=== PATIENT | female | born 1980 | race Caucasian/White ===

== ENCOUNTER 2018-08-12 20:32 | Emergency (ER) | payer OTHER ==
[2018-08-12 21:20] VITALS: BMI 35.4
[2018-08-12] MEDS ORDERED: SODIUM CHLORIDE 1,000 ML IV STA (23:04)
--- NOTE | 2018-08-12 23:04 | PDOC ---
History of Present Illness - General Chief Complaint: Nausea Stated Complaint: SICK Time Seen by Provider: 08/12/18 22:25 History Source: Patient Exam Limitations: Language Barrier ([employer]# [id number] [id number]) - History of Present Illness Travel History: No Initial Comments: 08/12/18 22:58 HISTORY OF PRESENT ILLNESS: This is a 38-year-old who is 26wks gestation who presents emergency Department for evaluation of epigastric pain for the past 2 days. Patient reports the pain is in the epigastric region describes as a fullness. She rates the pain 6/10 is unable to identify any aggravating or alleviating factors. Patient did note after eating yesterday she experienced a brief as a soda of dyspnea and a slight increase of pain. Patient reports the dyspnea resolved spontaneously within "a few moments." Patient reports an overall feeling of nausea but has not vomited. Denies any dizziness, blurry vision, chest pain, lower abdominal pain, change in child's movement, vaginal discharge or vaginal bleeding. No recent travel or sick contacts. PAST MEDICAL HISTORY: Denies past medical history SURGICAL HISTORY: Denies ALLERGIES: No known drug allergies REVIEW OF SYSTEMS General/Constitutional: Denies fever or chills. Denies weakness, weight change. HEENT: Denies change in vision. Denies ear pain or discharge. Denies sore throat. Cardiovascular: Denies chest pain or shortness of breath. Respiratory: Denies cough, wheezing, or hemoptysis. Gastrointestinal: Denies vomiting, diarrhea or constipation. Denies rectal bleeding. +nausea, epigastric pain Genitourinary: Denies dysuria, frequency, or change in urination. Musculoskeletal: Denies joint or muscle swelling or pain. Denies neck or back pain. Skin and breasts: Denies rash or easy bruising. Neurologic: Denies headache, vertigo, loss of consciousness, or loss of sensation. Psychiatric: Denies depression or anxiety. Endocrine: Denies increased thirst. Denies abnormal weight change. Hematologic/Lymphatic: Denies anemia, easy bleeding, or history of blood clots. Allergic/Immunologic: Denies hives or skin allergy. Denies latex allergy. PHYSICAL EXAM General Appearance: Well-appearing, appropriately dressed. No apparent distress , no intoxication. HEENT: EOMI, PERRLA, normal ENT inspection, normal voice, TMs normal, pharynx normal. No conjunctival pallor. No photophobia, scleral icterus. Neck: Supple. Trachea midline. No tenderness, rigidity, carotid bruit, stridor , lymphadenopathy, or thyromegaly. Respiratory/Chest: Lungs CTAB. No shortness of breath, chest tenderness, respiratory distress, accessory muscle use. No crackles, rales, rhonchi, stridor , wheezing, dullness Cardiovascular: RRR. S1, S2. No JVD, murmur, bradycardia, tachycardia. Gastrointestinal/Abdominal: Normal bowel sounds. Gravid abdomen. Epigastric tenderness. No rebound tenderness. No organomegaly, pulsatile mass, hernia, hepatomegaly, splenomegaly. Musculoskeletal/Extremities: Normal inspection. FROM of all extremities, normal capillary refill. Pelvis Stable. No CVA tenderness. No tenderness to extremities, pedal edema, swelling, erythema or deformity. Past History - Past Medical History Allergies/Adverse Reactions: Allergies Allergy/AdvReac Type Severity Reaction Status Date / Time No Known Allergies Allergy Verified 08/12/18 21:00 Home Medications: Ambulatory Orders NK [No Known Home Medication] 08/12/18 COPD: No - Suicide/Smoking/Psychosocial Hx Smoking History: Never smoked *Physical Exam - Vital Signs Last Vital Signs Temp Pulse Resp BP Pulse Ox 98.3 F 97 H 18 121/72 99 08/12/18 20:56 08/12/18 20:56 08/12/18 20:56 08/12/18 20:56 08/12/18 20:56 Moderate Sedation - Procedure Monitoring Vital Signs: Procedure Monitoring Vital Signs Temperature 98.3 F 08/12/18 20:56 Pulse Rate 97 H 08/12/18 20:56 Respiratory Rate 18 08/12/18 20:56 Blood Pressure 121/72 08/12/18 20:56 O2 Sat by Pulse Oximetry (%) 99 08/12/18 20:56 Heart Score/ECG Review - History History: Slightly suspicious - Electrocardiogram EKG: Normal - Age Age: </= 45 - Risk Factors Risk Factors Heart Score: No Hx Hypercholesterolemia, No Hx Hypertension, No Hx Diabetes, No Smoking History, No Positive family hx of cardiac disease, No Hx Obesity Based on the list above the patient has:: No risk factors known - Troponin Troponin: </= normal limit - Score Heart Score - Total: 0 - ECG Intrepretation Rhythm: Regular Rhythm - [place]: Normal - ECG Impressions Normal ECG: Yes ED Treatment Course - LABORATORY CBC & Chemistry Diagram: 08/12/18 23:00 08/12/18 23:00 Medical Decision Making - Medical Decision Making 08/12/18 23:14 A/P: 38-year-old upper abdominal pain for 2 days Epigastric tenderness present Positive guarding No CVA tenderness elicited 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 Ultrasound as read by imaging expeditionary fighting vehicle crewman: There is a large 2.4 cm stone within the gallbladder. There is no gallbladder wall thickening or pericholecystic fluid. Common bile duct measures 0.3 cm in diameter. Impression: 1. Cholelithiasis. 2. Diffuse fatty infiltration of liver. 3. Nonvisualization of the pancreas. Patient does feel better after receiving Maalox. This is most likely GERD. I will discharge the patient to labor and delivery for evaluation of the baby prior to discharge home. *DC/Admit/Observation/Transfer Diagnosis at time of Disposition: GERD (gastroesophageal reflux disease) Qualifiers: Esophagitis presence: without esophagitis Qualified Code(s): K21.9 - Gastro- esophageal reflux disease without esophagitis - Discharge Dispostion Disposition: HOME Condition at time of disposition: Stable Decision to Admit order: No - Referrals Referrals: Kolby Burgos [Primary Care Provider] - Goran Gaona MD [Staff Physician] - - Patient Instructions Additional Instructions: Eat a well-balanced diet low in fatty and spicy foods. Your ultrasound showed gallstones but did not show active disease. Drink plenty of fluids. You may take Maalox as needed for abdominal pain. 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 Return to emergency department for any worsening symptoms or any other concerns. Thank you very much for choosing us to provide your emergent health care needs. Coma edyta dieta aurora balanceada baja en alimentos grasos y picantes. Horowitz ecografa mostr clculos biliares gildardo no mostr enfermedad activa. Beber mucho lquido. Puede elías Maalox segn sea necesario para el dolor abdominal. Denia un seguimiento con horowitz obstetra daniel se haba programado anteriormente. Regrese al departamento de emergencias por cualquier empeoramiento de los sntomas o cualquier otra inquietud. Muchas caty por elegirnos para satisfacer marilia necesidades de atencin mdica de emergencia. FOLLOW UP AT THE CLINIC THIS WEEK. RETURN TO LABOR AND DELIVERY IF YOU START TO HAVE CONTRACTIONS YOU BREAK YOUR WATER YOU HAVE ANY VAGINAL BLEEDING YOU DO NOT FEEL THE BABY MOVING - Post Discharge Activity
[2018-08-12] MEDS ORDERED: MAG HYDROX/AL HYDROX/SIMETH 30 ML UNIT-DOSE CUP PO ONE (23:12)
[2018-08-12] MEDS ORDERED: MAG HYDROX/AL HYDROX/SIMETH 30 ML UNIT-DOSE CUP ONE (23:32)
[2018-08-12 23:40] LABS: BASO % 0.2 % (0-2.0); EOS % 0.8 % (0-4.5); HEMATOCRIT 31.9 % (32.4-45.2); HEMOGLOBIN 11.5 GM/dL (10.7-15.3); LYMPH % 19.7 % (8-40); MCH 29.2 pg (25.7-33.7); MEAN CELL VOLUME 81.2 fl (80-96); MEAN PLT VOLUME 9.3 fl (7.5-11.1); MONO % 5.2 % (3.8-10.2); NEUT % 74.1 % (42.8-82.8); PLATELET COUNT 297 K/MM3 (134-434); RBC 3.93 M/mm3 (3.60-5.2); RDW 13.4 % (11.6-15.6); WHITE BLOOD COUNT 8.2 K/mm3 (4.0-10.0)
[2018-08-13 00:18] LABS: ALBUMIN 3.1 g/dl (3.4-5.0); ALK PHOS 98 U/L (45-117); ANION GAP 12 MMOL/L (8-16); BILIRUBIN,TOTAL 0.5 mg/dL (0.2-1); BLOOD UREA NITROGEN 8 mg/dL (7-18); CALCIUM 9.2 mg/dL (8.5-10.1); CHLORIDE 105 mmol/L (98-107); CO2 19 mmol/L (21-32); CREATININE 0.6 mg/dL (0.55-1.3); GLUCOSE,RANDOM 88 mg/dL (74-106); LIPASE 206 U/L (73-393); POTASSIUM 4.4 mmol/L (3.5-5.1); SGOT/AST 31 U/L (15-37); SGPT/ALT 44 U/L (13-61); SODIUM 136 mmol/L (136-145); TOT PROT 7.7 g/dl (6.4-8.2)
[2018-08-13 00:34] LABS: URINE APPEARANCE CLEAR; URINE BILIRUBIN NEGATIVE (<2.0 mg/dL); URINE COLOR DKYELLOW; URINE GLUCOSE (UA) NEGATIVE (NEGATIVE); URINE KETONE NEGATIVE (NEGATIVE); URINE LEUK ESTERASE NEGATIVE (NEGATIVE); URINE NITRITE NEGATIVE (NEGATIVE); URINE PROTEIN 1+ (NEGATIVE); URINE UROBILINOGEN NEGATIVE mg/dL (0.2-1.0)
[2018-08-13 00:37] LABS: EPI CELLS MODERATE /HPF (FEW); URINE HYALINE CAST 1 /lpf; URINE MUCUS MANY
[2018-08-13 05:01] VITALS: BP 113/52; PULSE 78; TEMP 98.5
--- NOTE | 2018-08-13 11:26 | EKG ---
Test Reason : Blood Pressure : / mmHG Vent. Rate : 086 BPM Atrial Rate : 086 BPM P-R Int : 132 ms QRS Dur : 072 ms QT Int : 340 ms P-R-T Axes : 058 038 017 degrees QTc Int : 406 ms NORMAL SINUS RHYTHM NORMAL ECG NO PREVIOUS ECGS AVAILABLE Confirmed by MINAL WARREN MD ([id number]) on 08/13/2018 11:25:53 AM Referred By: Confirmed By:MINAL WARREN MD
== END 2018-08-13 05:05 | disposition home or self-care (01) ==
LOC: JER 20:32
PROC: 3E0337Z Introduction of Electrolytic and Water Balance Substance into Peripheral Vein, Percutaneous Approach (ICD-10-PCS; principal; 2018-08-12)
DX: O26.892 Other specified pregnancy related conditions, second trimester (principal); O99.612 Diseases of the digestive system complicating pregnancy, second trimester; K80.20 Calculus of gallbladder without cholecystitis without obstruction; K21.9 Gastro-esophageal reflux disease without esophagitis; Z3A.26 26 weeks gestation of pregnancy
CPT/HCPCS: 36415; 76705-TC; 80053; 81003; 81015; 82550; 83690; 84484; 84702; 85025; 86850; 86900; 86901; 93005; 93010; 99282-25; J7030

== ENCOUNTER 2018-11-10 01:45 | Inpatient (IN) | payer OTHER ==
[2018-11-10] MEDS ORDERED: DEXTROSE 5%-LACTATED RINGERS 1,000 ML IV SCH (02:00)
[2018-11-10] MEDS ORDERED: AMPICILLIN - 2 GM in SODIUM CHLORIDE 100 ML IVPB ONE ×2 (02:00→03:45)
[2018-11-10] MEDS ORDERED: AMPICILLIN SODIUM 2 GM VIAL ONE (03:44)
[2018-11-10 04:18] LABS: BASO % 0.2 % (0-2.0); EOS % 0.2 % (0-4.5); HEMATOCRIT 33.4 % (32.4-45.2); HEMOGLOBIN 10.9 GM/dL (10.7-15.3); LYMPH % 23.8 % (8-40); MCH 25.4 pg (25.7-33.7); MCHC 32.6 g/dl (32.0-36.0); MEAN CELL VOLUME 77.9 fl (80-96); MEAN PLT VOLUME 10.1 fl (7.5-11.1); MONO % 4.9 % (3.8-10.2); NEUT % 70.9 % (42.8-82.8); PLATELET COUNT 274 K/MM3 (134-434); RBC 4.29 M/mm3 (3.60-5.2); RDW 13.7 % (11.6-15.6); WHITE BLOOD COUNT 7.9 K/mm3 (4.0-10.0)
[2018-11-10 04:33] LABS: INR 0.91 (0.83-1.09); PROTHROMBIN TIME (PATIENT) 10.7 SEC (9.7-13.0)
[2018-11-10 04:36] LABS: ACTIVATED PTT 32.1 SECONDS (25.2-36.5)
[2018-11-10 04:42] LABS: ANION GAP 12 MMOL/L (8-16); BLOOD UREA NITROGEN 12 mg/dL (7-18); CALCIUM 8.7 mg/dL (8.5-10.1); CHLORIDE 104 mmol/L (98-107); CO2 22 mmol/L (21-32); CREATININE 0.7 mg/dL (0.55-1.3); GLUCOSE,RANDOM 69 mg/dL (74-106); POTASSIUM 4.4 mmol/L (3.5-5.1); SODIUM 138 mmol/L (136-145)
[2018-11-10] MEDS ORDERED: BUTORPHANOL TARTRATE 1 MG/ML VIAL IVPB ONE (04:45)
[2018-11-10] MEDS ORDERED: PROMETHAZINE HCL 25 MG/1 ML VIAL IVPB ONE (04:45)
[2018-11-10] MEDS ORDERED: BUTORPHANOL TARTRATE 1 MG/ML VIAL ONE ×2 (04:48)
[2018-11-10] MEDS ORDERED: PROMETHAZINE HCL 25 MG/1 ML VIAL ONE (04:48)
[2018-11-10 05:19] VITALS: BMI 38.2
[2018-11-10] MEDS ORDERED: TUBERCULIN PPD 5 TU/0.1ML SYRINGE (IN PATIENT USE ONLY) ID ONE (06:30)
[2018-11-10] MEDS ORDERED: OXYTOCIN 20 UNITS in 0.9% NS 20 UNIT/1,000 ML INFUS.BAG IV ONE ×3 (07:21→09:56)
[2018-11-10] MEDS ORDERED: LIDOCAINE HCL 1% PRESERVATIVE FREE - 30ML VIAL ONE (07:21)
[2018-11-10] MEDS ORDERED: OXYTOCIN 30 UNITS in 0.9% NS 30 UNIT/500 ML INFUS.BAG IVPB ONE (07:21)
--- NOTE | 2018-11-10 07:27 | HP ---
Past Medical History - Primary Care Physician PCP:: Goran Gaona - Admission Chief Complaint: 39 weeks, labor, ama , grand multiparity History of Present Illness: 38 yo f g 9 [id number] edc by sono 11/14/18 , 39.4 weeks, labor , cx 8 cm 80 vx 0 , mi , fhr cat 1, irregular contraction History Source: Patient Limitations to Obtaining History: Language Barrier - Past Medical History ...: 9 ...Para: 6 ...Term: 6 ...Spon : 1 ...Induced : 1 ...LMP: 01/20/18 ... Weeks Gestation by Dates: 42 ...EDC by Dates: 10/27/18 ...EDC by Sono: 11/14/18 Heme/Onc: Yes: Anemia - Past Surgical History Hx Myomectomy: No Hx Transabdominal Cerclage: No - Smoking History Smoking history: Never smoked - Alcohol/Substance Use Hx Alcohol Use: No - Social History Usual Living Arrangement: Yes: With Spouse History of Recent Travel: No Home Medications - Allergies Allergies/Adverse Reactions: Allergies Allergy/AdvReac Type Severity Reaction Status Date / Time No Known Allergies Allergy Verified 10/09/18 12:29 - Home Medications Home Medications: Ambulatory Orders NK [No Known Home Medication] 08/12/18 Review of Systems - Review of Systems Constitutional: reports: No Symptoms Eyes: reports: No Symptoms HENT: reports: No Symptoms Neck: reports: No Symptoms Cardiovascular: reports: No Symptoms Respiratory: reports: No Symptoms Genitourinary: reports: No Symptoms Breasts: reports: No Symptoms Reported Musculoskeletal: reports: No Symptoms Integumentary: reports: No Symptoms Neurological: reports: No Symptoms Endocrine: reports: No Symptoms Hematology/Lymphatic: reports: No Symptoms Psychiatric: reports: No Symptoms Physical Exam - Maternity Vital Signs: Vital Signs Temperature 98.2 F 11/10/18 05:00 Pulse Rate 88 11/10/18 05:00 Respiratory Rate 20 11/10/18 05:00 Blood Pressure 120/73 11/10/18 05:00 O2 Sat by Pulse Oximetry (%) Constitutional: Yes: Well Nourished, No Distress, Calm Eyes: Yes: WNL, Conjunctiva Clear, EOM Intact HENT: Yes: WNL, Atraumatic, Normocephalic Neck: Yes: WNL, Supple, Trachea Midline Cardiovascular: Yes: WNL, Regular Rate and Rhythm Breast(s): Yes: WNL - Abdominal Exam/OB Fundal Height: 40 Number of Fetuses: Single Presentation: Vertex Contractions: Yes Regularity: Irregular Intensity: Mod/Strong Monitor Mode: External Heart Rate Location: [facility] Category: I Accelerations: Uniform Decelerations: None - Vaginal Exam/OB Vaginal Bleediing: No Speculum Exam: No Dilatation (cm): 8 cm Effacement (%): 80 Amniotic Membrane Status: Bulging Presentation: Vertex/Position Station: -1 - Physical Exam Musculoskeletal: Yes: WNL Extremities: Yes: WNL Edema: LLE: Trace, RLE: Trace Deep Tendon Reflex Grade: Normal +2 Psychiatric: Yes: WNL - Labs Lab Results: CBC, BMP 11/10/18 03:20 11/10/18 03:20 Hemorrhage Risk Assessment - Risk Factors Medium Risk Factors: Yes: Multiple gestation Risk Score: 2 Risk Level: High Risk Problem List - Problems (1) with 39 completed weeks gestation Code(s): Z3A.39 - 39 WEEKS GESTATION OF (2) Labor established Code(s): AEA8111 - (3) Elderly multigravida delivered Code(s): O09.529 - SUPERVISION OF ELDERLY MULTIGRAVIDA, UNSPECIFIED TRIMESTER Assessment/Plan plan admit, fhm , pain management
[2018-11-10] MEDS ORDERED: AMPICILLIN SODIUM 1 GM VIAL ONE (07:28)
--- NOTE | 2018-11-10 07:29 | PN ---
Progress Note (short form) - Note Progress Note: cx 8 cm ,80 vx -1 arom, clear , fhr cat 1 Problem List - Problems (1) with 39 completed weeks gestation Code(s): Z3A.39 - 39 WEEKS GESTATION OF (2) Labor established Code(s): SLW4744 - (3) Elderly multigravida delivered Code(s): O09.529 - SUPERVISION OF ELDERLY MULTIGRAVIDA, UNSPECIFIED TRIMESTER
[2018-11-10] MEDS: AMPICILLIN - 1 GM in SODIUM CHLORIDE 100 ML IVPB SCH ×4 (07:45→21:08)
[2018-11-10] MEDS ORDERED: IBUPROFEN 600 MG TABLET (FP) PO ONE (08:26)
[2018-11-10] MEDS ORDERED: ACETAMINOPHEN 325 MG TABLET (FP) ONE (08:26)
[2018-11-10] MEDS ORDERED: BENZOCAINE 28 GM HEMORRHOIDAL OINTMENT TP PRN (08:28)
[2018-11-10] MEDS ORDERED: BENZOCAINE 20% 57 GM BOTTLE TP PRN (08:28)
[2018-11-10] MEDS ORDERED: WITCH HAZEL 50% (TUCKS) 40 PAD/JAR PAD TP PRN (08:28)
[2018-11-10] MEDS ORDERED: BISACODYL 10 MG SUPP.RECT RC PRN (08:28)
[2018-11-10] MEDS ORDERED: METHYLERGONOVINE MALEATE 0.2 MG/1 ML AMP IM PRN (08:28)
[2018-11-10] MEDS ORDERED: OXYTOCIN 20 UNITS in 0.9% NS 20 UNIT/1,000 ML INFUS.BAG IV SCH (08:30)
[2018-11-10] MEDS ORDERED: D5W-LR W/ 20 UNITS OXYTOCIN 20 UNIT/1,000 ML INFUS.BAG IV SCH (08:30)
[2018-11-10 09:03] LABS: VENOUS PC02 44.5 mmHg (41-51); VENOUS PH 7.31 (7.31-7.41); VENOUS PO2 27.6 mmHg (30-40)
[2018-11-10 09:34] LABS: COCAINE, UR NEGATIVE ng/ml (CUTOFF=300); METHADONE, UR NEGATIVE ng/ml (CUTOFF=300); OPIATES, URI NEGATIVE ng/ml (CUTOFF=300); PHENCYCLIDINE,URINE NEGATIVE ng/ml (CUTOFF=25); URINE AMPHETAMINES NEGATIVE ng/ml (CUTOFF=500); URINE BARBITURATES NEGATIVE ng/ml (CUTOFF=200); URINE BENZODIAZEPINES NEGATIVE ng/ml (CUTOFF=200)
[2018-11-10] MEDS: FERROUS SO4 325 MG TABLET (FP) PO SCH ×2 (11:39→21:13)
[2018-11-10] MEDS: PRENATAL VITAMINS W/ FOLIC ACID TABLET (FP) PO SCH (11:40)
[2018-11-10] MEDS: ACETAMINOPHEN 325 MG TABLET (FP) PO PRN ×3 (11:40→21:13)
[2018-11-10] MEDS: IBUPROFEN 600 MG TABLET (FP) PO PRN ×2 (11:41→21:13)
[2018-11-11] MEDS: AMPICILLIN - 1 GM in SODIUM CHLORIDE 100 ML IVPB SCH ×2 (03:22→06:59)
[2018-11-11 08:57] LABS: BASO % 0.4 % (0-2.0); EOS % 1.4 % (0-4.5); HEMATOCRIT 26.2 % (32.4-45.2); HEMOGLOBIN 8.7 GM/dL (10.7-15.3); LYMPH % 28.8 % (8-40); MCH 25.9 pg (25.7-33.7); MCHC 33.2 g/dl (32.0-36.0); MEAN CELL VOLUME 78.1 fl (80-96); MEAN PLT VOLUME 9.8 fl (7.5-11.1); NEUT % 64.4 % (42.8-82.8); PLATELET COUNT 232 K/MM3 (134-434); RBC 3.36 M/mm3 (3.60-5.2); RDW 13.5 % (11.6-15.6); WHITE BLOOD COUNT 7.8 K/mm3 (4.0-10.0)
[2018-11-11] MEDS: PRENATAL VITAMINS W/ FOLIC ACID TABLET (FP) PO SCH (09:12)
[2018-11-11] MEDS: FERROUS SO4 325 MG TABLET (FP) PO SCH ×2 (09:12→21:21)
[2018-11-11] MEDS ORDERED: DIPHTH,PERTUSS(ACELL),TET 0.5 ML DISP.SYRIN IM ONE (10:00)
--- NOTE | 2018-11-11 18:10 | PN ---
Post Progress Note - Subjective Subjective: doing well, no comlaints, has pos ppd--will get cxr Type of Delivery: Vital Signs: Vital Signs Temperature 98.9 F 11/11/18 07:40 Pulse Rate 72 11/11/18 07:40 Respiratory Rate 18 11/11/18 07:40 Blood Pressure 122/74 11/11/18 07:40 O2 Sat by Pulse Oximetry (%) Breast Exam: Yes: Soft Uterus: Yes: Fundus Firm Abdomen/GI: Yes: Abdomen soft Lochia: Yes: Rubra Lochia, amount: Small Extremities: Yes: Calves non-tender Perineum: Yes: Intact Activity: Ambulating - Labs Labs: CBC WBC 7.8 K/mm3 (4.0-10.0) 11/11/18 06:00 RBC 3.36 M/mm3 (3.60-5.2) L 11/11/18 06:00 Hgb 8.7 GM/dL (10.7-15.3) L 11/11/18 06:00 Hct 26.2 % (32.4-45.2) L D 11/11/18 06:00 MCV 78.1 fl (80-96) L 11/11/18 06:00 MCH 25.9 pg (25.7-33.7) 11/11/18 06:00 MCHC 33.2 g/dl (32.0-36.0) 11/11/18 06:00 RDW 13.5 % (11.6-15.6) 11/11/18 06:00 Plt Count 232 K/MM3 (134-434) 11/11/18 06:00 MPV 9.8 fl (7.5-11.1) 11/11/18 06:00 Absolute Neuts (auto) 5.0 K/mm3 (1.5-8.0) 11/11/18 06:00 Neutrophils % 64.4 % (42.8-82.8) 11/11/18 06:00 Lymphocytes % 28.8 % (8-40) D 11/11/18 06:00 Monocytes % 5.0 % (3.8-10.2) 11/11/18 06:00 Eosinophils % 1.4 % (0-4.5) D 11/11/18 06:00 Basophils % 0.4 % (0-2.0) 11/11/18 06:00 Nucleated RBC % 0 % (0-0) 11/11/18 06:00 Assessment/Plan cxr is neg routine pp care
[2018-11-11] MEDS: IBUPROFEN 600 MG TABLET (FP) PO PRN (21:21)
[2018-11-11] MEDS: ACETAMINOPHEN 325 MG TABLET (FP) PO PRN (21:21)
[2018-11-11] MEDS ORDERED: SENNOSIDES/DOCUSATE COMBO (SENNA PLUS) TABLET (UD) PO PRN (22:00)
[2018-11-12 08:31] VITALS: BP 113/65; PULSE 68; TEMP 98.6
[2018-11-12] MEDS: PRENATAL VITAMINS W/ FOLIC ACID TABLET (FP) PO SCH (09:11)
[2018-11-12] MEDS: FERROUS SO4 325 MG TABLET (FP) PO SCH (09:11)
--- NOTE | 2018-11-14 12:56 | DS ---
Physical Exam-SENIOR APPLICATIONS ANALYST Vital Signs: Vital Signs Temperature 98.6 F 11/12/18 07:20 Pulse Rate 68 11/12/18 07:20 Respiratory Rate 18 11/12/18 07:20 Blood Pressure 113/65 11/12/18 07:20 O2 Sat by Pulse Oximetry (%) Constitutional: Yes: Well Nourished, No Distress, Calm Eyes: Yes: WNL, Conjunctiva Clear, EOM Intact HENT: Yes: WNL, Atraumatic, Normocephalic Neck: Yes: WNL, Supple, Trachea Midline Cardiovascular: Yes: WNL, Regular Rate and Rhythm Respiratory: Yes: WNL, Regular, CTA Bilaterally Gastrointestinal: Yes: WNL ...Rectal Exam: Yes: WNL Renal/: Yes: WNL ....Post : Yes: Uterus firm, Uterus non-tender, Slight lochia rubra Breast(s): Yes: WNL Musculoskeletal: Yes: WNL Extremities: Yes: WNL Integumentary: Yes: WNL Neurological: Yes: WNL, Alert, Oriented ...Motor Strength: WNL Psychiatric: Yes: WNL, Alert, Oriented Labs: CBC, BMP 11/11/18 06:00 11/10/18 03:20 Delivery - Delivery Vaginal Delivery: Spontaneous (no complication) Type of Anesthesia: None Episiotomy/Laceration: None EBL (cc): 300 Delivery, Single - Stages of Labor Date 1st Stage Initiatied: 11/10/18 Time 1st Stage Initiated: 00:00 Date 2nd Stage Initiated: 11/10/18 Time 2nd Stage Initiated: 08:10 Date of Delivery: 11/10/18 Time of Delivery: 08:13 Time Placenta Delivered: 08:15 Placenta: Yes: Spontaneous (no complication) - Condition of Infant Chemical Production Machine Operator/Carpet Technician Present: No Infant Gender: Male Weight: 7 lb 2 oz Position: Left, OA Total Hours ROM (Hrs/Mins): 1hr 13min - 1 Minute Total Score: 9 5 Minutes Total Score: 9 - Feeding Plan Initial Plan: Elected not to breastfeed exclusively throughout hospitalization Discharge Summary Reason For Visit: LABOR ADMIT Procedures: Principal: Hospital Course: no complication Condition: Good - Instructions Diet, Activity, Other Instructions: reg diet, pelvic rest Call [facility] and make appt. to be seen in 4 to 6 weeks. If pain, fever or heavy bleeding, call MSarah [facility]: [phone] Referrals: Goran Gaona MD [Staff Physician] - Disposition: HOME - Home Medications Comprehensive Discharge Medication List: Ambulatory Orders NK [No Known Home Medication] 08/12/18
== END 2018-11-12 13:00 | disposition home or self-care (01) | DRG 560 ==
LOC: JLDR 01:45 → J3W 10:02
PROVIDERS: ADMIT Obstetrics & Gynecology; ATTEND Obstetrics & Gynecology
PROC: 10E0XZZ Delivery of Products of Conception, External Approach (ICD-10-PCS; principal; 2018-11-10)
DX: O80 Encounter for full-term uncomplicated delivery (principal); Z3A.39 39 weeks gestation of pregnancy; Z37.0 Single live birth
CPT/HCPCS: 36415; 59409; 71046-TC-FY; 80048; 80307; 82803; 85025; 85610; 85730; 86593; 86850; 86900; 86901; 87389; 90715

== ENCOUNTER 2018-12-03 14:03 | Inpatient (IN) | payer OTHER ==
[2018-12-03] MEDS ORDERED: ACETAMINOPHEN 1000 MG/100 ML VIAL (NON FORMULARY) IVPB ONE (14:45)
[2018-12-03] MEDS ORDERED: SODIUM CHLORIDE 1,000 ML IV STA (14:46)
--- NOTE | 2018-12-03 14:55 | PDOC ---
Documentation entered by Ania Tanner SCRIBE, acting as scribe for Chhaya Hill DO. Chhaya Hill DO: This documentation has been prepared by the Ciro easley Daisy, SCRIBE, under my direction and personally reviewed by me in its entirety. I confirm that the documentation accurately reflects all work, treatment, procedures, and medical decision making performed by me. Attending Attestation - Resident Resident Name: PeteMariola - ED Attending Attestation I have performed the following: I have examined & evaluated the patient, The case was reviewed & discussed with the resident, I agree w/resident's findings & plan - HPI HPI: 12/03/18 14:30 The patient is a 38 YOF with no PMH who presents with shortness of breath since this morning. Patient states that she had an argument with her significant other last night but was otherwise in her usual state of health. Patient is also complaining of associated epigastric pain and 2 episode of NB, NB vomiting. Of note, the patient had a vaginal delivery 3 weeks ago with no complications. Patient was told she had elevated blood glucose throughout her , but was not diagnosed with diabetes. Allergies: NKDA Social Hx: No reported alcohol, drug or cigarette use. Surgeries: None reported. - Physicial Exam PE: 12/03/18 14:39 ADULT PHYSICAL EXAM Constitutional: Awake, alert, oriented. (+) wants to sit uprights, feel short of breath lying flat. Eyes: PERRL. EOMI. Conjunctivae are not pale. ENT: Mucous membranes are moist and intact. Posterior pharynx without exudates or erythema. Uvula midline. Cardiovascular: (+) Tachycardic. Regular rhythm. S1, S2 regular. Distal pulses are 2+ and symmetric. Pulmonary/Chest: No evidence of respiratory distress. Clear to auscultation bilaterally. No wheezing, rales or rhonchi. Abdominal: Soft and non-distended. (+) epigastric and RUQ tenderness. No rebound, guarding or rigidity. No organomegaly. No palpable masses. Good bowel sounds. Musculoskeletal: No edema. Full range of motion in all extremities. No calf tenderness. Skin: Skin is warm and dry. Neurological: Alert and oriented to person, place, and time. Cranial nerves II -XII are grossly intact. Psychiatric: Good eye contact. Normal interaction, affect and behavior. - Medical Decision Making 12/03/18 14:51 a/p: 38yo female with nausea, epigastric pain and diarrhea today, also acute onset of SOB this AM -no pleuritic cp -pt is 3 weeks -no LE swelling or calf cramping -pt denies vomiting -had epigastric ruq pain during preg -concern for HELLP, biliary disease, pre-eclampsia, acute PE -pt is tachy and tachypnic, does not want to lay flat -will send labs, ultrasound, cta chest -bedside ultrasound does not show acute RV strain, no pericardial effusion, no b lines in the chest, normal ef -bedside ultrasound of the RUQ shows stones and sonographic murphys, no pericholecystic fluid, normal gb wall, no dilated cbd -will monitor and reassess 12/03/18 18:40 pt with large gallstone, no gb wall thickening cta pending sob improved pt still with RUQ pain and epgiastric pain- suspect biliary colic case discussed with Dr. Ochoa who will see the patient in consult pt states still in pain and will stay for further eval pt denies sob and is laying flat and comfortable does now c/o dysuria. ua/ucx ordered 12/03/18 19:11 microblog sent to [facility] for admission 12/03/18 19:11 cta neg
--- NOTE | 2018-12-03 14:56 | PDOC ---
History of Present Illness - General Chief Complaint: Pain Stated Complaint: PAIN Time Seen by Provider: 12/03/18 14:06 History Source: Patient Exam Limitations: Language Barrier - History of Present Illness Initial Comments: 12/03/18 14:48 38 y/o female with no PMH presented to the ED with acute onset of shortness of breath and abdominal pains. Patient got into an argument last night with her significant other which got her very worked up and anxious. When she woke up this morning, she was very short of breath and was also having palpitations in addition to some dizziness.. In addition she is complaining of RUQ pain, with 2 episodes of diarrhea. She states that this pain was there through some of her however it is non radiating and it is not related to food intake. Of note, she had a baby 3 weeks ago at this hospital (normal vaginal delivery with no complications.) She denies having any cough, cold, fevers or systemic symptoms. In addition, she denies any recent travel. This was her 10th , all of which were normal, uncomplicated. This has never happened to her before- she did not experience this with ay of her other pregnancies. She denies any recent surgeries, medication use or smoking history. She denies any chest pains however she does have pain when she takes a deep breath in and the dyspnea is worse when she lies flat. She deneis any sick contacts or any recent illnesses. Timing/Duration: 4-6 hours Severity: moderate Associated Symptoms: reports: shortness of breath. denies: chest pain, cough Past History - Travel Traveled outside of the country in the last 30 days: No Close contact w/someone who was outside of country & ill: No - Past Medical History Allergies/Adverse Reactions: Allergies Allergy/AdvReac Type Severity Reaction Status Date / Time No Known Allergies Allergy Verified 10/09/18 12:29 Home Medications: Ambulatory Orders NK [No Known Home Medication] 08/12/18 Asthma: No Cancer: No Cardiac Disorders: No COPD: No Diabetes: No HTN: No Hypercholesterolemia: No Seizures: No Thyroid Disease: No - Suicide/Smoking/Psychosocial Hx Smoking Status: No Smoking History: Never smoked Have you smoked in the past 12 months: No Information on smoking cessation initiated: No Hx Alcohol Use: No Drug/Substance Use Hx: No Hx Substance Use Treatment: No Review of Systems - Review of Systems Able to Perform ROS?: Yes Is the patient limited Hungarian proficient: Yes Constitutional: Yes: Diaphoresis HEENTM: No: Blurred Vision Respiratory: Yes: Shortness of Breath. No: Cough Cardiac (ROS): Yes: Palpitations. No: Chest Pain ABD/GI: Yes: Other (RUQ abdominal pain) : No: Burning, Dysuria, Urgency Neurological: Yes: Dizziness. No: Headache, Numbness Psychiatric: Yes: Anxiety *Physical Exam - Vital Signs Last Vital Signs Temp Pulse Resp BP Pulse Ox 98.8 F 112 H 18 130/78 100 12/03/18 14:11 12/03/18 14:11 12/03/18 14:11 12/03/18 14:11 12/03/18 14:11 - Physical Exam General Appearance: Yes: Moderate Distress Neck: positive: Normal Thyroid Respiratory/Chest: positive: Lungs Clear, Normal Breath Sounds Cardiovascular: positive: Regular Rhythm, S1, S2, Tachycardia Gastrointestinal/Abdominal: positive: Tender (RUQ /epigastric tenderness), Flat , Soft Musculoskeletal: negative: CVA Tenderness Extremity: positive: Normal Inspection Neurologic: positive: Fully Oriented, Alert ED Treatment Course - LABORATORY CBC & Chemistry Diagram: 12/03/18 15:03 12/03/18 15:03 - RADIOLOGY Radiology Studies Ordered: Category Date Time Status CHEST CTA [CT] Stat CT Scan 12/03/18 14:45 Ordered ABDOMEN US [US] Stat Ultrasound 12/03/18 14:44 Ordered Medical Decision Making - Medical Decision Making 12/03/18 14:59 cbc/cmp/trop/Pt; PTT bedside US done: gallstones visualized; no effusion, normal RV; no strain official RUQ US ordered CTA ordered IV tylneol;fluids NPO ddx: PE, HELLP, pancreatitis, gallstones, u/S done showing large gallstone; spoke with dr hodgson- will see patient in AM for possible lap carissa will admit to [facility] 12/03/18 15:22 12/03/18 18:42 *DC/Admit/Observation/Transfer Diagnosis at time of Disposition: Cholelithiasis - Discharge Dispostion Condition at time of disposition: Stable Decision to Admit order: Yes - Referrals - Patient Instructions - Post Discharge Activity - Attestations Physician Attestion: 12/03/18 19:12 Mariola Freeman
[2018-12-03 15:15] LABS: BASO % 0.3 % (0-2.0); EOS % 1.3 % (0-4.5); HEMATOCRIT 35.5 % (32.4-45.2); HEMOGLOBIN 11.8 GM/dL (10.7-15.3); LYMPH % 24.1 % (8-40); MCH 25.7 pg (25.7-33.7); MCHC 33.3 g/dl (32.0-36.0); MEAN CELL VOLUME 77.3 fl (80-96); MEAN PLT VOLUME 9.1 fl (7.5-11.1); MONO % 7.7 % (3.8-10.2); NEUT % 66.6 % (42.8-82.8); PLATELET COUNT 317 K/MM3 (134-434); RBC 4.59 M/mm3 (3.60-5.2); RDW 14.4 % (11.6-15.6); WHITE BLOOD COUNT 6.7 K/mm3 (4.0-10.0)
[2018-12-03] MEDS ORDERED: ACETAMINOPHEN INJECTION 100 ML IVPB ONE (15:17)
[2018-12-03 15:26] LABS: INR 0.89 (0.83-1.09); PROTHROMBIN TIME (PATIENT) 10.5 SEC (9.7-13.0)
[2018-12-03 15:29] LABS: ACTIVATED PTT 32.9 SECONDS (25.2-36.5)
[2018-12-03 15:40] LABS: ALBUMIN 3.8 g/dl (3.4-5.0); ALK PHOS 129 U/L (45-117); ANION GAP 9 MMOL/L (8-16); BILIRUBIN,TOTAL 0.3 mg/dL (0.2-1); BLOOD UREA NITROGEN 4 mg/dL (7-18); CALCIUM 8.1 mg/dL (8.5-10.1); CHLORIDE 109 mmol/L (98-107); CO2 23 mmol/L (21-32); CREATININE 0.8 mg/dL (0.55-1.3); GLUCOSE,RANDOM 115 mg/dL (74-106); POTASSIUM 3.7 mmol/L (3.5-5.1); SGOT/AST 32 U/L (15-37); SGPT/ALT 51 U/L (13-61); SODIUM 142 mmol/L (136-145); TOT PROT 7.8 g/dl (6.4-8.2)
[2018-12-03] MEDS ORDERED: MORPHINE SULFATE 2 MG/ML VIAL IVPUSH ONE (19:06)
--- NOTE | 2018-12-03 19:43 | PN ---
Teaching Attending Note ATTENDING PHYSICIAN STATEMENT I saw and evaluated the patient. I reviewed the resident's note and discussed the case with the resident. I agree with the resident's findings and plan as documented. SUBJECTIVE: Seen and examined; please refer to resident note for further historical information. Briefly, this is a 38 y/o female presenting with abdominal pain. 10 sys ROS done and negative aside from HPI PMH, PSH, FH, SH reviewed Home Medications Medication Instructions Recorded NK [No Known Home Medication] 08/12/18 OBJECTIVE: VS, labs, imaging reviewed ASSESSMENT AND PLAN:
--- NOTE | 2018-12-03 19:54 | PN ---
Teaching Attending Note Name of Resident: Job Martinez ATTENDING PHYSICIAN STATEMENT I saw and evaluated the patient. I reviewed the resident's note and discussed the case with the resident. I agree with the resident's findings and plan as documented. SUBJECTIVE: Seen and examined; please refer to resident note for further historical information. No PMH, recent vaginal delivery 3 weeks ago. She presents with SOB and abdominal pain since this AM associated with anxiety; was emotionally stressed last night. Abdominal pain RUQ to epigastric, moderate intensity, non- radiating. Nothing makes it better or worse, hasn't had this in the past. + Nausea but no vomitting or diarrhea. She was not SOB when encountered in the ER and had a negative CT chest. VS stable and she is nontoxic. Dr. Ochoa spoke to the ER and will see the patient tomorrow. 10 sys ROS done and negative aside from HPI PMH, PSH, SH, FH reviewed Home Medications Medication Instructions Recorded NK [No Known Home Medication] 08/12/18 OBJECTIVE: VS, labs, imaging reviewed NAD, AAO, resting comfortably in bed NC AT EOMI PERRLA RRR s1/2 no mgr Lungs CTAB, w/ sym ext Mild upper abdominal pain, non-distended, +BS CN2-12 wnl, no fnd Normal mood, appropriate affect Imaging shows fatty liver with GB wall thickening, non-dilated CBD, and a large stone in the GB. No pericholecystic fluid. Alk phos mildly elevated 129 ASSESSMENT AND PLAN: Patient presents to the ER with abdominal pain 1) Biliary Colic, r/o cholecystitis -Followup sgy recs; appreciate expert opinion. Followup HIDA. NPO, IVF, pain and nausea control. -As no WBC, no fever, not toxic and no pericholecystic fluid with only mild GB wall thickening will hold off on abx for now. Should she clinically worsen of course will cover. 2) Microcytosis without anemia -Check iron studies 3) Elevated alk phos -Check GGT 4) Hyperglycemia -Very mild; followup A1c. Glucosuria noted. FENA -LR@100 -PRN replete -NPO -As tolerated DVT px: SCDs and early ambulation Full Code
[2018-12-03 20:00] LABS: URINE APPEARANCE CLOUDY; URINE BILIRUBIN NEGATIVE (NEGATIVE); URINE COLOR YELLOW; URINE GLUCOSE (UA) 3+ (NEGATIVE); URINE KETONE NEGATIVE (NEGATIVE); URINE LEUK ESTERASE NEGATIVE (NEGATIVE); URINE NITRITE NEGATIVE (NEGATIVE); URINE PROTEIN NEGATIVE (NEGATIVE); URINE UROBILINOGEN 0.2 mg/dL (0.2-1.0)
[2018-12-03] MEDS ORDERED: morphine SULFATE 4 MG/ML VIAL ONE (20:00)
--- NOTE | 2018-12-03 20:02 | HP ---
CHIEF COMPLAINT: Abdominal pain + SOB PCP: None HISTORY OF PRESENT ILLNESS: Pt is a 38 y/o lady with no significant past medical history who presented to [facility] c/o abdominal pain and shortness of breath since this am. Per pt, abdominal pain is a 5-6/10 in pain severity. Pain does not radiate. Pain is described as constant not strong. Pt has not tried any medications for relief. Endorses nausea but denies any vomiting. Pt denies any similar symptoms in the past. Recently had a at our hospital approximately 3 weeks ago without any complications. Furthermore, pt reportedly was involved in a verbal argument last night. Pt denies any chest pain, sob, or vomiting. PMh Denies Social Hx- Denies tobacco use. Social Drinker SurgHx- Denies ER course was notable for: (1) RUQ U/S--> Large Stone in Gallbladder. Thickening of wall as well. No CBD dilation . Fatty liver (2) CTA Chest--> No P.E Allergies No Known Allergies Allergy (Verified 10/09/18 12:29) HOME MEDICATIONS: Home Medications Medication Instructions Recorded NK [No Known Home Medication] 08/12/18 REVIEW OF SYSTEMS CONSTITUTIONAL: Absent: fever, chills, diaphoresis, generalized weakness, malaise, loss of appetite, weight change HEENT: Absent: rhinorrhea, nasal congestion, throat pain, throat swelling, difficulty swallowing, mouth swelling, ear pain, eye pain, visual changes CARDIOVASCULAR: Absent: chest pain, syncope, palpitations, irregular heart rate, lightheadedness , peripheral edema RESPIRATORY: Absent: cough, shortness of breath, dyspnea with exertion, orthopnea, wheezing, stridor, hemoptysis GASTROINTESTINAL: PRESENT: abdominal pain, , nausea GENITOURINARY: Absent: dysuria, frequency, urgency, hesitancy, hematuria, flank pain, genital pain MUSCULOSKELETAL: Absent: myalgia, arthralgia, joint swelling, back pain, neck pain SKIN: Absent: rash, itching, pallor HEMATOLOGIC/IMMUNOLOGIC: Absent: easy bleeding, easy bruising, lymphadenopathy, frequent infections ENDOCRINE: Absent: unexplained weight gain, unexplained weight loss, heat intolerance, cold intolerance NEUROLOGIC: Absent: headache, focal weakness or paresthesias, dizziness, unsteady gait, seizure, mental status changes, bladder or bowel incontinence PSYCHIATRIC: Absent: anxiety, depression, suicidal or homicidal ideation, hallucinations. PHYSICAL EXAMINATION Vital Signs - 24 hr 12/03/18 12/03/18 14:11 14:15 Temperature 98.8 F 98.2 F Pulse Rate 112 H Respiratory 18 Rate Blood Pressure 130/78 O2 Sat by Pulse 100 Oximetry (%) GENERAL: NAD HEAD: Atraumatic/Normocephalic EYES: No sclera incterus. EOMI EARS, NOSE, THROAT: MMM NECK: Normal range of motion, supple without lymphadenopathy, JVD, or masses. LUNGS: CTAB HEART:RRR Nl S1S2 ABDOMEN: No guarding or rigidity. + Epigastric tenderness. BS Hypoactive. Mueller 's sign NEGATIVE MUSCULOSKELETAL: FROM UPPER EXTREMITIES: 2+ pulses, warm, well-perfused. No cyanosis. No clubbing. No peripheral edema. LOWER EXTREMITIES: No CCE NEUROLOGICAL: Cranial nerves II-XII intact. Normal speech. Normal gait. PSYCHIATRIC: Cooperative. Good eye contact. Appropriate mood and affect. SKIN: Warm, dry, normal turgor, no rashes or lesions noted, normal capillary refill. Laboratory Results - last 24 hr 12/03/18 12/03/18 12/03/18 15:03 15:03 15:03 WBC 6.7 RBC 4.59 Hgb 11.8 Hct 35.5 D MCV 77.3 L MCH 25.7 MCHC 33.3 RDW 14.4 Plt Count 317 D MPV 9.1 Absolute Neuts (auto) 4.5 Neutrophils % 66.6 Lymphocytes % 24.1 Monocytes % 7.7 Eosinophils % 1.3 Basophils % 0.3 Nucleated RBC % 0 PT with INR INR PTT (Actin FS) Sodium 142 Potassium 3.7 Chloride 109 H Carbon Dioxide 23 Anion Gap 9 BUN 4 L Creatinine 0.8 Creat Clearance w eGFR 80.71 Random Glucose 115 H Calcium 8.1 L Total Bilirubin 0.3 AST 32 ALT 51 Alkaline Phosphatase 129 H Troponin I < 0.02 Total Protein 7.8 Albumin 3.8 Lipase 131 Blood Type Antibody Screen 12/03/18 12/03/18 15:03 15:03 WBC RBC Hgb Hct MCV MCH MCHC RDW Plt Count MPV Absolute Neuts (auto) Neutrophils % Lymphocytes % Monocytes % Eosinophils % Basophils % Nucleated RBC % PT with INR 10.50 INR 0.89 PTT (Actin FS) 32.9 Sodium Potassium Chloride Carbon Dioxide Anion Gap BUN Creatinine Creat Clearance w eGFR Random Glucose Calcium Total Bilirubin AST ALT Alkaline Phosphatase Troponin I Total Protein Albumin Lipase Blood Type O POSITIVE Antibody Screen Negative ASSESSMENT/PLAN: Pt is a 38 y/o lady with no significant past medical history who presented to [facility] c/o abdominal pain and shortness of breath since this am. #Abdominal Pain 2/2 Biliary Colic -RUQ U/S--> Gallbladder Stone. No CBD Dilation. No pericholecystic fluid. Recommend HIDA to assess for Acute Cholecystitis - Will order HIDA Scan - Dr Ochoa contacted by ED. Will assess pt in am. Possible Lap Chasity in am. -NPO after Midnight -Type and screen, PTT, PT/INR -CBC,CMP in am -AST/ALT WNL. ALK PHOS elevated. Will order GGT to confirm elevated AP not due to bone etiology. -Morphine 2 mg Q6H PRN for pain. Tylenol PRN as well. To not exceed more than 4G in 24 hours # Microcytic Anemia -MCV 70s -Will order Iron Studies #FEN LR@75cc/hr Monitor Electrolytes NPO #DVT ppx SCDs, EAM #Dispo Med-Surg Visit type - Emergency Visit Emergency Visit: Yes ED Registration Date: 12/03/18 Care time: The patient presented to the Emergency Department on the above date and was hospitalized for further evaluation of their emergent condition. - New Patient This patient is new to me today: Yes Date on this admission: 12/03/18 - Critical Care Critical Care patient: No
[2018-12-03] MEDS ORDERED: ACETAMINOPHEN 500 MG TABLET (FP) PO PRN (20:30)
[2018-12-03] MEDS ORDERED: SODIUM CHLORIDE 1,000 ML IV SCH (22:30)
[2018-12-03 22:45] VITALS: BMI 34.0
[2018-12-03] MEDS: LACTATED RINGERS SOLUTION 1,000 ML/1,000 ML INFUS.BAG IV SCH (23:38)
[2018-12-04 07:24] LABS: BASO % 0.6 % (0-2.0); EOS % 2.3 % (0-4.5); HEMATOCRIT 31.8 % (32.4-45.2); HEMOGLOBIN 10.6 GM/dL (10.7-15.3); LYMPH % 38.9 % (8-40); MCH 25.5 pg (25.7-33.7); MCHC 33.3 g/dl (32.0-36.0); MEAN CELL VOLUME 76.6 fl (80-96); MEAN PLT VOLUME 8.9 fl (7.5-11.1); MONO % 8.1 % (3.8-10.2); NEUT % 50.1 % (42.8-82.8); PLATELET COUNT 278 K/MM3 (134-434); RBC 4.15 M/mm3 (3.60-5.2); RDW 14.4 % (11.6-15.6); WHITE BLOOD COUNT 5.6 K/mm3 (4.0-10.0)
[2018-12-04 07:42] LABS: INR 0.97 (0.83-1.09); PROTHROMBIN TIME (PATIENT) 11.4 SEC (9.7-13.0)
[2018-12-04 07:45] LABS: ACTIVATED PTT 30.8 SECONDS (25.2-36.5)
[2018-12-04 07:46] LABS: ALK PHOS 119 U/L (45-117); ANION GAP 7 MMOL/L (8-16); BILIRUBIN,TOTAL 0.8 mg/dL (0.2-1); BLOOD UREA NITROGEN 5 mg/dL (7-18); CALCIUM 8.1 mg/dL (8.5-10.1); CHLORIDE 109 mmol/L (98-107); CO2 27 mmol/L (21-32); CREATININE 0.7 mg/dL (0.55-1.3); GLUCOSE,RANDOM 90 mg/dL (74-106); MAGNESIUM 2.2 mg/dL (1.8-2.4); PHOSPHOROUS 3.1 mg/dL (2.5-4.9); SGOT/AST 26 U/L (15-37); SGPT/ALT 41 U/L (13-61); SODIUM 143 mmol/L (136-145); TOT PROT 6.5 g/dl (6.4-8.2)
[2018-12-04 08:22] LABS: GAMMA GLUTAMYL TRANSPEPTIDASE 50 U/L (5-85)
--- NOTE | 2018-12-04 09:53 | EKG ---
Test Reason : Blood Pressure : / mmHG Vent. Rate : 088 BPM Atrial Rate : 088 BPM P-R Int : 134 ms QRS Dur : 072 ms QT Int : 388 ms P-R-T Axes : 051 021 033 degrees QTc Int : 469 ms POOR DATA QUALITY, INTERPRETATION MAY BE ADVERSELY AFFECTED NORMAL SINUS RHYTHM POSSIBLE LEFT ATRIAL ENLARGEMENT BORDERLINE ECG WHEN COMPARED WITH ECG OF 12-AUG-2018 23:35, QT HAS LENGTHENED Confirmed by ANTONIA CARLSON, ALETA ([id number]) on 12/04/2018 9:53:11 AM Referred By: Confirmed By:ALETA KNIGHT MD
--- NOTE | 2018-12-04 09:58 | CONSULT ---
- Consultation REQUESTING PROVIDER: CONSULT REQUEST: We have been asked to surgically evaluate this patient for ( biliary colic). PCP:Peter Hart MD HISTORY OF PRESENT ILLNESS: 38 y/o F w/ no significant PMHx admitted with abdominal pain and sob. Pt reports she began having abdominal pain and sob yesterday morning. Pain is located in the epigastric region with no radiation, is a 5-6/10 in severity and is accompanied by nausea, no vomiting. Pain worsened throughout the morning and pt presented to ED for evaluation. In ED pt had a CTA chest for r/o PE which was negative. Pt also had a gallbladder U/S which revealed a large stone and thickening of the gallbladder wall. Pt had a prior episode of biliary colic in July (during last ) at which time she was evaluated by Gi, sxs were attributed to GERD as they resolved with Mylanta. Surgery consulted for further evaluation. Of note, pt had a 3 weeks ago with no complications. PMHx: denies PSHx: denies Home Medications Medication Instructions Recorded NK [No Known Home Medication] 08/12/18 Allergies Allergy/AdvReac Type Severity Reaction Status Date / Time lentils Allergy Unknown Nausea Verified 12/04/18 02:21 REVIEW OF SYSTEMS: CONSTITUTIONAL: Absent: fever, chills CARDIOVASCULAR: + chest pain RESPIRATORY: Absent: cough GASTROINTESTINAL: +abdominal pain, + nausea, - vomiting, diarrhea PHYSICAL EXAM: GENERAL: Awake, alert, and fully oriented, in no acute distress. HEAD: Normal with no signs of trauma. LUNGS: Unlabored on RA, No accessory muscle use. ABDOMEN: Soft, Slight ttp in epigastric region. Nondistended, no guarding, no rebound. Vital Signs Temperature 98.9 F 12/04/18 04:03 Pulse Rate 76 12/04/18 04:03 Respiratory Rate 18 12/04/18 04:03 Blood Pressure 123/78 12/04/18 04:03 O2 Sat by Pulse Oximetry (%) 99 12/03/18 21:30 Lab Results WBC 5.6 K/mm3 (4.0-10.0) 12/04/18 06:45 RBC 4.15 M/mm3 (3.60-5.2) 12/04/18 06:45 Hgb 10.6 GM/dL (10.7-15.3) L 12/04/18 06:45 Hct 31.8 % (32.4-45.2) L 12/04/18 06:45 MCV 76.6 fl (80-96) L 12/04/18 06:45 MCHC 33.3 g/dl (32.0-36.0) 12/04/18 06:45 RDW 14.4 % (11.6-15.6) 12/04/18 06:45 Plt Count 278 K/MM3 (134-434) 12/04/18 06:45 Sodium 143 mmol/L (136-145) 12/04/18 06:45 Potassium 4.0 mmol/L (3.5-5.1) 12/04/18 06:45 Chloride 109 mmol/L (98-107) H 12/04/18 06:45 Carbon Dioxide 27 mmol/L (21-32) 12/04/18 06:45 Anion Gap 7 MMOL/L (8-16) L 12/04/18 06:45 BUN 5 mg/dL (7-18) L 12/04/18 06:45 Creatinine 0.7 mg/dL (0.55-1.3) 12/04/18 06:45 Random Glucose 90 mg/dL (74-106) 12/04/18 06:45 Calcium 8.1 mg/dL (8.5-10.1) L 12/04/18 06:45 Blood Type O POSITIVE 12/03/18 15:03 Antibody Screen Negative 12/03/18 15:03 INR 0.97 (0.83-1.09) 12/04/18 06:45 CTA chest 12/03: Normal ct scan of the chest with no evidence of pulmonary embolism or acute pathology. U/S Abdomen Limited 12/03: The gallbladder is normal in sie and does contain a large gallstone measuring approximately 3.2cm. There is no evidence of intra or extrahepatic biliary duct dilatation. Hepatomegaly with diffuse fatty infiltration of the liver. A/P: 38 y/o F w/ no significant PMHx admitted with abdominal pain and sob, pt found to have a large gallstone on U/S. Afebrile, VSS, no leukocytosis. Plan for OR this afternoon for lap olaf with Dr Ochoa Keep pt NPO Labs, ekg appreciated Consent per attending pt seen and examined with attending Dr cOhoa
[2018-12-04] MEDS: LACTATED RINGERS SOLUTION 1,000 ML/1,000 ML INFUS.BAG IV SCH (11:30)
[2018-12-04] MEDS: MORPHINE SULFATE 2 MG/ML VIAL IVPUSH PRN ×2 (11:36→21:08)
--- NOTE | 2018-12-04 12:09 | PN ---
Teaching Attending Note Name of Resident: Lizandro Guerin ATTENDING PHYSICIAN STATEMENT I saw and evaluated the patient. I reviewed the resident's note and discussed the case with the resident. I agree with the resident's findings and plan as documented. SUBJECTIVE: Patient reports having abdominal pain and nausea. OBJECTIVE: Vital Signs Period Temp Pulse Resp BP Sys/Patel Pulse Ox Last 24 Hr 98.2 F-98.9 F 76-112 18-18 123-136/78-90 99-100 HEART: S1S2, RRR LUNGS: Clear ABDOMEN: Obese, soft, non-distended, (+) epigastric tenderness, normal BS EXTREMITIES: No edema Laboratory Results - last 24 hr 12/03/18 12/03/18 12/03/18 15:03 15:03 15:03 WBC 6.7 RBC 4.59 Hgb 11.8 Hct 35.5 D MCV 77.3 L MCH 25.7 MCHC 33.3 RDW 14.4 Plt Count 317 D MPV 9.1 Absolute Neuts (auto) 4.5 Neutrophils % 66.6 Lymphocytes % 24.1 Monocytes % 7.7 Eosinophils % 1.3 Basophils % 0.3 Nucleated RBC % 0 PT with INR INR PTT (Actin FS) Sodium 142 Potassium 3.7 Chloride 109 H Carbon Dioxide 23 Anion Gap 9 BUN 4 L Creatinine 0.8 Creat Clearance w eGFR 80.71 Random Glucose 115 H Calcium 8.1 L Phosphorus Magnesium Ferritin Total Bilirubin 0.3 GGT AST 32 ALT 51 Alkaline Phosphatase 129 H Troponin I < 0.02 Total Protein 7.8 Albumin 3.8 Lipase 131 Urine Color Urine Appearance Urine pH Ur Specific [place]inger Urine Protein Urine Glucose (UA) Urine Ketones Urine Blood Urine Nitrite Urine Bilirubin Urine Urobilinogen Ur Leukocyte Esterase Urine WBC (Auto) Urine RBC (Auto) Urine Casts (Auto) U Epithel Cells (Auto) Urine Bacteria (Auto) Blood Type Antibody Screen 12/03/18 12/03/18 12/03/18 15:03 15:03 19:52 WBC RBC Hgb Hct MCV MCH MCHC RDW Plt Count MPV Absolute Neuts (auto) Neutrophils % Lymphocytes % Monocytes % Eosinophils % Basophils % Nucleated RBC % PT with INR 10.50 INR 0.89 PTT (Actin FS) 32.9 Sodium Potassium Chloride Carbon Dioxide Anion Gap BUN Creatinine Creat Clearance w eGFR Random Glucose Calcium Phosphorus Magnesium Ferritin Total Bilirubin GGT AST ALT Alkaline Phosphatase Troponin I Total Protein Albumin Lipase Urine Color Yellow Urine Appearance Cloudy Urine pH 6.0 Ur Specific [place]inger 1.041 H Urine Protein Negative Urine Glucose (UA) 3+ H Urine Ketones Negative Urine Blood Negative Urine Nitrite Negative Urine Bilirubin Negative Urine Urobilinogen 0.2 Ur Leukocyte Esterase Negative Urine WBC (Auto) none seen Urine RBC (Auto) none seen Urine Casts (Auto) none seen U Epithel Cells (Auto) none seen Urine Bacteria (Auto) none seen Blood Type O POSITIVE Antibody Screen Negative 12/04/18 12/04/18 12/04/18 06:45 06:45 06:45 WBC 5.6 RBC 4.15 Hgb 10.6 L Hct 31.8 L MCV 76.6 L MCH 25.5 L MCHC 33.3 RDW 14.4 Plt Count 278 MPV 8.9 Absolute Neuts (auto) 2.8 Neutrophils % 50.1 D Lymphocytes % 38.9 D Monocytes % 8.1 Eosinophils % 2.3 Basophils % 0.6 Nucleated RBC % 0 PT with INR 11.40 INR 0.97 PTT (Actin FS) 30.8 Sodium 143 Potassium 4.0 Chloride 109 H Carbon Dioxide 27 Anion Gap 7 L BUN 5 L Creatinine 0.7 Creat Clearance w eGFR 94.16 Random Glucose 90 Calcium 8.1 L Phosphorus 3.1 Magnesium 2.2 Ferritin Total Bilirubin 0.8 GGT 50 AST 26 ALT 41 Alkaline Phosphatase 119 H Troponin I Total Protein 6.5 Albumin 3.0 L Lipase Urine Color Urine Appearance Urine pH Ur Specific [place] Urine Protein Urine Glucose (UA) Urine Ketones Urine Blood Urine Nitrite Urine Bilirubin Urine Urobilinogen Ur Leukocyte Esterase Urine WBC (Auto) Urine RBC (Auto) Urine Casts (Auto) U Epithel Cells (Auto) Urine Bacteria (Auto) Blood Type Antibody Screen 12/04/18 06:45 WBC RBC Hgb Hct MCV MCH MCHC RDW Plt Count MPV Absolute Neuts (auto) Neutrophils % Lymphocytes % Monocytes % Eosinophils % Basophils % Nucleated RBC % PT with INR INR PTT (Actin FS) Sodium Potassium Chloride Carbon Dioxide Anion Gap BUN Creatinine Creat Clearance w eGFR Random Glucose Calcium Phosphorus Magnesium Ferritin 10.0 Total Bilirubin GGT AST ALT Alkaline Phosphatase Troponin I Total Protein Albumin Lipase Urine Color Urine Appearance Urine pH Ur Specific [place] Urine Protein Urine Glucose (UA) Urine Ketones Urine Blood Urine Nitrite Urine Bilirubin Urine Urobilinogen Ur Leukocyte Esterase Urine WBC (Auto) Urine RBC (Auto) Urine Casts (Auto) U Epithel Cells (Auto) Urine Bacteria (Auto) Blood Type Antibody Screen Current Medications Generic Name Dose Route Start Last Admin Trade Name Helen PRN Reason Stop Dose Admin Acetaminophen 500 mg 12/03/18 20:30 Tylenol - PO Q6H PRN PAIN LEVEL 4 - 6 Lactated Ringer's 1,000 ml in 1,000 mls @ 100 mls/hr 12/03/18 22:45 12/04/18 11:30 Lactated Ringers Solution IV 100 mls/hr ASDIR MELODY Administration Morphine Sulfate 2 mg 12/03/18 20:30 12/04/18 11:36 Morphine Sulfate IVPUSH 2 mg Q6H PRN Administration PAIN LEVEL 7 - 10 ASSESSMENT AND PLAN: This is a 38 year old woman with no significant medical history who presented to the ED with abdominal pain and shortness of breath. 1. Abdominal pain likely secondary to symptomatic cholelithiasis - HIDA scan pending - Possible laparoscopic cholecystectomy today 2. Anemia, microcytic - Ferritin 10 - Iron, TIBC, iron sat pending
--- NOTE | 2018-12-04 12:58 | PN ---
Physical Exam: SUBJECTIVE: Patient seen and examined at bedside this morning. She endorses minimal abdominal pain, with nausea. She denies subjective fevers, chills, shortness of breath, chest pain, palpitations, vomiting, diarrhea. OBJECTIVE: Vital Signs Period Temp Pulse Resp BP Sys/Patel Pulse Ox Last 24 Hr 98.2 F-98.9 F 76-112 18-18 123-136/78-90 99-100 GENERAL: The patient is awake, alert, and fully oriented, in no acute distress. HEAD: Normocephalic, atraumatic. EYES: PERRL, extraocular movements intact, sclera anicteric, conjunctiva clear. ENT: Oropharynx clear, without erythema or exudates. Moist mucous membranes. NECK: Trachea midline, full range of motion. Supple without lymphadenopathy. LUNGS: Breath sounds equal, clear to auscultation bilaterally, no wheezes, no crackles. No accessory muscle use. HEART: Regular rate and rhythm, S1, S2 without murmur, rub or gallop. ABDOMEN: Soft, nondistended. Tender to deep palpation at right and left upper quadrants. No rebound tenderness, no guarding. Negaive Mueller's sign. Normoactive bowel sounds x4 quadrants. no hepatosplenomegaly palpated or percussed. EXTREMITIES: 2+ radial, dorsalis pedis pulses bilaterally. Warm, well-perfused. No lower extremity edema bilaterally. NEUROLOGICAL: Cranial nerves II through XII grossly intact. Normal speech. No gross focal deficits. PSYCH: Normal mood, normal affect upon my encounter. SKIN: Warm, dry. Laboratory Results - last 24 hr 12/03/18 12/03/18 12/03/18 15:03 15:03 15:03 WBC 6.7 RBC 4.59 Hgb 11.8 Hct 35.5 D MCV 77.3 L MCH 25.7 MCHC 33.3 RDW 14.4 Plt Count 317 D MPV 9.1 Absolute Neuts (auto) 4.5 Neutrophils % 66.6 Lymphocytes % 24.1 Monocytes % 7.7 Eosinophils % 1.3 Basophils % 0.3 Nucleated RBC % 0 PT with INR INR PTT (Actin FS) Sodium 142 Potassium 3.7 Chloride 109 H Carbon Dioxide 23 Anion Gap 9 BUN 4 L Creatinine 0.8 Creat Clearance w eGFR 80.71 Random Glucose 115 H Calcium 8.1 L Phosphorus Magnesium Ferritin Total Bilirubin 0.3 GGT AST 32 ALT 51 Alkaline Phosphatase 129 H Troponin I < 0.02 Total Protein 7.8 Albumin 3.8 Lipase 131 Urine Color Urine Appearance Urine pH Ur Specific [place] Urine Protein Urine Glucose (UA) Urine Ketones Urine Blood Urine Nitrite Urine Bilirubin Urine Urobilinogen Ur Leukocyte Esterase Urine WBC (Auto) Urine RBC (Auto) Urine Casts (Auto) U Epithel Cells (Auto) Urine Bacteria (Auto) Blood Type Antibody Screen 12/03/18 12/03/18 12/03/18 15:03 15:03 19:52 WBC RBC Hgb Hct MCV MCH MCHC RDW Plt Count MPV Absolute Neuts (auto) Neutrophils % Lymphocytes % Monocytes % Eosinophils % Basophils % Nucleated RBC % PT with INR 10.50 INR 0.89 PTT (Actin FS) 32.9 Sodium Potassium Chloride Carbon Dioxide Anion Gap BUN Creatinine Creat Clearance w eGFR Random Glucose Calcium Phosphorus Magnesium Ferritin Total Bilirubin GGT AST ALT Alkaline Phosphatase Troponin I Total Protein Albumin Lipase Urine Color Yellow Urine Appearance Cloudy Urine pH 6.0 Ur Specific [place] 1.041 H Urine Protein Negative Urine Glucose (UA) 3+ H Urine Ketones Negative Urine Blood Negative Urine Nitrite Negative Urine Bilirubin Negative Urine Urobilinogen 0.2 Ur Leukocyte Esterase Negative Urine WBC (Auto) none seen Urine RBC (Auto) none seen Urine Casts (Auto) none seen U Epithel Cells (Auto) none seen Urine Bacteria (Auto) none seen Blood Type O POSITIVE Antibody Screen Negative 12/04/18 12/04/18 12/04/18 06:45 06:45 06:45 WBC 5.6 RBC 4.15 Hgb 10.6 L Hct 31.8 L MCV 76.6 L MCH 25.5 L MCHC 33.3 RDW 14.4 Plt Count 278 MPV 8.9 Absolute Neuts (auto) 2.8 Neutrophils % 50.1 D Lymphocytes % 38.9 D Monocytes % 8.1 Eosinophils % 2.3 Basophils % 0.6 Nucleated RBC % 0 PT with INR 11.40 INR 0.97 PTT (Actin FS) 30.8 Sodium 143 Potassium 4.0 Chloride 109 H Carbon Dioxide 27 Anion Gap 7 L BUN 5 L Creatinine 0.7 Creat Clearance w eGFR 94.16 Random Glucose 90 Calcium 8.1 L Phosphorus 3.1 Magnesium 2.2 Ferritin Total Bilirubin 0.8 GGT 50 AST 26 ALT 41 Alkaline Phosphatase 119 H Troponin I Total Protein 6.5 Albumin 3.0 L Lipase Urine Color Urine Appearance Urine pH Ur Specific [place] Urine Protein Urine Glucose (UA) Urine Ketones Urine Blood Urine Nitrite Urine Bilirubin Urine Urobilinogen Ur Leukocyte Esterase Urine WBC (Auto) Urine RBC (Auto) Urine Casts (Auto) U Epithel Cells (Auto) Urine Bacteria (Auto) Blood Type Antibody Screen 12/04/18 06:45 WBC RBC Hgb Hct MCV MCH MCHC RDW Plt Count MPV Absolute Neuts (auto) Neutrophils % Lymphocytes % Monocytes % Eosinophils % Basophils % Nucleated RBC % PT with INR INR PTT (Actin FS) Sodium Potassium Chloride Carbon Dioxide Anion Gap BUN Creatinine Creat Clearance w eGFR Random Glucose Calcium Phosphorus Magnesium Ferritin 10.0 Total Bilirubin GGT AST ALT Alkaline Phosphatase Troponin I Total Protein Albumin Lipase Urine Color Urine Appearance Urine pH Ur Specific [place] Urine Protein Urine Glucose (UA) Urine Ketones Urine Blood Urine Nitrite Urine Bilirubin Urine Urobilinogen Ur Leukocyte Esterase Urine WBC (Auto) Urine RBC (Auto) Urine Casts (Auto) U Epithel Cells (Auto) Urine Bacteria (Auto) Blood Type Antibody Screen Active Medications Generic Name Dose Route Start Last Admin Trade Name Freq PRN Reason Stop Dose Admin Acetaminophen 500 mg 12/03/18 20:30 Tylenol - PO Q6H PRN PAIN LEVEL 4 - 6 Lactated Ringer's 1,000 ml in 1,000 mls @ 100 mls/hr 12/03/18 22:45 12/04/18 11:30 Lactated Ringers Solution IV 100 mls/hr ASDIR MELODY Administration Morphine Sulfate 2 mg 12/03/18 20:30 12/04/18 11:36 Morphine Sulfate IVPUSH 2 mg Q6H PRN Administration PAIN LEVEL 7 - 10 ASSESSMENT/PLAN: Patient is a 38 year old female with no significant medical history presents with complaint of abdominal pain, ongoing for the past two days. Biliary colic, likely secondary to acute cholelithisis -Right upper quadrant ultrasound shows cholelithiasis (3.2cm). Hepatomegaly, with diffuse fatty infiltration noted. -Lipase 131 -General surgery consult (Dr. Ochoa) appreciated. Patient is for laparoscopic cholecystectomy today. -Follow HIDA scan -NPO in anticipation of surgical procedure today. -Will follow surgical recommendations postoperatively Microcytic anemia -Hb 10.6, Hct 31.8. MCV 76.6 -Follow Fe, Ferritin, TIBC FEN -IV Lactated Ringer's at 100mL/ hour -Within normal limits. Follow CMP -NPO in anticipation of surgical procedure today Prophylaxis -Heparin held in anticipation of surgical procedure. Disposition -Continue care in medical- surgical floor. Visit type - Emergency Visit Emergency Visit: Yes ED Registration Date: 12/03/18 Care time: The patient presented to the Emergency Department on the above date and was hospitalized for further evaluation of their emergent condition. - New Patient This patient is new to me today: Yes Date on this admission: 12/04/18 - Critical Care Critical Care patient: No - Discharge Referral Referred to [facility] No
[2018-12-04] MEDS ORDERED: SUCCINYLCHOLINE CHLORIDE 200 MG/10 ML VIAL ONE (17:12)
[2018-12-04] MEDS ORDERED: PROPOFOL 20 ML ONE ×2 (17:12)
[2018-12-04] MEDS ORDERED: ROCURONIUM BROMIDE 50 MG/5 ML VIAL ONE (17:12)
[2018-12-04] MEDS ORDERED: fentaNYL CITRATE 250 MCG/5 ML VIAL ONE (17:12)
[2018-12-04] MEDS ORDERED: MIDAZOLAM HCL 2 MG/2 ML SINGLE DOSE VIAL ONE (17:13)
[2018-12-04] MEDS ORDERED: ceFAZolin SODIUM 1 GM VIAL IVPB ONE (17:44)
[2018-12-04] MEDS ORDERED: DEXAMETHASONE SOD PHOSPHATE 4 MG/1 ML VIAL ONE (17:49)
[2018-12-04] MEDS ORDERED: KETOROLAC TROMETHAMINE 30 MG/1 ML VIAL ONE (17:49)
[2018-12-04] MEDS ORDERED: ceFAZolin SODIUM 1 GM VIAL ONE (17:49)
[2018-12-04] MEDS ORDERED: BUPIVACAINE HCL/PF 0.25% (2.5MG/ML) 10 ML VIAL ONE (17:52)
[2018-12-04] MEDS ORDERED: GLYCOPYRROLATE 0.2 MG/1 ML VIAL ONE (18:59)
[2018-12-04] MEDS ORDERED: NEOSTIGMINE METHYLSULFATE 0.5 MG/ML - 10 ML MDV ONE (18:59)
[2018-12-04] MEDS ORDERED: LIDOCAINE HCL/PF 2% SDV 5ML VIAL ONE (19:14)
--- NOTE | 2018-12-04 19:22 | SURG ---
Surgery Ethylene Oxide Panelboard Operator Note Ethylene Oxide Panelboard Operator: Yung Dwyer PA-C Date of Service: 12/04/18 Diagnosis: acute cholecystitis Procedure: Laproscopic cholecystitis I was present for the entirety of the operative procedure. For further detail, please refer to operative report. Visit type - Case Type Case Type: ED Admission - Emergency Emergency Visit: Yes ED Registration Date: 12/03/18 Care time: The patient presented to the Emergency Department on the above date and was hospitalized for further evaluation of their emergent condition. - New patient This patient is new to me today: Yes Date on this admission: 12/04/18 - Critical Care Critical Care patient: No
[2018-12-04] MEDS ORDERED: oxyCODONE HCL 5 MG TABLET PO PRN (19:37)
[2018-12-04] MEDS ORDERED: ONDANSETRON 4 MG/2 ML VIAL IVPUSH PRN (19:37)
[2018-12-04] MEDS ORDERED: PROMETHAZINE HCL 25 MG/1 ML VIAL IVPUSH PRN (19:37)
[2018-12-05] MEDS: oxyCODONE HCL 5 MG TABLET PO PRN ×2 (01:29→12:40)
[2018-12-05] MEDS: LACTATED RINGERS SOLUTION 1,000 ML/1,000 ML INFUS.BAG IV SCH (04:12)
[2018-12-05 07:53] LABS: HEMATOCRIT 32.3 % (32.4-45.2); HEMOGLOBIN 10.7 GM/dL (10.7-15.3); MCH 25.5 pg (25.7-33.7); MEAN CELL VOLUME 77.1 fl (80-96); MEAN PLT VOLUME 9.2 fl (7.5-11.1); PLATELET COUNT 293 K/MM3 (134-434); RBC 4.19 M/mm3 (3.60-5.2); RDW 14.6 % (11.6-15.6); WHITE BLOOD COUNT 7.2 K/mm3 (4.0-10.0)
[2018-12-05 08:13] LABS: ALBUMIN 2.8 g/dl (3.4-5.0); ALK PHOS 115 U/L (45-117); ANION GAP 8 MMOL/L (8-16); BILIRUBIN,TOTAL 0.7 mg/dL (0.2-1); BLOOD UREA NITROGEN 7 mg/dL (7-18); CALCIUM 8.5 mg/dL (8.5-10.1); CHLORIDE 109 mmol/L (98-107); CO2 25 mmol/L (21-32); CREATININE 0.7 mg/dL (0.55-1.3); GLUCOSE,RANDOM 105 mg/dL (74-106); MAGNESIUM 1.8 mg/dL (1.8-2.4); POTASSIUM 4.2 mmol/L (3.5-5.1); SGOT/AST 37 U/L (15-37); SGPT/ALT 50 U/L (13-61); SODIUM 142 mmol/L (136-145); TOT PROT 6.3 g/dl (6.4-8.2)
--- NOTE | 2018-12-05 08:43 | PN ---
Progress Note (short form) - Note Progress Note: POD 1, s/p lap olaf Pt seen and examined. States she is doing "okay". Has some pain in abdomen with movement. Tolerated clears. Has been oob to the restroom. Denies cp/sob, n/v/d. Vital Signs Temp 99.3 F 12/05/18 05:58 Pulse 72 12/05/18 05:58 Resp 18 12/05/18 05:58 BP 105/60 12/05/18 05:58 Pulse Ox 99 12/04/18 21:30 Intake & Output 12/04/18 12/04/18 12/05/18 11:59 23:59 11:59 Intake Total 700 1700 700 Balance 700 1700 700 Intake: IV 700 1700 700 SL 700 1000 700 Oral 0 0 Other: Voiding Method Toilet Toilet # Unmeasured Voids Void 1 1 Bowel Movement No No CBC, BMP 12/05/18 06:45 12/05/18 06:45 Gen: awake, alert, nad Resp: Unlabored Abdo: soft, +TTP around incisions (as expected). Steri-strips in place, c/d/i, no erythema or drainage. A/P: 38 y/o F w/ no significant PMHx admitted with abdominal pain and sob, found to have acute cholecystitis, now POD 1, s/p lap olaf. -Advance to regular diet at lunch -Pain control -Bowel regimen -OOB as tolerated -Remainder of plan per medical team d/w attending Dr Ochoa
[2018-12-05 13:32] VITALS: BP 131/82; PULSE 77; TEMP 98
--- NOTE | 2018-12-05 13:34 | DS ---
Physical Exam: SUBJECTIVE: Patient seen and examined at bedside this morning. She is POD#1 s/p laparascopic appendectomy. Patient is tolerating full diet, without abdominal pain, nausea, or vomiting. She is urinating and passing flatus. Patient denies subjective fevers, chills, shortness of breath, chest pain, palpitations, vomiting, diarrhea. OBJECTIVE: Vital Signs Period Temp Pulse Resp BP Sys/Patel Pulse Ox Last 24 Hr 97.8 F-998.9 F 64-100 14-20 105-141/60-85 98-100 PHYSICAL EXAM GENERAL: The patient is awake, alert, and fully oriented, in no acute distress. HEAD: Normocephalic, atraumatic. EYES: PERRL, extraocular movements intact, sclera anicteric, conjunctiva clear. ENT: Oropharynx clear, without erythema or exudates. Moist mucous membranes. NECK: Trachea midline, full range of motion. Supple without lymphadenopathy. LUNGS: Breath sounds equal, clear to auscultation bilaterally, no wheezes, no crackles. No accessory muscle use. HEART: Regular rate and rhythm, S1, S2 without murmur, rub or gallop. ABDOMEN: Soft, nondistended. Tender to deep palpation at right and left upper quadrants. No rebound tenderness, no guarding. Negaive Mueller's sign. Normoactive bowel sounds x4 quadrants. no hepatosplenomegaly palpated or percussed. EXTREMITIES: 2+ radial, dorsalis pedis pulses bilaterally. Warm, well-perfused. No lower extremity edema bilaterally. NEUROLOGICAL: Cranial nerves II through XII grossly intact. Normal speech. No gross focal deficits. PSYCH: Normal mood, normal affect upon my encounter. SKIN: Warm, dry. Surgical sites clean, dry, nondraining, not- bleeding. LABS Laboratory Results - last 24 hr 12/05/18 12/05/18 06:45 06:45 WBC 7.2 RBC 4.19 Hgb 10.7 Hct 32.3 L MCV 77.1 L MCH 25.5 L MCHC 33.0 RDW 14.6 Plt Count 293 MPV 9.2 Sodium 142 Potassium 4.2 Chloride 109 H Carbon Dioxide 25 Anion Gap 8 BUN 7 Creatinine 0.7 Creat Clearance w eGFR 94.16 Random Glucose 105 Calcium 8.5 Phosphorus 4.0 Magnesium 1.8 Total Bilirubin 0.7 AST 37 ALT 50 Alkaline Phosphatase 115 Total Protein 6.3 L Albumin 2.8 L HOSPITAL COURSE: Date of Admission:12/03/18 Date of Discharge: 12/05/18 Patient is a 38 year old female with no significant medical history presents with complaint of right upper quadrant abdominal pain, ongoing for two days prior to admission. Right upper quadrant ultrasound upon admission showed cholelithiasis (3.2cm). Hepatomegaly, with diffuse fatty infiltration noted. HIDA scan showed no obstructive cholelithiasis. Patient was evaluated by general surgery and underwent laparoscopic cholecystectomy. Patient tolerated procedure well. She passed urine and flatus, and tolerated regular diet. Of note , patient was noted to have microcytic anemia during hospitalization, without signs of acute blood loss. Hemoglobin remained stable postoperatively. Patient discharged with iron sulfate supplements. To follow up with primary care physician ([facility] referral provided), general surgery, and gastroenterology (for further anemia follow up). Minutes to complete discharge: 35 Discharge Summary Reason For Visit: CHOLELITHIASIS Current Active Problems Cholelithiasis (Acute) Condition: Stable - Instructions Diet, Activity, Other Instructions: You were admitted to the hospital with abdominal pain. Your ultrasound showed stones in your gallbladder. You were evaluated by the general surgeon, and had an operation to remove your gallbladder (laparoscopic cholecystectomy). You are being discharged home. Your blood count was noted to be low. You will begin taking Iron supplements 325mg twice a day. Discuss this new medication with your primary care physician. Follow up with your primary care physician within two- three days after discharge. A referral to [facility] has been provided. Follow up with general surgeon (Dr. Ochoa) within one week of discharge. A referral has been provided. Further, follow up with saddle stitcher Dr. Gardner within one- two weeks of discharge for anemia follow up. Return to the nearest Emergency Department if you experience any worsening symptoms, subjective fevers, chills, shortness of breath, chest pain, palpitations, abdominal pain, nausea, vomiting. Please see Dr. Ochoa discharge instructions below: Dr. Ochoa Discharge Instructions Dear [facility], Post Operative Instructions Physical activity Resume your normal everyday activity as tolerated no heavy lifting or exercise until seen by your surgeon. You may walk unlimited amounts of and climb stairs. You may resume driving the car when you feel safe and comfortable behind the wheel. Wound care If you have a bandage, leave it on, and keep dry for 48 - 72 hours. After that time discard the outer bandage. If there are tapes on the skin under the outer bandage, leave them in place. They will peel off in the next 7 to 10 days. Do Not peel them off. You may shower 2 days after surgery. If there are tapes present on the skin, they can get wet. Diet There are no dietary restrictions. Eat healthy, high-fiber foods. Drink 6 to 8 glasses of liquid each day. This will assist in keeping your bowels are regular. Pain management You may take Tylenol or acetaminophen or Ibuprofen (for example, Motrin, Advil etc.) Any pain prescription medication ordered should be taken as prescribed for moderate to severe pain. Call Dr. Ochoa for any of the following: Severe pain not relieved by medication Fever of 101 or higher Excessive bleeding or drainage on dressing Inability to urinate Call the office at [phone] for a post operative appointment in 7 - 10 days. Referrals: [facility] [place] [Provider Group] Chato Ochoa MD [Staff Physician] - Perez Gardner DO [Staff Physician] - Disposition: HOME - Home Medications Comprehensive Discharge Medication List: Ambulatory Orders NK [No Known Home Medication] 08/12/18 This patient is new to me today: No Emergency Visit: Yes ED Registration Date: 12/03/18 Care time: The patient presented to the Emergency Department on the above date and was hospitalized for further evaluation of their emergent condition. Critical Care patient: No - Discharge Referral Referred to [facility] Med P.C.: Yes Physician Referral: Dean Gardner DO (GI)
--- NOTE | 2018-12-05 13:42 | PN ---
Teaching Attending Note Name of Resident: Lizandro Guerin ATTENDING PHYSICIAN STATEMENT I saw and evaluated the patient. I reviewed the resident's note and discussed the case with the resident. I agree with the resident's findings and plan as documented. SUBJECTIVE: Some post-op abdominal pain/tenderness. no nausea, vomiting, fever, chills. tolerating clear liquids OBJECTIVE: Afebrile, Hemodynamically stable. Last Vital Signs Temp Pulse Resp BP Pulse Ox 98 F 77 20 131/82 98 12/05/18 13:30 12/05/18 13:30 12/05/18 13:30 12/05/18 13:30 12/05/18 09:00 HEENT - Atraumatic, Normocephalic Heart - S1, S2, RRR Lungs - clear to auscultation Abdomen - trochar sites clean, Mild RUQ/Epigastric tenderness. Soft. Bowel Sounds normal. Extremities - no edema, no calf tenderness. Laboratory Results - last 24 hr 12/05/18 12/05/18 06:45 06:45 WBC 7.2 RBC 4.19 Hgb 10.7 Hct 32.3 L MCV 77.1 L MCH 25.5 L MCHC 33.0 RDW 14.6 Plt Count 293 MPV 9.2 Sodium 142 Potassium 4.2 Chloride 109 H Carbon Dioxide 25 Anion Gap 8 BUN 7 Creatinine 0.7 Creat Clearance w eGFR 94.16 Random Glucose 105 Calcium 8.5 Phosphorus 4.0 Magnesium 1.8 Total Bilirubin 0.7 AST 37 ALT 50 Alkaline Phosphatase 115 Total Protein 6.3 L Albumin 2.8 L Current Medications Generic Name Dose Route Start Last Admin Trade Name Angelq PRN Reason Stop Dose Admin Acetaminophen 500 mg 12/03/18 20:30 Tylenol - PO Q6H PRN PAIN LEVEL 4 - 6 Lactated Ringer's 1,000 ml in 1,000 mls @ 100 mls/hr 12/03/18 22:45 12/05/18 04:12 Lactated Ringers Solution IV 100 mls/hr ASDIR MELODY Administration Morphine Sulfate 2 mg 12/03/18 20:30 12/04/18 21:08 Morphine Sulfate IVPUSH 2 mg Q6H PRN Administration PAIN LEVEL 7 - 10 Ondansetron HCl 4 mg 12/04/18 19:37 Zofran Injection IVPUSH Q6H PRN NAUSEA AND/OR VOMITING Oxycodone HCl 5 mg 12/04/18 19:37 Roxicodone - PO Q4H PRN PAIN LEVEL 1-5 Oxycodone HCl 10 mg 12/04/18 19:37 12/05/18 12:40 Roxicodone - PO 10 mg Q4H PRN Administration PAIN LEVEL 6-10 Promethazine HCl 12.5 mg 12/04/18 19:37 Phenergan Injection - IVPUSH Q6H PRN NAUSEA-FOR RESCUE AFTER 15 MIN ASSESSMENT AND PLAN: 38 year old female with no significant medical history who presented to the ED with abdominal pain, found to have cholelithiasis. 1. Abdominal pain secondary to biliary colic/symptomatic cholelithiasis POD 1 s/p lap cholecystectomy Afebrile, Hemodynamically Stable. Tolerating oral intake. Discussed with Dr. Ochoa - surgically cleared for discharge. 2. Iron Deficinecy Anemia Ferritin 10 Discharge with Fe supplementation. No evidence of acute blood loss. Out-patient GI referral for further work-up. Medically/Surgically stable for discharge with GI and Surgery follow up.
[2018-12-06 04:10] LABS: SERUM IRON SATURATION 23 % (15-55); TOTAL IRON BINDING CAPACITY 371 ug/dL (250-450); UIBC 286 ug/dL (131-425)
--- NOTE | 2018-12-06 11:08 | OP ---
DATE OF OPERATION: 12/04/2018 PREOPERATIVE DIAGNOSIS: Acute cholecystitis and cholelithiasis. POSTOPERATIVE DIAGNOSIS: Acute cholecystitis and cholelithiasis. PROCEDURE: Laparoscopy cholecystectomy. SURGEON: Chato Ochoa MD. BELLOWS FILLER: Yung Dwyer PA-C. ANESTHESIA: General. OPERATIVE FINDINGS: Acute cholecystitis and cholelithiasis. The rest of the findings were unremarkable. DESCRIPTION OF PROCEDURE: The patient was placed on the operating room table in supine position. After the induction of general anesthesia, the patient's abdomen was prepped with ChloraPrep and draped in sterile fashion. Time-out was taken and then pneumoperitoneum established above the umbilicus using a Veress needle. Once 15 mm of intra-abdominal pressure was obtained, a 5-mm port was placed at the umbilicus. Additional lateral 5-mm ports and a subxiphoid 12-mm port were placed and laparoscopy carried out, and the previously noted findings were observed. The gallbladder was placed on cephalad and lateral traction, and dissection was begun at the neck of the gallbladder where the peritoneum was opened medially and laterally using blunt and sharp dissection and electrocautery. Dissection continued in the triangle of Calot where the cystic duct was identified coursing from the neck of the gallbladder distally to the common bile duct. It was dissected proximally and distally for length. Similarly, the artery was similarly identified and dissected. A critical view of safety was taken, and then the cystic duct divided proximally and distally using Endo Bertha after it was clipped twice proximally and distally with large hemoclips. The artery was similarly clipped and divided. Hemostasis was checked for and noted to be good and then the gallbladder was removed from the liver bed in a retrograde fashion using electrocautery. Prior to removal from the edge of the liver, hemostasis was again verified and then the gallbladder removed from the edge of the liver, placed in an EndoCatch, and brought out through the subxiphoid port. Pneumoperitoneum was reestablished, hemostasis verified again, and then the 5-mm lateral and subxiphoid ports were removed under laparoscopic vision without evidence of bleeding from the port sites. The umbilical port was removed and the pneumoperitoneum evacuated. All port sites were infiltrated with 0.5% Marcaine and the skin edges closed with 4-0 Biosyn in a subcuticular and continuous fashion. Steri-Strips and Band-Aid dressings were placed and the procedure terminated at this point and the patient aroused from general anesthesia and transferred to the post anesthesia care unit in stable condition awake and alert. ESTIMATED BLOOD LOSS: 25 mL. REPLACEMENTS: Crystalloid. DRAINS: None. SPECIMENS: Gallbladder and contents to pathology. I, Chato Ochoa, was physically present in the operating room from the time the patient was placed on the operating room table until she was transferred to the post anesthesia care unit in my company. MD KYLIE Radford/[id number] MTDD
--- NOTE | 2018-12-07 11:41 | PATH ---
Surgical Pathology Report Patient Name: [facility] Med. Rec. #: [id number] /Age/Gender: 1980 (Age: 38) / F Account: [id number] Location: [facility] MED/SURG Taken: 12/04/2018 Received: 12/05/2018 Reported: 12/07/2018 Physicians: MD Karly Cruz M.D. Specimen(s) Received GALLBLADDER Clinical History Cholelithiasis Final Diagnosis GALLBLADDER, CHOLECYSTECTOMY: CHRONIC CHOLECYSTITIS, CHOLESTEROLOSIS, AND CHOLELITHIASIS. Electronically Signed Checo Kumar M.D. Gross Description Received in formalin, labeled "gallbladder," is a 9.0 x 3.2 x 3.2 cm. gallbladder with a 0.2 cm. in length portion of cystic duct attached. The outer surface is helms-medina and varies from smooth to shaggy. The lumen contains green, tenacious bile as well as 2 brown, irregular choleliths measuring 1.2 and 3.3 cm in greatest dimension. The mucosa is green and velvety with gold cholesterol stippling. The wall of the gallbladder ranges from 0.1-0.2 cm. in thickness. Undercutter sections are submitted in one cassette. 12/06/201812/06/2018
== END 2018-12-05 14:46 | disposition home or self-care (01) | DRG 263 ==
LOC: JER 14:03 → JERBED 19:12 → J7W 21:15
PROVIDERS: ADMIT Internal Medicine
PROC: 0FT44ZZ Resection of Gallbladder, Percutaneous Endoscopic Approach (ICD-10-PCS; principal; 2018-12-04 17:00)
DX: K80.00 Calculus of gallbladder with acute cholecystitis without obstruction (principal); R16.0 Hepatomegaly, not elsewhere classified; R73.9 Hyperglycemia, unspecified; D50.9 Iron deficiency anemia, unspecified
CPT/HCPCS: 36415; 71275-TC; 76705-TC; 78226-TC; 80053; 81003; 82728; 82977; 83540; 83550; 83690; 83735; 84100; 84484; 85025; 85027; 85610; 85730; 86850; 86900; 86901; 87086; 88304-TC; 93005; 93010; 94010; 94760; 99284-25; A9537; J0131; J7030

== ENCOUNTER 2020-02-04 12:55 | Emergency (ER) | payer OTHER ==
[2020-02-04 13:13] VITALS: BMI 30.4
[2020-02-04 13:45] LABS: BASO % 0.3 % (0-2.0); EOS % 0.9 % (0-4.5); HEMATOCRIT 34.6 % (32.4-45.2); HEMOGLOBIN 11.3 GM/dL (10.7-15.3); LYMPH % 20.4 % (8-40); MCHC 32.5 g/dl (32.0-36.0); MEAN CELL VOLUME 76.9 fl (80-96); MEAN PLT VOLUME 9.6 fl (7.5-11.1); MONO % 7.3 % (3.8-10.2); NEUT % 71.1 % (42.8-82.8); PLATELET COUNT 200 K/MM3 (134-434); RDW 22.5 % (11.6-15.6); WHITE BLOOD COUNT 5.6 K/mm3 (4.0-10.0)
[2020-02-04] MEDS ORDERED: ONDANSETRON *ODT* 4 MG TABLET SL ONE (13:54)
[2020-02-04] MEDS ORDERED: SODIUM CHLORIDE 0.9% 500 ML INFUS.BAG IV ONE (13:54)
[2020-02-04 14:08] LABS: ALBUMIN 4.2 g/dl (3.4-5.0); BILIRUBIN,TOTAL 0.7 mg/dL (0.2-1); BLOOD UREA NITROGEN 14.8 mg/dL (7-18); CALCIUM 9.1 mg/dL (8.5-10.1); CREATININE 0.9 mg/dL (0.55-1.3); MAGNESIUM 2.3 mg/dL (1.8-2.4); POTASSIUM 3.8 mmol/L (3.5-5.1); TOT PROT 7.9 g/dl (6.4-8.2)
[2020-02-04] MEDS ORDERED: ONDANSETRON *ODT* 4 MG TABLET ONE (14:12)
[2020-02-04 15:03] LABS: HCG,QUALITATIVE URINE Negative
[2020-02-04 15:23] LABS: EPI CELLS 12 /uL (0-25.1); HYALINE CASTS 0 /uL (0-3.1); PH,URINE 6.5 (5.0-8.0); URINE APPEARANCE CLEAR; URINE BACTERIA 210 /uL (0-1359); URINE BILIRUBIN NEGATIVE (NEGATIVE); URINE COLOR YELLOW; URINE GLUCOSE (UA) NEGATIVE (NEGATIVE); URINE KETONE NEGATIVE (NEGATIVE); URINE LEUK ESTERASE TRACE (NEGATIVE); URINE NITRITE NEGATIVE (NEGATIVE); URINE PROTEIN NEGATIVE (NEGATIVE); URINE RBC 10 /uL (0-23.9); URINE UROBILINOGEN 0.2 mg/dL (0.2-1.0); URINE WBC 12 /uL (0-25.8)
[2020-02-04 15:43] VITALS: BP 108/65; PULSE 66; TEMP 98.5
[2020-02-04 15:53] LABS: PLATELET ESTIMATE ADEQUATE
[2020-02-04 15:54] LABS: OVALOCYTE 1+
== END 2020-02-04 16:23 | disposition home or self-care (01) ==
LOC: JER 12:55
DX: K52.9 Noninfective gastroenteritis and colitis, unspecified (principal); R10.84 Generalized abdominal pain
CPT/HCPCS: 36415; 80053; 81003; 83690; 83735; 84703; 85025; 87086; 99284-25; Q0162

== ENCOUNTER 2020-03-04 12:38 | Emergency (ER) | payer OTHER ==
[2020-03-04] MEDS ORDERED: ONDANSETRON 4 MG/2 ML VIAL IVPUSH ONE ×2 (12:43→15:02)
--- NOTE | 2020-03-04 12:44 | PDOC ---
Rapid Medical Evaluation Chief Complaint: Nausea/Vomiting Time Seen by Provider: 03/04/20 12:41 Medical Evaluation: Allergies Allergy/AdvReac Type Severity Reaction Status Date / Time lentils Allergy Unknown Nausea Verified 02/04/20 13:08 03/04/20 12:43 CC: nausea since this am, started on abx for bacteria in stomach 2 weeks ago, no vomiting , fver, diarrhea Exam: VSS, no abd tenderness Plan: labs urine , zofran 03/04/20 12:44 Discharge Disposition - Diagnosis Nausea - Referrals - Patient Instructions - Post Discharge Activity
[2020-03-04] MEDS ORDERED: SODIUM CHLORIDE 0.9% 500 ML INFUS.BAG IV ONE (12:59)
[2020-03-04 13:03] VITALS: TEMP 98.9; BMI 30.8
[2020-03-04 13:16] LABS: BASO % 0.4 % (0-2.0); EOS % 1.7 % (0-4.5); HEMATOCRIT 37.8 % (32.4-45.2); HEMOGLOBIN 12.7 GM/dL (10.7-15.3); MCH 26.3 pg (25.7-33.7); MCHC 33.6 g/dl (32.0-36.0); MEAN CELL VOLUME 78.2 fl (80-96); MONO % 6.9 % (3.8-10.2); PLATELET COUNT 230 K/MM3 (134-434); RBC 4.83 M/mm3 (3.60-5.2); RDW 17.2 % (11.6-15.6); WHITE BLOOD COUNT 4.5 K/mm3 (4.0-10.0)
--- NOTE | 2020-03-04 13:19 | PDOC ---
History of Present Illness - General Chief Complaint: Nausea/Vomiting Stated Complaint: VOMITING/NAUSEA Time Seen by Provider: 03/04/20 12:41 History Source: Patient Exam Limitations: No Limitations - History of Present Illness Initial Comments: 03/04/20 13:17 39-year-old history of fatty liver, gastritis presents complaining of nausea since this morning which has resolved without intervention. Evaluated by me February 03 for similar complaint. She followed up with her PMD 3 weeks ago, informed that she had "stomach bacteria " and was treated with 2-week course of clarithromycin, amoxicillin, lansoprazole. Denies fever, chills, vomiting, diarrhea, back pain, chest pain, shortness of breath, urinary symptoms or any other complaints. Patient has been tolerating p.o. Has not been able to follow-up with GI. ROS: GENERAL/CONSTITUTIONAL: No fever, chills, weakness, dizziness HEAD, EYES, EARS, NOSE AND THROAT: No changes in vision, No ear pain or discharge, No sore throat CARDIOVASCULAR: No chest pain RESPIRATORY: No shortness of breath or cough GASTROINTESTINAL: nausea, denies vomiting, diarrhea or constipation GENITOURINARY: No dysuria MUSCULOSKELETAL: No neck or back pain SKIN: No rash NEUROLOGIC: No headache, vertigo, loss of consciousness, or loss of sensation PE: GENERAL: well-appearing, NAD HEAD: NCAT EYES: Pupils equal, round and reactive to light, sclera anicteric, conjunctiva clear ENT: pharynx: no erythema, no exudate, uvula midline NECK: supple CHEST: nontender RESP: clear, no w/r/r CARDIO: rrr, no m/g/r ABD: +BS, soft, nontender, non distended BACK: no midline spinal ttp, no CVAT EXTREMITIES: Normal range of motion, no edema NEUROLOGICAL: Normal speech, normal gait SKIN: Warm, Dry Is this a multiple visit Asthma Patient?: No Past History - Medical History Allergies/Adverse Reactions: Allergies Allergy/AdvReac Type Severity Reaction Status Date / Time lentils Allergy Unknown Nausea Verified 03/04/20 12:44 Home Medications: Ambulatory Orders Famotidine [Pepcid -] 20 mg PO BID #14 tablet 08/23/19 Ondansetron [Zofran *Odt*] 4 mg SL BID PRN #14 od.tablet 08/23/19 Ondansetron [Zofran -] 4 mg PO BID #10 tablet 03/04/20 Anemia: Yes Asthma: No Cancer: No Cardiac Disorders: No COPD: No Diabetes: No HTN: No Hypercholesterolemia: Yes Seizures: No Thyroid Disease: No - Surgical History Cholecystectomy: Yes - Reproductive History (#): 10 Para: 7 Spontaneous : 3 - Psycho-Social/Smoking History Smoking Status: No Smoking History: Never smoked Have you smoked in the past 12 months: No Information on smoking cessation initiated: No - Substance Abuse Hx (Audit-C & DAST Scrn) How often the patient has a drink containing alcohol: Never Score: In Men: 4 or > Positive; In Women: 3 or > Positive: 0 Screen Result (Pos requires Nsg. Audit-10AR): Negative In the last yr the pt used illegal drug/Rx for NonMed reason: No Score: Yes response is considered Positive: 0 Screen Result (Positive result requires Nsg. DAST-10): Negative *Physical Exam - Vital Signs Last Vital Signs Temp Pulse Resp BP Pulse Ox 98.9 F 89 19 110/63 100 03/04/20 12:42 03/04/20 12:42 03/04/20 12:42 03/04/20 12:42 03/04/20 12:42 ED Treatment Course - LABORATORY CBC & Chemistry Diagram: 03/04/20 13:06 03/04/20 13:06 - Medications Given in the ED: ED Medications Discontinued Medications Generic Name Dose Route Start Last Admin Trade Name Freq PRN Reason Stop Dose Admin Ondansetron HCl 4 mg 03/04/20 12:43 03/04/20 13:00 Zofran Injection IVPUSH 03/04/20 12:44 4 mg ONCE ONE Administration Sodium Chloride 1,000 ml 03/04/20 12:59 03/04/20 13:05 Normal Saline - IV 03/04/20 13:00 1,000 ml ONCE ONE Administration Medical Decision Making - Medical Decision Making 03/04/20 13:23 39-year-old history of fatty liver, gastritis presents complaining of nausea since this morning which has resolved without intervention. Evaluated by me February 03 for similar complaint. She followed up with her PMD 3 weeks ago, informed that she had "stomach bacteria " and was treated with 2-week course of clarithromycin, amoxicillin, lansoprazole. Denies fever, chills, vomiting, diarrhea, back pain, chest pain, shortness of breath, urinary symptoms or any other complaints. Patient has been tolerating p.o. Has not been able to follow-up with GI. Labs, UA, urine IV Zofran, IV fluids Will reassess 03/04/20 16:46 Discussed lab and UA results with patient Feels slightly better after IV fluids, antiemetic and GI cocktail Prescription for ondansetron sent to [facility] pharmacy Advised patient to follow-up with GI this week Return precautions discussed Discharge - Discharge Information Problems reviewed: Yes Clinical Impression/Diagnosis: Nausea Condition: Stable Disposition: HOME - Admission No - Follow up/Referral Referrals: ON STAFF,NOT [Primary Care Provider] - Yifan Gray MD [Staff Physician] - Wiliam Diaz MD [Staff Physician] - - Patient Discharge Instructions Additional Instructions: Take ondansetron 4 mg 1 tablet every 8 hours as needed Follow-up with GI within 1 week return to ED if abdominal distention, worsening nausea, vomiting, diarrhea, fever, chills - Post Discharge Activity
[2020-03-04 13:55] LABS: ALBUMIN 4.2 g/dl (3.4-5.0); BILIRUBIN,TOTAL 0.6 mg/dL (0.2-1); BLOOD UREA NITROGEN 7.4 mg/dL (7-18); CALCIUM 9.2 mg/dL (8.5-10.1); CREATININE 0.7 mg/dL (0.55-1.3); MAGNESIUM 2.4 mg/dL (1.8-2.4); POTASSIUM 4.2 mmol/L (3.5-5.1); TOT PROT 8.3 g/dl (6.4-8.2)
[2020-03-04 14:26] LABS: EPI CELLS 5 /uL (0-25.1); HYALINE CASTS 0 /uL (0-3.1); URINE APPEARANCE CLEAR; URINE BACTERIA 13 /uL (0-1359); URINE BILIRUBIN NEGATIVE (NEGATIVE); URINE COLOR YELLOW; URINE GLUCOSE (UA) NEGATIVE (NEGATIVE); URINE KETONE NEGATIVE (NEGATIVE); URINE LEUK ESTERASE NEGATIVE (NEGATIVE); URINE NITRITE NEGATIVE (NEGATIVE); URINE PROTEIN NEGATIVE (NEGATIVE); URINE RBC 106 /uL (0-23.9); URINE UROBILINOGEN 0.2 mg/dL (0.2-1.0); URINE WBC 4 /uL (0-25.8)
[2020-03-04 14:27] LABS: HCG,QUALITATIVE URINE Negative
[2020-03-04] MEDS ORDERED: FAMOTIDINE 20 MG/50 ML IVPB 20 MG/50 ML MG IVPB ONE ×2 (15:57→16:01)
[2020-03-04] MEDS ORDERED: MAG HYDROX/AL HYDROX/SIMETH 30 ML UNIT-DOSE CUP PO ONE (15:58)
[2020-03-04] MEDS ORDERED: MAG HYDROX/AL HYDROX/SIMETH 30 ML UNIT-DOSE CUP ONE (16:00)
[2020-03-04 16:58] VITALS: BP 120/78; PULSE 79
== END 2020-03-04 16:58 | disposition home or self-care (01) ==
LOC: JER 12:38 → SUPCPDRO 12:38 → JER 16:58
PROC: 3E033GC Introduction of Other Therapeutic Substance into Peripheral Vein, Percutaneous Approach (ICD-10-PCS; principal; 2020-03-04)
DX: R11.0 Nausea (principal)
CPT/HCPCS: 36415; 80053; 81003; 83690; 83735; 84703; 85025; 96365; 96375; 96376; 99284-25

== ENCOUNTER 2020-03-07 19:58 | Emergency (ER) | payer OTHER ==
--- NOTE | 2020-03-07 20:05 | PDOC ---
Rapid Medical Evaluation Chief Complaint: Lightheaded Time Seen by Provider: 03/07/20 20:00 Medical Evaluation: Allergies Allergy/AdvReac Type Severity Reaction Status Date / Time lentils Allergy Unknown Nausea Verified 03/04/20 12:44 03/07/20 20:01 Pt presents for dizziness, nausea for the past 3 days. Was recently evaluated in the ED on 03/04 for similar symptoms. States she hasn't been eating because of the nausea. Denies vomiting. Exam: NAD, gait intact Orders: defer to provider Pt to proceed to the ER for further evaluation Discharge Disposition - Diagnosis Lightheaded - Referrals - Patient Instructions - Post Discharge Activity
[2020-03-07 20:06] VITALS: BP 134/72; PULSE 81; TEMP 98.2; BMI 63.7
--- NOTE | 2020-03-07 21:34 | PDOC ---
Documentation entered by Fifi Perez SCRIBE, acting as scribe for Lynn Escalante MD. Lynn Escalante MD: This documentation has been prepared by the Chris easley Brenda, SCRIBE, under my direction and personally reviewed by me in its entirety. I confirm that the documentation accurately reflects all work, treatment, procedures, and medical decision making performed by me. Attending Attestation - Resident Resident Name: Hawk Jewell - ED Attending Attestation I have performed the following: I have examined & evaluated the patient, The case was reviewed & discussed with the resident, I agree w/resident's findings & plan, Exceptions are as noted - HPI HPI: 03/07/20 20:56 The patient is a 39 year old female, [place] speaking with a significant PMH of GERD, anemia, gastritis, and chronic abdominal pain who presents to the emergency department with 3 days of lightheadedness, in the setting of 3 months of upper abdominal discomfort, nausea, and low PO intake of food and liquids. Patient reports she was here 3 days ago and was diagnosed with gastritis. Patient notes that her symptoms grew worse, so she returned to the ED. Reports low PO intake due to nausea and low fluid intake as well. The patient denies chest pain. Denies fever, chills, vomiting, diarrhea and constipation. Denies dysuria, frequency, urgency and hematuria. Allergies: NKA Social history: No reported hx of tobacco use, alcohol use or illicit drug use. - Physicial Exam PE: 03/07/20 21:06 GENERAL: nontoxic-appearing, A/Ox4, no distress, answers questions appropriately, pleasant, [place]-speaking HEENT: PERRLA, EOMI, a bit dry mucous membranes NECK/BACK: no midline ttp, no spinal stepoff or deformity, no hematoma, full ROM, neck supple CARDIOVASCULAR: regular rate/rhythm, no MGR, strong peripheral pulses, capillary refill <2 seconds, extremities wwp, no edema LUNGS/RESPIRATORY: no respiratory distress, CTAB GI/ABDOMEN: symmetric [id number], normoactive BS, soft, no ttp, no midline pulsatile masses : no CVA tenderness MSK/EXTREMITIES: no muscle atrophy, no acute deformity SKIN: warm and dry, no pallor, no jaundice, no rash, no pathologic-appearing bruising, no skin breakdown, no cuts, no lesions NEUROLOGICAL: GCS 15, CN II-XII grossly intact, 5/5 strength proximally and distally, no facial droop - Medical Decision Making 03/07/20 21:28 [id number] with chronic epigastric discomfort, nausea, and low appetite who p/w lightheadedness. Initial Vital Signs Temp Pulse Resp BP Pulse Ox 98.2 F 81 18 134/72 100 03/07/20 20:00 03/07/20 20:00 03/07/20 20:00 03/07/20 20:00 03/07/20 20:00 DDX IBNLT: Most likely dehydration, electrolyte derangement or anemia. Unlikely to be any neurogenic or cardiogenic emergency cause of lightheadedness. Unlikely presyncope although will do EKG to assess. W/U ordered: Labs, EKG TX ordered: IVF, Reglan EKG: Reviewed; results as noted in ECG Review section. Laboratory Tests 03/07/20 03/07/20 03/07/20 21:26 21:26 21:27 WBC 4.9 RBC 4.39 Hgb 11.5 Hct 34.4 MCV 78.5 L MCH 26.2 MCHC 33.4 RDW 16.6 H Plt Count 210 MPV 9.1 Sodium 142 Potassium 3.8 Chloride 108 H Carbon Dioxide 28 Anion Gap 7 L BUN 15.3 Creatinine 0.8 Est GFR (CKD-EPI)AfAm 108.39 Est GFR (CKD-EPI)NonAf 93.52 Random Glucose 88 Calcium 9.0 Total Bilirubin 0.5 AST 13 L ALT 36 Alkaline Phosphatase 96 Total Protein 7.8 Albumin 3.9 Urine HCG, Qual Negative 03/07/20 22:18 Patient states she feels much better. Workup is not concerning for emergency- level pathology at this time. The Pt is appropriate for discharge with close outpatient follow up with PCP and GI (she has both, has appointment already schedule with PCP for this coming Mon/Tues. She is comfortable with this plan. Specific return precautions are discussed and they will come back to the ER if necessary. Heart Score/ECG Review #1 03/07/20 21:34 Sinus rhythm, rate 64, normal axis and intervals, no ischemic ST-T changes Discharge - Discharge Information Problems reviewed: Yes Clinical Impression/Diagnosis: Lightheaded Condition: Stable Disposition: HOME - Admission No - Follow up/Referral Referrals: Chevy Garnett MD [Staff Physician] - ON STAFF,NOT [Non Staff, Medical] - - Patient Discharge Instructions Patient Printed Discharge Instructions: DI for Dizziness-Nonvertigo Additional Instructions: You were seen in the ER for lightheadedness. We did lab work on the blood, and an electrocardiogram, and we did not find any concerning abnormalities. All the symptoms had resolved by the end of your ER visit. After our assessment, we do not believe you are having a medical emergency at this time, and we believe you are safe to go home. Please stay well hydrated and eat a balanced diet. Follow up with your regular doctor early this coming week, and also follow up with your plate cleaner. Call their clinic as soon as possible, tell them you were seen in the ER for passing out, and tell them you need an appointment. If you have any new or worsening symptoms, especially an episode of fainting, palpitations, chest discomfort, shortness of breath, sweats, nausea, or other symptoms, please come back to the ER at any time (24 hours a day). If you are having severe or life threatening symptoms, or symptoms that make it unsafe to drive or have someone drive you, please call 911. Te vieron en la luis de emergencias por aturdimiento. Hicimos anlisis de laboratorio en la yuriy y un electrocardiograma, y ??no encontramos ninguna anomala preocupante. Todos los sntomas se resolvieron al final de horowitz visita a la luis de emergencias. Despus de nuestra evaluacin, no creemos que est teniendo edyta emergencia mdica en jimmy momento, y creemos que es seguro regresar a horowitz hogar. Mantngase aurora hidratado y coma edyta dieta equilibrada. Denia un seguimiento con horowitz mdico de cabecera a principios de la prxima semana y tambin con horowitz gastroenterlogo. Llame a horowitz clnica lo antes posible, dgales que lo vieron en la luis de emergencias por desmayarse y dgales que necesita edyta ruba. Si tiene algn sntoma nuevo o que empeora, especialmente un episodio de desmayo, palpitaciones, molestias en el pecho, dificultad para respirar, sudoracin, nuseas u otros sntomas, regrese a la luis de emergencias en cualquier momento (24 horas al da). Si tiene sntomas graves o potencialmente mortales, o sntomas que hacen que sea peligroso conducir o que alguien lo conduzca, llame al 911. - Post Discharge Activity
--- NOTE | 2020-03-07 21:36 | PDOC ---
History of Present Illness - General Chief Complaint: Lightheaded Stated Complaint: DIZZY Time Seen by Provider: 03/07/20 20:00 - History of Present Illness Initial Comments: 03/07/20 21:37 39 F uzbek speaking with hx of anemia GERD, presented to the ED with worsening dizziness for the past 3 days. Patient came to the ED 3 days ago for gastritis. Two months ago, patient did an endoscopy which revealed gastritist. Patient end orsed the gastritist problem did get a bit better, but for the past 3 days, the dizziness and SOB got worse. In addition, she had increased sleepiness, and nausea. Denies vomitting, fever, chill, change of vision, chest pain. PMH: anemia, Gerd PSH: cholecystectomy Med: none Allergy: lentils SS: denies smoke, alcohol, drugs, LMP: last week, and heavy. ROS GENERAL/CONSTITUTIONAL: No fever or chills. No weakness. HEAD, EYES, EARS, NOSE AND THROAT: No change in vision. No ear pain or discha rge. No sore throat. CARDIOVASCULAR: No chest pain . Shortness of breath RESPIRATORY: No cough, wheezing, or hemoptysis. GASTROINTESTINAL: nausea, no vomiting, diarrhea or constipation. GENITOURINARY: No dysuria, frequency, or change in urination. MUSCULOSKELETAL: No joint or muscle swelling or pain. No neck or back pain. SKIN: No rash NEUROLOGIC: No headache, but vertigo, no loss of consciousness, or change in strength/sensation. ENDOCRINE: No increased thirst. No abnormal weight change HEMATOLOGIC/LYMPHATIC: anemia, no easy bleeding, or history of blood clots. ALLERGIC/IMMUNOLOGIC: No hives or skin allergy. PE GENERAL: Awake, alert, and fully oriented, in no acute distress HEAD: No signs of trauma, normocephalic, atraumatic EYES: PERRLA, EOMI, sclera anicteric, conjunctiva clear ENT: Auricles normal inspection, hearing grossly normal, nares patent, oropharynx clear without exudates. Moist mucosa NECK: Normal ROM, supple, no lymphadenopathy, JVD, or masses LUNGS: No distress, speaks full sentences, clear to auscultation bilaterally HEART: Regular rate and rhythm, normal S1 and S2, no murmurs, rubs or gallops, peripheral pulses normal and equal bilaterally. ABDOMEN: Soft, nontender, normoactive bowel sounds. No guarding, no rebound. No masses. Epigastric pain. EXTREMITIES : Normal inspection, Normal range of motion, no edema. No clubbing or cyanosis. NEUROLOGICAL: Cranial nerves II through XII grossly intact. Normal speech, normal gait, no focal sensorimotor deficits SKIN: Warm, Dry, normal turgor, no rashes or lesions noted Past History - Medical History Allergies/Adverse Reactions: Allergies Allergy/AdvReac Type Severity Reaction Status Date / Time lentils Allergy Unknown Nausea Verified 03/07/20 20:03 Home Medications: Ambulatory Orders Famotidine [Pepcid -] 20 mg PO BID #14 tablet 08/23/19 Ondansetron [Zofran -] 4 mg PO BID #10 tablet 03/04/20 Anemia: Yes Asthma: No Cancer: No Cardiac Disorders: No COPD: No Diabetes: No HTN: No Hypercholesterolemia: Yes Seizures: No Thyroid Disease: No - Surgical History Cholecystectomy: Yes - Reproductive History (#): 10 Para: 7 Spontaneous : 3 - Psycho-Social/Smoking History Smoking Status: No Smoking History: Never smoked Have you smoked in the past 12 months: No - Substance Abuse Hx (Audit-C & DAST Scrn) How often the patient has a drink containing alcohol: Never Score: In Men: 4 or > Positive; In Women: 3 or > Positive: 0 Screen Result (Pos requires Nsg. Audit-10AR): Negative *Physical Exam - Vital Signs Last Vital Signs Temp Pulse Resp BP Pulse Ox 98.2 F 81 18 134/72 100 03/07/20 20:00 03/07/20 20:00 03/07/20 20:00 03/07/20 20:00 03/07/20 20:00 ED Treatment Course - LABORATORY CBC & Chemistry Diagram: 03/07/20 21:26 03/07/20 21:26 Medical Decision Making - Medical Decision Making 03/07/20 21:43 39 F with hx of anemia, gerd presented to the ED for 3 days of worsening dizz iness, SOB. No unilat leg swelling, no hx of blood clot. EKG show sinus rhtyhm, reg rate 64, no ST changes suggesting sign of ischemic heart disease. Interpretation: normal EKG. 03/07/20 23:28 Lab come back negative. Patient is better with fluid and medication. Patient is reassessed and stable. patient is discharged home. Discharge - Discharge Information Problems reviewed: Yes Clinical Impression/Diagnosis: Lightheaded Condition: Stable Disposition: HOME - Follow up/Referral Referrals: Chevy Garnett MD [Staff Physician] - ON STAFF,NOT [Non Staff, Medical] - - Patient Discharge Instructions Patient Printed Discharge Instructions: DI for Dizziness-Nonvertigo Additional Instructions: You were seen in the ER for lightheadedness. We did lab work on the blood, and an electrocardiogram, and we did not find any concerning abnormalities. All the symptoms had resolved by the end of your ER visit. After our assessment, we do not believe you are having a medical emergency at this time, and we believe you are safe to go home. Please stay well hydrated and eat a balanced diet. Follow up with your regular doctor early this coming week, and also follow up with your central office frame wirer. Call their clinic as soon as possible, tell them you were seen in the ER for passing out, and tell them you need an appointment. If you have any new or worsening symptoms, especially an episode of fainting, palpitations, chest discomfort, shortness of breath, sweats, nausea, or other symptoms, please come back to the ER at any time (24 hours a day). If you are having severe or life threatening symptoms, or symptoms that make it unsafe to drive or have someone drive you, please call 911. Te vieron en la luis de emergencias por aturdimiento. Hicimos anlisis de laboratorio en la yuriy y un electrocardiograma, y ??no encontramos ninguna anomala preocupante. Todos los sntomas se resolvieron al final de horowitz visita a la luis de emergencias. Despus de nuestra evaluacin, no creemos que est teniendo edyta emergencia mdica en jimmy momento, y creemos que es seguro regresar a horowitz hogar. Mantngase aurora hidratado y coma edyta dieta equilibrada. Denia un seguimiento con horowitz mdico de cabecera a principios de la prxima semana y tambin con horowitz gastroenterlogo. Llame a horowitz clnica lo antes posible, dgales que lo vieron en la luis de emergencias por desmayarse y dgales que necesita edyta ruba. Si tiene algn sntoma nuevo o que empeora, especialmente un episodio de desmayo, palpitaciones, molestias en el pecho, dificultad para respirar, sudoracin, nuseas u otros sntomas, regrese a la luis de emergencias en cualquier momento (24 horas al da). Si tiene sntomas graves o potencialmente mortales, o sntomas que hacen que sea peligroso conducir o que alguien lo conduzca, llame al 911. - Post Discharge Activity
[2020-03-07 21:42] LABS: HEMATOCRIT 34.4 % (32.4-45.2); HEMOGLOBIN 11.5 GM/dL (10.7-15.3); MCH 26.2 pg (25.7-33.7); MCHC 33.4 g/dl (32.0-36.0); MEAN CELL VOLUME 78.5 fl (80-96); MEAN PLT VOLUME 9.1 fl (7.5-11.1); PLATELET COUNT 210 K/MM3 (134-434); RBC 4.39 M/mm3 (3.60-5.2); RDW 16.6 % (11.6-15.6); WHITE BLOOD COUNT 4.9 K/mm3 (4.0-10.0)
[2020-03-07 22:15] LABS: ALBUMIN 3.9 g/dl (3.4-5.0); BILIRUBIN,TOTAL 0.5 mg/dL (0.2-1); BLOOD UREA NITROGEN 15.3 mg/dL (7-18); CREATININE 0.8 mg/dL (0.55-1.3); POTASSIUM 3.8 mmol/L (3.5-5.1); TOT PROT 7.8 g/dl (6.4-8.2)
--- NOTE | 2020-03-09 17:34 | EKG ---
Test Reason : Blood Pressure : / mmHG Vent. Rate : 064 BPM Atrial Rate : 064 BPM P-R Int : 148 ms QRS Dur : 076 ms QT Int : 400 ms P-R-T Axes : 067 047 054 degrees QTc Int : 412 ms NORMAL SINUS RHYTHM CANNOT RULE OUT ANTERIOR INFARCT , AGE UNDETERMINED ABNORMAL ECG WHEN COMPARED WITH ECG OF 26-DEC-2019 23:21, NO SIGNIFICANT CHANGE WAS FOUND Confirmed by MD Kam, Austin ([id number]) on 03/09/2020 5:33:44 PM Referred By: Confirmed By:Austin Humphrey MD
== END 2020-03-07 22:35 | disposition home or self-care (01) ==
LOC: JER 19:58
DX: R42 Dizziness and giddiness (principal)
CPT/HCPCS: 36415; 80053; 84703; 85027; 93005; 93010; 99284-25

== ENCOUNTER 2020-05-30 06:06 | Emergency (ER) | payer OTHER ==
--- OUTSIDE RECORDS SUMMARY | 2020-05-30 06:34 | XMS ---
:1980 Author Organization [facility] Care Team Providers Name Role Phone PALLI VINO Dell Unavailable Unavailable Herman Unavailable MATI CARLSON Unavailable MATI CARLSON Unavailable ED STAFF PHYSICIAN Unavailable Unavailable OYEKOLA RETAIL SECURITY PROFESSIONAL Unavailable OYEKOLA RETAIL SECURITY PROFESSIONAL Unavailable OYEKOLA RETAIL SECURITY PROFESSIONAL Unavailable OYEKOLA RETAIL SECURITY PROFESSIONAL Unavailable AGYEPONG RETAIL SECURITY PROFESSIONAL Unavailable AGYEPONG RETAIL SECURITY PROFESSIONAL Unavailable EMERGENCY SERVICE, X Unavailable Unavailable PRIMO CARLSON Unavailable Amelmah Unavailable Unavailable Amelmah Unavailable Unavailable Amelmah Unavailable Unavailable Amelmah Unavailable Unavailable RENE ZAZUETA Unavailable Unavailable Perryton, MD Unavailable Unavailable Perryton, MD Unavailable Unavailable Perryton, MD Unavailable Unavailable Perryton, MD Unavailable Unavailable Perryton, MD Unavailable Unavailable Perryton, MD Unavailable Unavailable Perryton, MD Unavailable Unavailable Perryton, MD Unavailable Unavailable Perryton, MD Unavailable Unavailable Perryton, MD Unavailable Unavailable Perryton, MD Unavailable Unavailable Perryton, MD Unavailable Unavailable Zepeda Unavailable Re-disclosure Warning The records that you are about to access may contain information from federally- assisted alcohol or drug abuse programs. If such information is present, then the following federally mandated warning applies: This information has been disclosed to you from records protected by federal confidentiality rules (42 CFR part 2). The federal rules prohibit you from making any further disclosure of this information unless further disclosure is expressly permitted by the written consent of the person to whom it pertains or as otherwise permitted by 42 CFR part 2. A general authorization for the release of medical or other information is NOT sufficient for this purpose. The Federal rules restrict any use of the information to criminally investigate or prosecute any alcohol or drug abuse patient.The records that you are about to access may contain highly sensitive health information, the redisclosure of which is protected by Article 27-F of the [facility] Public Health law. If you continue you may haveaccess to information: Regarding HIV / AIDS; Provided by facilities licensed or operated by the [facility] Office of Mental Health; or Provided by the [facility] Office for People With Developmental Disabilities. If such information is present, then the following [facility] mandated warning applies: This information has been disclosed to you from confidential records which are protected by state law. State law prohibits you from making any further disclosure of this information without the specific written consent of the person to whom it pertains, or as otherwise permitted by law. Any unauthorized further disclosure in violation of state law may result in a fine or custodial sentence or both. A general authorization for the release of medical or other information is NOT sufficient authorization for further disclosure. Allergies and Adverse Reactions Type Description Substance Reaction Status Data Source(s ) Allergy to No Known Allergies No known REYMUNDO WISDOM ([place] substance allergies Juan Fredo riggins (situation) [facility] ) Allergy to No Known Allergies No known GREENW AY ([place] substance allergies [facility] [place] ) Allergy to No Known Allergies No known GREENW AY ([place] substance allergies [facility] [place] ) Allergy to No Known Allergies No known GREENW AY ([place] substance allergies [facility] [place] ) Allergy to No Known Allergies No known GREENW AY ([place] substance allergies [facility] [place] ) Allergy to No Known Allergies No known GREENW AY ([place] substance allergies [facility] [place] ) Allergy to No Known Allergies No known GREENW AY ([place] substance allergies [facility] [place] ) Allergy to No Known Allergies No known GREENW AY ([place] substance allergies [facility] ([facility] ) Allergy to No Known Allergies No known GREENW AY ([place] substance allergies [facility] [place] ) Allergy to No Known Allergies No known GREENW AY ([place] substance allergies [facility] [place] ) Allergy to No Known Allergies No known GREENW AY ([place] substance allergies [facility] ) Allergy to No Known Allergies No known GREENW AY ([place] substance allergies [facility] [place] ) Allergy to No Known Allergies No known GREENW AY ([place] substance allergies [facility] ([facility] ) Allergy to No Known Allergies No known GREENW AY ([place] substance allergies [facility] [place] ) Encounters Encounter Providers Location Date Indications Data Source(s ) Outpatient<td Attender: Yordy SARAI Becker ount ID="encounter Florencia Zepeda [facility] 02:11:0 Espinozahoo rafita onID0">*Phone Center 0 PM Health Cent er) *</td><td>Jose Guadalupe RAINES - will Katelyn</td><td 020 >Yordy 11:59:0 Community 0 PM Health EDT Center</td><t d>03/11/2020< /td><td></td> Outpatient<td Attender: Yordy SARAI (M ount ID[facility] 02[facility]0 Neighborhoo d onID1">OFFICE Center 0 PM Health Cent er) VISIT</td><td EDT - [facility] </td><td>Yo 03:36:1 nkers 4 PM Community EDT Health Center</td><t d>02/28/2020< /td><td></td> Outpatient<td Attender: Yordy SARAI (M ount ID="encounter Florencia Zepeda [facility] 01[facility] Neighborhoo d onID2">*Phone Center 0 PM Health Cent er) *</td><td>Jose Guadalupe EDT - will Zepeda</td><td 020 >Yordy 02:33:1 Community 2 PM Health EDT Center</td><t d>02/19/2020< /td><td></td> Outpatient<td Attender: Yordy SARAI (M ount ID="encounter TORI PRIMO [place] [id number] [address] [facility] 10:00:0 Neighborhoo d onID3">Regula Center 0 AM Health Cent er) r EDT - Sonogram</td> <td>TORI TILLMAN 04:38:3 MD</td><td>Yo 6 PM nkers EDT [facility]</td><t d>02/19/2020< /td><td></td> Outpatient<td Attender: Yordy SARAI (M ount ID="encounter TORI TILLMAN [facility] 020 [address] [facility] 09:30:0 Neighborhoo d onID4">TRANSV Center 0 AM Health Cent er) AGINAL EDT - SONO</td><td> TORI Mitchell MD</td><td>Yo 04:38:3 nkers 0 PM Community EDT Health Center</td><t d>02/19/2020< /td><td></td> Outpatient<td Attender: Yordy MIDDLESEX (M ount ID="[facility] [place] [facility] 02:[facility]:0 Neighborhoo d onID5">OFFICE Center 0 PM Health Cent er) VISIT</td><td EDT - >[facility] MD</td><td>Yo 01:58:2 nkers 5 PM Community EDT Health Center</td><t d>02/14/2020< /td><td></td> Outpatient<td Attender: Yordy AnemiaHelicobacter Pyl juan MIDDLESEX ([place] ID="encounter [facility] 020 (h. Pylori) [facility] Health 12:30:0 InfectionRenal Neighb orhood onID6">[facility]ICE [facility]IT</td><td EDT - Pylori (h. Pylori) >[facility] InfectionRenal [address]</td><td>Y 01:23:2 Pylori (h. Pylori) onkers 8 PM InfectionRenal Community [facility] Pylori (h. Pylori) Center</td><t InfectionRenal d>02/14/2020< CystOverweight /td><td><cont ent ID="encounter DiagnosisID6- 0">Renal Cyst</content >, <content ID="encounter DiagnosisID6- 1">Helicobact er Pylori (h. Pylori) Infection</co ntent>, <content ID="encounter DiagnosisID6- 2">Anemia</co ntent></td> Anemia Helicobacter Pylori (h. Pylori) Infectio n Renal Cyst Anemia Helicobacter Pylori (h. Pylori) Infectio n Renal Cyst Anemia Helicobacter Pylori (h. Pylori) Infectio n Renal Cyst Anemia Helicobacter Pylori (h. Pylori) Infectio n Renal Cyst Overweight Outpatient<td ID="encounterTypeDescriptionID7">OFFICE Attender: Yordy 02/05/2020 MenorrhagiaMenorrhagiaMenorrhagiaMenorrhagiaMenorrhagiaMenorrhagiaMenorrhagia SARAI VISIT</td><td>ABIMAEL BEARDEN MD</td><td>[facility] 02:30:00 PM ([facility] EDT - [facility]</td><td>02/05/2020</td><td><content Center 01/14 Health ID="encounterDiagnosisID7-0">Menorrhagia</content></td> 03:02:04 PM Center) EDT Menorrhagia Menorrhagia Menorrhagia Menorrhagia Menorrhagia Menorrhagia Menorrhagia Outpatient<td Attender: Yordy 02/05/2020 MIDDLESEX ID="encounterTypeDescriptionID8">[facility] 12:[facility] PM ([place] Sonogram</td><td>TORI TILLMAN MD Health EDT - [facility] </td><td>[facility] 02/05/2020 Health Center</td><td>02/05/2020</td><td></td> 04:51:5 8 PM Center) EDT Outpatient<td Attender: Yordy 02/04/2020 MIDDLESEX ID="encounterTypeDescriptionID9">*[facility] 04:14 :00 PM ([place] *</td><td>[facility] EDT - [facility] RETAIL SECURITY PROFESSIONAL</td><td>[facility] RETAIL SECURITY PROFESSIONAL Center 02/04/2020 Health Center</td><td>02/04/2020</td><td></td> 11:59:0 0 PM Center) EDT Outpatient<td Attender: Yordy 01/31/2020 R MIDDLESEX ID="[id number]">COMPLET [facility] 11:30 :00 AM i ([place] E PHYSICAL EXAM</td><td>[facility] EDT - s [facility] RETAIL SECURITY PROFESSIONAL</td><[facility]2020 [facility]</td><td>01/31/2020</td><td><conten 01:50 :55 PM : Center) t EDT D ID="[id number]">Hyperlipide e guera</content>, <content p ID="pdjmtknnfEdxgdrbejGB64-4">Anemia</con r tent>, <content e ID="nsskxqatsRjlqznsuuIC88-9">Routine s History and Physical</content>, <content s ID="xotaqetuxZpyfpyvruEA31-8">Abdominal i Pain</content>, <content o ID="cgxzxrfobWofrjwowtBM56-4">Obesity</co n ntent>, <content Q ID="bkddenyqwYgdjwchjiHG39-6">Questionnai u res Phq-9 Quick Depression Assessment e Panel</content>, <content s ID="nyoiwdrizQneqeviqrTH72-3">Risk: t Depression</content></td> i o n n a i r e s P h q - 9 Q u i c k D e p r e s s i o n A s s e s s m e n t P a n e l R o u t i n e H i s t o r y a n d P h y s i c a l A n e m i a H y p e r l i p i d e m i a R i s k : D e p r e s s i o n Q u e s t i o n n a i r e s P h q - 9 Q u i c k D e p r e s s i o n A s s e s s m e n t P a n e l R o u t i n e H i s t o r y a n d P h y s i c a l A n e m i a H y p e r l i p i d e m i a R i s k : D e p r e s s i o n Q u e s t i o n n a i r e s P h q - 9 Q u i c k D e p r e s s i o n A s s e s s m e n t P a n e l R o u t i n e H i s t o r y a n d P h y s i c a l A n e m i a H y p e r l i p i d e m i a R i s k : D e p r e s s i o n Q u e s t i o n n a i r e s P h q - 9 Q u i c k D e p r e s s i o n A s s e s s m e n t P a n e l R o u t i n e H i s t o r y a n d P h y s i c a l A n e m i a H y p e r l i p i d e m i a R i s k : D e p r e s s i o n Q u e s t i o n n a i r e s P h q - 9 Q u i c k D e p r e s s i o n A s s e s s m e n t P a n e l R o u t i n e H i s t o r y a n d P h y s i c a l A n e m i a H y p e r l i p i d e m i a R i s k : D e p r e s s i o n Q u e s t i o n n a i r e s P h q - 9 Q u i c k D e p r e s s i o n A s s e s s m e n t P a n e l R o u t i n e H i s t o r y a n d P h y s i c a l A n e m i a H y p e r l i p i d e m i a R i s k : D e p r e s s i o n Q u e s t i o n n a i r e s P h q - 9 Q u i c k D e p r e s s i o n A s s e s s m e n t P a n e l R o u t i n e H i s t o r y a n d P h y s i c a l A n e m i a H y p e r l i p i d e m i a R i s k : D e p r e s s i o n Q u e s t i o n n a i r e s P h q - 9 Q u i c k D e p r e s s i o n A s s e s s m e n t P a n e l R o u t i n e H i s t o r y a n d P h y s i c a l A n e m i a H y p e r l i p i d e m i a R i s k : D e p r e s s i o n Q u e s t i o n n a i r e s P h q - 9 Q u i c k D e p r e s s i o n A s s e s s m e n t P a n e l R o u t i n e H i s t o r y a n d P h y s i c a l A n e m i a H y p e r l i p i d e m i a R i s k : D e p r e s s i o n Q u e s t i o n n a i r e s P h q - 9 Q u i c k D e p r e s s i o n A s s e s s m e n t P a n e l R o u t i n e H i s t o r y a n d P h y s i c a l A n e m i a H y p e r l i p i d e m i a A b d o m i n a l P a i n A b d o m i n a l P a i n A b d o m i n a l P a i n A b d o m i n a l P a i n A b d o m i n a l P a i n A b d o m i n a l P a i n A b d o m i n a l P a i n A b d o m i n a l P a i n A b d o m i n a l P a i n A b d o m i n a l P a i n O b e s i t y O b e s i t y O b e s i t y O b e s i t y O b e s i t y O b e s i t y O b e s i t y O b e s i t y O b e s i t y O b e s i t y Risk: Depression Questionnaires Phq-9 Quick Depression As sessment Panel Routine History and Physical Anemia Hyperlipidemia Risk: Depression Questionnaires Phq-9 Quick Depression As sessment Panel Routine History and Physical Anemia Hyperlipidemia Risk: Depression Questionnaires Phq-9 Quick Depression As sessment Panel Routine History and Physical Anemia Hyperlipidemia Risk: Depression Questionnaires Phq-9 Quick Depression As sessment Panel Routine History and Physical Anemia Hyperlipidemia Risk: Depression Questionnaires Phq-9 Quick Depression As sessment Panel Routine History and Physical Anemia Hyperlipidemia Risk: Depression Questionnaires Phq-9 Quick Depression As sessment Panel Routine History and Physical Anemia Hyperlipidemia Risk: Depression Questionnaires Phq-9 Quick Depression As sessment Panel Routine History and Physical Anemia Hyperlipidemia Risk: Depression Questionnaires Phq-9 Quick Depression As sessment Panel Routine History and Physical Anemia Hyperlipidemia Risk: Depression Questionnaires Phq-9 Quick Depression As sessment Panel Routine History and Physical Anemia Hyperlipidemia Risk: Depression Questionnaires Phq-9 Quick Depression As sessment Panel Routine History and Physical Anemia Hyperlipidemia Abdominal Pain Abdominal Pain Abdominal Pain Abdominal Pain Abdominal Pain Abdominal Pain Abdominal Pain Abdominal Pain Abdominal Pain Abdominal Pain Obesity Obesity Obesity Obesity Obesity Obesity Obesity Obesity Obesity Obesity Outpatient Attender: Digestive Disease 01/11/2020 MEDENT (Digestive Prabha Mckeon & Nutrition 04:10:00 PM EDT Dis ease & Nutrition MD [facility]) Emergency Attender: PALLI H 12/29/2019 [facility] Gilestender: 08:35:00 AM EDT [facility] STAFF ED STAFF 12/29/2019 PHYSICIANAdmitter 01:45:00 PM EDT : PALLI DONALDO K Patient discharged. Outpatient Attender: Digestive 12/28/2019 MEDENT (Digest tate Prabha Disease & 03:20:00 PM EDT Disease & Rossy CARLSON Nutrition Nutrition [facility] ) Emergency Attender: 12/25/2019 ABDOMINAL PAIN [facility] MARBIN, 10:53:00 PM EDT [facility] JASONAttender: Care Corpo ration EMERGENCY SERVICE, XAdmitter: RENE ZAZUETA ABDOMINAL PAIN Emergency Attender: MARBIN, 12/25/2019 ABDOMINAL PAIN [facility] JASONAttender: 03:12:00 AM EDT [facility] Care EMERGENCY SERVICE, Corpor ation XAdmitter: RENE ZAZUETA ABDOMINAL PAIN Outpatient<td Attender: Yordy 11/14/2019 MIDDLESEX ID="[id number]">[Patient [facility] 11:2 5:00 AM (Kari Martinez Encounter]</td><td>[facility] EDT - [facility]</td><td>[facility] 2019 Health Center</td><td>11/14/2019</td><td></td> 11:59:0 0 PM Center) EDT [facility] 11/08[facility] eCW2 ([facility] 12:[facility]:00 [facility] [place] EDT [place] [employer]) [facility] [place] 10/25/2019 eCW2 ([facility] 12:00:00 [facility] [place] EDT [place] [employer] [facility]) [facility] [place] [facility] 10/22/2019 eCW2 ([facility] 12:00:00 [facility] [place] EDT [place] [employer]) Outpatient<td Attender: Yordy 07/03/2019 SARAI ID="[id number]">*No [facility] 02:58:00 PM (Kari Martinez Show*</td><td>Florencia Zepeda</td><td>[facility] Center 07/03/2019 Health Center</td><td>07/03/2019</td><td></td> 11:59:0 0 PM Center) EST Outpatient<td Attender: Yordy 05/25/2019 SARAI ID="[id number]">*OUTREACH [facility] 05: 22:00 PM (Kari Martinez *</td><td>[facility] EDT - [facility]</td><td>[facility] RETAIL SECURITY PROFESSIONAL Center 05/25/2019 Health Center</td><td>05/25/2019</td><td></td> 11:59:0 0 PM Center) EDT Outpatient<td Attender: Yordy 05/22/2019 SARAI ID="[id number]">EKG</td>< [facility] 02: 00:00 PM (Kari Martinez td>ETHAN THORNE MD</td><td>Yordy THORNE MD Health EDT - [facility] 05/22/2019 Health Center</td><td>05/22/2019</td><td></td> 02:10:1 5 PM Center) EDT Outpatient<td Attender: Yordy 05/22/2019 [facility] ID="[id number]">[facility] 11: 15:00 AM y (Kair Martinez td><td>[facility] RETAIL SECURITY PROFESSIONAL</td><td[facility] 05/22/2019 Health Center</td><td>05/22/2019</td><td><content 02:0 9:44 PM r Center) ID="[id number]">Obesity</cont EDT l ent>, <content i ID="sqcrwddbgArsrgoiihWN14-2">Fatigue</cont p ent>, <content i ID="pybixarpqGmuegblbiYV22-1">Hyperlipidemi d a</content></td> e m i a F a t i g u e H y p e r l i p i d e m i a F a t i g u e H y p e r l i p i d e m i a F a t i g u e H y p e r l i p i d e m i a F a t i g u e H y p e r l i p i d e m i a F a t i g u e H y p e r l i p i d e m i a F a t i g u e H y p e r l i p i d e m i a F a t i g u e H y p e r l i p i d e m i a F a t i g u e H y p e r l i p i d e m i a F a t i g u e H y p e r l i p i d e m i a F a t i g u e H y p e r l i p i d e m i a F a t i g u e H y p e r l i p i d e m i a F a t i g u e H y p e r l i p i d e m i a F a t i g u e H y p e r l i p i d e m i a F a t i g u e O b e s i t y O b e s i t y O b e s i t y O b e s i t y O b e s i t y O b e s i t y O b e s i t y O b e s i t y O b e s i t y O b e s i t y O b e s i t y O b e s i t y O b e s i t y O b e s i t y Hyperlipidemia Fatigue Hyperlipidemia Fatigue Hyperlipidemia Fatigue Hyperlipidemia Fatigue Hyperlipidemia Fatigue Hyperlipidemia Fatigue Hyperlipidemia Fatigue Hyperlipidemia Fatigue Hyperlipidemia Fatigue Hyperlipidemia Fatigue Hyperlipidemia Fatigue Hyperlipidemia Fatigue Hyperlipidemia Fatigue Hyperlipidemia Fatigue Obesity Obesity Obesity Obesity Obesity Obesity Obesity Obesity Obesity Obesity Obesity Obesity Obesity Obesity Outpatient<td Attender: [place] 05/16/2019 MIDDLES[place] ID="[id number]">*No [facility] 02:18:00 PM ([place] Show*</td><[facility]</td><td>[facility] 05/16/2019 [facility]</td><td>05/16/2019</td><td></td> 11:59:0 0 PM Center) EDT Immunizations Vaccine Date Status Description Data Source(s) Misoprostol #4 (MAB) 10/25/2019 completed eCW2 ([facility] 04:19:00 PM EDT - [place]) Mifepristone 10/25/2019 completed eCW2 ([facility] 04:18:00 PM EDT - [place]) Medications Medication Brand Start Product Dose Route Administrative Pharmacy [facility] Indications Reaction Description Data Name Date Form Instructions Instructions Source(s) lansoprazol Lansop 02/19/ UNIT 1 complet Lansop razole e 30 MG razole 2019 ed ([facility] Delayed 30MG 12:00: Juan Release Oral 00 AM Neighborho Oral Capsul EDT od Health Capsule e Center) Lansoprazol Delaye e 30MG Oral d Capsule Releas Delayed e Release Amoxicillin Amoxic 02/19/ UNIT complet Amoxic illin SARAI 500 MG Oral illin 2019 ed ([place] Capsule 500MG 12:00: Juan Amoxicillin Oral 00 AM Neighbo rho 500MG Oral Capsul EDT od Capsule e Center) Clarithromy Clarit 02/19/ UNIT 1 complet Clarit hromyc SARAI kobe 500 MG hromyc 2019 ed in ([place] Oral Tablet in 12:00: Juan Clarithromy 500MG 00 AM Neighb orho kobe 500MG Oral EDT od Health Oral Tablet Tablet Center ) Amoxicill-C Amoxic 02/13/ UNIT 1 suspend Amoxic ill-Cl SARAI larithro-La ill-Cl 2019 ed arithro-Sidney s ([place] nsopraz arithr 12:00: opraz Juan Oral o-Lans 00 AM Neighborho Miscellaneo opraz EDT od Heal us Oral Center) Miscel laneou s Famotidine Pepcid 12/27/ ORAL active MED ENT 40 MG Oral 2019 (Digestiv e Tablet 12:00: Disease & [Pepcid] 00 AM Nutrition EDT Center [facility]) No Active 12/27/ complet MEDEN T Medications 2019 ed (Digesti ve 12:00: Disease & 00 AM Nutrition EDT Center [facility]) Ondansetron UNK complet Ondanset dyan [place] 4 MG Oral 2020 MG ed 4 MG Oral r Cou nty Tablet D 01:46: Tablet Health 08 PM Disintegrati Care EDT ng TAKE 1 Corporatio TABLET EVERY n 8 HOURS NEEDED FOR NAUSEA AND VOMITING. Dispense: 15 Supervising physician: Biju Paalcios MD Esomeprazol UNK complet Esomepra zole [place] e 20 MG 2020 MG ed 20 MG r County Delayed Rel 11:36: Delayed Hea lth 55 PM Release Oral Care EDT Capsule Corporatio [Nexium] n Take 1 capsule (20 mg) by mouth daily Dispense: 14 Zofran Zofran 12/24/ 4 mg UNK active Zofran [facility] (Ondansetro (Ondan 2020 (Ondansetro n r County n) setron 11:07: ) Oral 4 mg Heal th ) 37 PM PO Care EDT Corporatio n Medication administered onsite Pantoprazole Pantoprazole 12/25/2019 40 UNK active Pantoprazole [place] (Proton (Proton 11:07:35 PM mg (Proton ix) [facility] EDT Oral 40 mg PO [facility] Medication administered onsite Mylanta(mag Mylanta(mag 12/25/2019 30 UNK active Mylanta (mag [place] hydrox/a hydrox/a 10:56:19 PM mL hydro x/al [facility] EDT hydrox/simeth) [facility] 30 mL PO Corpo ration Medication administered onsite Pepcid Pepcid 12/25/2019 20 UNK active Pepcid [place] (Famotidine) (Famotidine) 10:56:19 PM mg (Famotidine) [facility] EDT Oral Give 20 Health Care mg PO Corporation Medication administered onsite Lidocaine Lidocaine 12/25/2019 10 UNK active L idocaine [place] Viscous So Viscous So 10:56:19 PM [facility] Give Corporatio n 10 mL PO Medication administered onsite Pepcid Pepcid 12/25/2019 20 UNK active Pepcid [place] (Famotidine) (Famotidine) 03:49:14 AM mg (Famotidine) [facility] EDT Oral Give 20 Health Care mg PO Corporation Medication administered onsite Mylanta(mag Mylanta(mag 12/25/2019 30 UNK active Mylanta (mag [place] hydrox/a hydrox/a 03:49:14 AM mL hydro x/al [facility] EDT hydrox/simeth) [facility] Care Give 30 mL PO Corpo ration Medication administered onsite Lidocaine Lidocaine 12/25/2019 10 UNK active L idocaine [place] Viscous So Viscous So 03:49:14 AM mL [facility] Oral Give Corporatio n 10 mL PO Medication administered onsite Multivitamins Multivitamins 05/23/2019 UNIT 1 active Multivitamins SARAI Oral Capsule Oral Capsule 12:00:00 AM ([facility]) Tricor 48MG Tricor 48MG 05/22/2019 UNIT 1 active Tricor SARAI Oral Tablet Oral Tablet 12:00:00 AM ([facility]) Ergocalciferol Ergocalciferol 01/23/2019 UNIT complet Ergocalciferol SARAI [id number] UNT Oral [id number] Oral 12:00:00 AM ed ([place] Capsule Capsule EDT [facility] [id number] Oral Cente r) Capsule Tricor 48MG Tricor 48MG 01/23/2019 UNIT 1 suspend Tricor SARAI Oral Tablet Oral Tablet 12:00:00 AM ed ([place] [facility]) Ascorbic Acid Ascorbic Acid 01/23/2019 UNIT 1 complet Ascorbic Acid SARAI 500 MG Oral 500MG Oral 12:00:00 AM ed ([place] Tablet Tablet EDT [facility] Ascorbic Acid Health 500MG Oral Center) Tablet ferrous Ferrous 01/23/2019 UNIT 1 complet Eric us SARAI sulfate 325 MG Sulfate 325 12:00:00 AM ed Sulfate ([place] Oral Tablet (65 Fe)MG Oral EDT [facility] Ferrous Tablet Health Sulfate 325 [place]) (65 Fe)MG Oral Tablet Insurance Providers Payer name Policy type / Policy ID Covered Covered constitution party's Policy Plan Coverage type constitution party ID relationship to Lucio Information lucio MEDICAID [id number] SP [id number] UNK [id number] UNK [id number] W [id number] MEDICAID [id number] SP [id number] MVP [place]ICAID [id number] SP [id number] O MVP/HHP O [id number] 01 [id number] MVP/HHP O [id number] MVP Health Individual 0 Self 0 Plan of New Policy [place] MVP Health Individual 0 Self 0 Plan of [place] Policy [place] MVP Health Individual 0 Self 0 Plan of [place] Policy [place] MVP Health Individual 0 Self 0 Plan of [place] Policy [place] MVP Health Individual 0 Self 0 Plan of [place] Policy [place] Problems, Conditions, and Diagnoses Code Display Name Description Problem Type Effective Data Sour ce(s) Dates [id number] Human Human Papilloma Problem 03/11/2020 [place] ([place] papillomavirus Virus Infection 12:00:00 AM Kyle on infection [facility] (disorder) [facility]) [id number] Chlamydial Chlamydial Problem 03/11/2020 [place] ([place] infection Infections 12:00:00 AM Juan (disorder) [facility]) [id number] Acute gonorrhea of Gonococcal Problem 03/11/2020 [place] ([place] genitourinary tract Infections Acute 12:00:00 A M Juan (disorder) [facility]onorr[facility]) [id number] Hyperlipidemia Hyperlipidemia Problem 03/11/2020 [place] ([place] (disorder) 12:00:00 AM [facility]) [id number] Human Human Papilloma Problem 02/19/2020 [place] ([place] papillomavirus Virus Infection 12:00:00 AM Kyle on infection [facility] ([facility]) [id number] Chlamydial Chlamydial Problem 02/19/2020 [place] ([place] t infection Infections 12:00:00 AM Juan (disorder) [facility]) [id number] Acute gonorrhea of Gonococcal Problem 02/19/2020 [place] ([place] genitourinary tract Infections Acute 12:00:00 A M Juan (disorder) Gonorrhea 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) [id number] Chlamydial Chlamydial Problem 02/14/2020 [place] ([place] t infection Infections 12:00:00 AM Juan (disorder) [facility]) 60637118 Acute gonorrhea of Gonococcal Problem 02/14/2020 [place] ([place] genitourinary tract Infections Acute 12:00:00 A M Juan (disorder) [facility]onorr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) [id number] Chlamydial Chlamydial Problem 02/14/2020 [place] (M[place] t infection Infections 12:00:00 AM Juan (disorder) [facility]) [id number] Acute gonorrhea of Gonococcal Problem 02/14/2020 [place] ([place] genitourinary tract Infections Acute 12:00:00 A M Juan (disorder) [facility]onorr[facility]) [id number] Hyperlipidemia Hyperlipidemia Problem 02/14/2020 [place] ([place] (disorder) 12:00:00 AM [facility]) [id number] Human Human Papilloma Problem 02/05/2020 [place] ([place] papillomavirus Virus Infection 12:00:00 AM Kyle on infection [facility]) [id number] Chlamydial Chlamydial Problem 02/05/2020 [place] ([place] t infection Infections 12:00:00 AM Juan (disorder) [facility]) 93148660 Acute gonorrhea of Gonococcal Problem 02/05/2020 [place] ([place] genitourinary tract Infections Acute 12:00:00 A M Juan (disorder) [facility]onorr[facility]) [id number] Hyperlipidemia Hyperlipidemia Problem 02/05/2020 [place] ([place] (disorder) 12:00:00 AM [facility]) [id number] Human Human Papilloma Problem 02/05/2020 [place] ([place] papillomavirus Virus Infection 12:00:00 AM Kyle on infection [facility]) [id number] Chlamydial Chlamydial Problem 02/05/2020 [place] ([place] t infection Infections 12:00:00 AM Juan (disorder) [facility]) [id number] Acute gonorrhea of Gonococcal Problem 02/05/2020 [place] ([place] genitourinary tract Infections Acute 12:00:00 A M Juan (disorder) [facility]orr[facility]) [id number] Hyperlipidemia Hyperlipidemia Problem 02/05/2020 [place] ([place] (disorder) 12:00:00 AM [facility]) [id number] Human Human Papilloma Problem 02/05/2020 [place] ([place] papillomavirus Virus Infection 12:00:00 AM Kyle on infection [facility]) [id number] Chlamydial Chlamydial Problem 02/05/2020 [place] (M[place] t infection Infections 12:00:00 AM Juan (disorder) [facility]) [id number] Acute gonorrhea of Gonococcal Problem 02/05/2020 [place] ([place] genitourinary tract Infections Acute 12:00:00 A M Juan (disorder) [facility]onorr[facility]) [id number] Hyperlipidemia Hyperlipidemia Problem 02/05/2020 [place] [facility] ([place] (disorder) 12:00:00 AM [facility]) [id number] Human Human Papilloma Problem 02/04/2020 [place] ([place] papillomavirus Virus Infection 12:00:00 AM Kyle on infection [facility]) [id number] Chlamydial Chlamydial Problem 02/04/2020 [place] (M[place] t infection Infections 12:00:00 AM Juan (disorder) [facility]) 55048517 Acute gonorrhea of Gonococcal Problem 02/04/2020 [place] ([place] genitourinary tract Infections Acute 12:00:00 A M Juan (disorder) [facility]onorr[facility]) [id number] Hyperlipidemia Hyperlipidemia Problem 02/04/2020 [place] ([place] (disorder) 12:00:00 AM [facility]) [id number] Human Human Papilloma Problem 02/04/2020 [place] ([place] papillomavirus Virus Infection 12:00:00 AM Kyle on infection [facility]) [id number] Chlamydial Chlamydial Problem 02/04/2020 [place] ([place] infection Infections 12:00:00 AM Juan (disorder) [facility]) 68019620 Acute gonorrhea of Gonococcal Problem 02/04/2020 [place] ([place] genitourinary tract Infections Acute 12:00:00 A M Juan (disorder) [facility]onorr[facility]) [id number] Hyperlipidemia Hyperlipidemia Problem 02/04/2020 [place] ([place] (disorder) 12:00:00 AM [facility]) [id number] Human Human Papilloma Problem 01/31/2020 [place] ([place] papillomavirus Virus Infection 12:00:00 AM Kyle on infection [facility]) [id number] Chlamydial Chlamydial Problem 01/31/2020 [place] ([place] t infection Infections 12:00:00 AM Juan (disorder) [facility]) 41649222 Acute gonorrhea of Gonococcal Problem 01/31/2020 [place] ([place] genitourinary tract Infections Acute 12:00:00 A M Juan (disorder) [facility]onorr[facility]) [id number] Hyperlipidemia Hyperlipidemia Problem 01/31/2020 [place] ([place] (disorder) 12:00:00 AM [facility]) [id number] Human Human Papilloma Problem 2019 [place] ([place] papillomavirus Virus Infection 12:00:00 AM Kyle on infection [facility]) [id number] Chlamydial Chlamydial Problem 2019 [place] ([place] t infection Infections 12:00:00 AM Bynum (disorder) [facility]) 39682309 Acute gonorrhea of Gonococcal Problem 2019 [place] ([place] genitourinary tract Infections Acute 12:00:00 A M Juan (disorder) Gonorrhea [facility]) [id number] Hyperlipidemia Hyperlipidemia Problem 2019 [place] ([place] (disorder) 12:00:00 AM [facility]) [id number] Human Human Papilloma Problem 05/23/2019 [place] ([place] papillomavirus Virus Infection 12:00:00 AM Kyle on infection [facility]) [id number] Chlamydial Chlamydial Problem 05/23/2019 [place] ([place] t infection Infections 12:00:00 AM Juan (disorder) [facility]) 44275853 Acute gonorrhea of Gonococcal Problem 05/23/2019 [place] ([place] genitourinary tract Infections Acute 12:00:00 A M Juan (disorder) [facility]onorr[facility]) [id number] Hyperlipidemia Hyperlipidemia Problem 05/23/2019 [place] ([place] (disorder) 12:00:00 AM [facility]) [id number] Human Human Papilloma Problem 05/23/2019 [place] ([place] papillomavirus Virus Infection 12:00:00 AM Kyle on infection [facility]) [id number] Chlamydial Chlamydial Problem 05/23/2019 [place] ([place] t infection Infections 12:00:00 AM Byn[place] (disorder) [facility]) [id number] Acute gonorrhea of Gonococcal Problem 05/23/2019 [place] ([place] genitourinary tract Infections Acute 12:00:00 A M Juan (disorder) [facility]onorr[facility]) 62575122 Hyperlipidemia Hyperlipidemia Problem 05/23/2019 [place] ([place] (disorder) 12:00:00 AM [facility]) [id number] Human Human Papilloma Problem 05/23/2019 [place] ([place] papillomavirus Virus Infection 12:00:00 AM Kyle on infection EDT [facility] ([facility]) [facility]) [id number] Chlamydial Chlamydial Problem 05/23/2019 [place] ([place] infection Infections 12:00:00 AM B[place] (disorder) [facility]) [id number] Acute gonorrhea of Gonococcal Problem 05/23/2019 [facility] AY ([facility] genitourinary tract Infections Acute 12:00:00 A M Bynum (disorder) [facility]onorr[facility]) [id number] Hyperlipidemia Hyperlipidemia Problem 05/23/2019 [facility] AY ([facility] (disorder) 12:00:00 AM [facility]) R94.5 Abnormal results of ABNORMAL RESULTS Diagnosis 12/29/2019 [facility] liver function OF LIVER FUNCTION 08:35:00 AM [facility] studies STUDIES EDT N39.0 Urinary tract URINARY TRACT Diagnosis 12/29/2019 [facility] infection, site not INFECTION, SITE 08:35:00 AM Medical Center specified NOT SPECIFIED EDT R10.9 Unspecified UNSPECIFIED Diagnosis 12/29/2019 [facility] abdominal pain ABDOMINAL PAIN 08:35:00 AM [facility] EDT 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 EDT Care abdominal regions, RETROPERITON Saniya oration including retroperitoneum R10.13 Epigastric pain EPIGASTRIC PAIN Diagnosis 12/25/2019 [place] 10:53:00 PM [facility] EDT [employer] K29.70 Gastritis, GASTRITIS, Diagnosis 12/25/2019 [place] unspecified, UNSPECIFIED, 03:12:00 AM [facility] alth without bleeding WITHOUT BLEEDING EDT Tn re QuantiSense Surgeries/Procedures Procedure Description Date Indications Data Source(s) NUTRITION THERAPY NUTRITION THERAPY 03/11/2020 [facility] ([facility] RE-ASS RE-ASS 12:00:00 [facility]) Para 3 Para 3 02/28/2020 [place] ([facility] 12:00:00 [facility]) 3 3 02/28/2020 SARAI ([place] 12:00:00 [facility]) CARCINOEMBRYONIC CARCINOEMBRYONIC 02/28/2020 [place] ([facility] ANTIGEN (CEA) ANTIGEN (CEA) 12:00:00 [facility]) AFP (ALPHA FETOPROTEIN) AFP (ALPHA 02/28/2020 GREE NWAY ([facility] FETOPROTEIN) 12:00:00 [facility]) INHIBIN A INHIBIN A 02/28/2020 SARAI ([place] 12:00:00 [facility]) PREGNANGY TEST BIOCEPT PREGNANGY TEST BIOCEPT 02/28/2020 [place] ([facility] 12:00:00 [facility]) CA 19 - 9 CA 19 - 9 02/28/2020 [place] ([facility] 12:00:00 [facility]) CA 125 CA 125 02/28/2020 [place] ([facility] 12:00:00 [facility]) TSH-THYROID STIMULATING TSH-THYROID 02/28/2020 CYNDIE NWALYX ([facility] STIMULATING 12:00:00 [facility]) US PELVIC NONOBSTETRIC PELVIC, NON 02/19/2020 [facility] ([facility] REAL-TIME IMAGE OBSTETRICAL 12:00:00 [facility] NUTRITION THERAPY NUTRITION THERAPY 02/19/2020 [facility] ([facility] INITIAL INITIAL 12:00:00 [facility]) No prior serious No prior serious 02/18/2020 KETAN Peck ([facility] illness illness [facility] Sign language or oral Sign language or Oral 02/14/2020 [place] ([facility] interpretive services, Interpretation per 15 12:00:00 Bynum per 15 minutes [facility]) Result: normal Result: normal 02/05/2020 [place] (M ount 12:00:00 [facility]) Not using contraception Not using 02/05/2020 GREE NWALYX ([facility] contraception 12:00:00 [facility]) LMP: 01/06/2020 LMP: 01/06/2020 02/05/2020 [place] (M ount 12:00:00 [facility]) Cholescystectomy Cholescystectomy 02/05/2020 [place] ([facility] 12:00:00 [facility]) US ABDOMINAL REAL TIME ABDOMINAL 4 QUADS 02/05/2020SARAI ([facility] W/IMAGE DOCUMENTATION ULTRASOUND 12:00:00 [facility]) Para 7 Para 7 02/05/2020 SARAI ([facility] 12:00:00 [facility]) 11 11 02/05/2020 SARAI ([facility] 12:00:00 [facility]) Noncompliance with Noncompliance with 01/31/2020 [facility] ([facility] therapy therapy 12:00:00 [facility]) History of Eyes: normal History of Eyes: 01/31/2020 SARAI ([facility] normal 12:00:00 [facility]) Date of last Date of last 01/31/2020 [place] ([facility] menstruation 01/06/2020 menstruation 01/06/2020 12:00:00 [facility]) Bmi is documented above BMI > NORMAL 01/31/2020 [facility] ([facility] normal parameters and a DOCUMENTED W F/U PLAN 12:00:00 Juan follow-up plan is [facility] documented Health Center) VISUAL ACUITY SCREEN VISUAL ACUITY SCREEN 01/31/2020 [place] ([facility] 12:00:00 [facility]) Annual depression DEPRESSION SCREENING 01/31/2020 GR [place] ([facility] screening, 15 minutes (15 MINS) 12:00:00 [facility]) Sign language or oral Sign language or Oral 01/31/2020 [place] ([facility] interpretive services, Interpretation per 15 12:00:00 Bynum per 15 minutes Minutes [facility]) Bmi is documented above BMI > NORMAL 01/31/2020 [facility] ([facility] normal parameters and a DOCUMENTED W F/U PLAN 12:00:00 Juan follow-up plan is [facility]) No prior serious No prior serious 01/31/2020 [place] Y ([facility] illness illness 12:00:00 [facility]) ANES UPPER GI ENDOSCOPY 01/03/2020 MEDE NT (Digestive PROXIMAL TO DUODENUM 12:00:00 Disease & AM EDT [facility]) UPPER NDSC BIOPSY 01/03/2020 MEDENT (Di gestive SINGLE/MULTIPLE 12:00:00 Disease & AM EDT [facility]) US, POST AB only 11/08/2019 eCW2 (Plann ed 12:00:00 Parenthood - AM EDT [facility] [employer]) HEMOGLOBIN 10/25/2019 eCW2 (Planned 12:00:00 Parenthood - AM EDT [facility] [employer]) US transvaginal, 10/25/2019 eCW2 (Plann ed uterus 12:00:00 Parenthood - AM EDT [facility] [employer]) Test 10/25/2019 eCW2 (Planned 12:00:00 Parenthood - AM EDT [facility] [employer]) GONORRHEA, MAREN 10/25/2019 eCW2 (Planned 12:00:00 Parenthood - AM EDT [facility] [employer]) CHLAMYDIA, MAREN 10/25/2019 eCW2 (Planned 12:00:00 Parenthood - AM EDT [facility] [employer]) Mifepristone, oral, 200 10/25/2019 eCW2 (Planned mg 12:00:00 Parenthood - AM EDT [facility] [employer]) Misoprostol, oral, 200 10/25/2019 eCW2 (Planned mcg 12:00:00 Parenthood - AM EDT [facility] [employer]) Test 10/22/2019 eCW2 (Planned 12:00:00 Parenthood - AM EDT [facility] [employer]) No prior serious No prior serious 05/23/2019 KETAN Y ([facility] illness illness [facility] Date of last Date of last 05/23/2019 [place] ([facility] menstruation 05/03/2019 menstruation 05/03/2019 12:[facility] Sign language or oral Translation by Inhouse 05/22/2019 SARAI ([facility] interpretive services, Staff 12:00:00 Malika arevalo per [address] [facility]) EKG EKG 05/22/2019 [place] ([facility] Bmi documented outside BMI OUTSIDE NORMAL 05/22/2019 SARAI ([facility] normal parameters, no RANGE - NO F/U PLAN 12:00:00 Juan follow-up plan AM EDT Neighborhood documented, no reason Health Center) given Results ID Date Data Source [id number] 02/14/2020 12:00:00 AM EDT SARAI ([facility]) Name Value Range Interpretation Description Data Source(s ) Supporting Code Document(s ) Bacteria Final Urine SARAI identified in report Culture, ([place] Urine by Routine [facility] Culture [facility]) Bacteria No growth Result 1 SARAI identified in ([place] Urine by [facility] Culture [facility]) ID Date Data Source [id number] 02/04/2020 02:18:00 PM EDT SARAI ([facility]) Name Value Range Interpretation Description Data Source(s ) Supporting Code Document(s ) Helicobacter Positive Abnormal H. pylori SARAI pylori Ag (applies to Stool Ag, EIA ([place] [Presence] in non-numeric [facility] Stool by results) [facility]) Immunoassay ID Date Data Source [id number] 01/31/2020 12:00:00 AM EDT SARAI ([facility]) Name Value Range Interpretation Description Data Source(s ) Supporting Code Document(s ) Service See Note QuantiFERON SARAI ([facility] comment Criteria [facility]) Note: The QuantiFERON-TB Gold Plus resul t is determined by subtractingthe Nil value from either TB antigen (Ag) tube. The mi togen tubeserves as a control for the test. QuantiFERON TB2 6.44 IU/mL QuantiFERON TB2 [place] ([facility] Ag Value Ag Value [facility]) QuantiFERON Incubation QuantiFERON SARAI ([facility] Incubation performed. Incubation [facility]) QuantiFERON TB1 >10.00 IU/mL QuantiFERON TB1 [place] [address] ([facility] Ag Value Ag Value [facility]) Gamma interferon 0.49 IU/mL QuantiFERON Nil [place] AY ([facility] background Value Juan [Units/volume] in [facility] Blood by Health [place]) Immunoassay QuantiFERON 6.90 IU/mL QuantiFERON SARAI ([facility] Mitogen Value Mitogen Value [facility]) QuantiFERON-TB Positive Abnormal QuantiFERON-TB SARAI ( [facility] Gold Plus (applies to Gold Plus Juan non-numeric [facility] results) [facility]) ID Date Data Source [id number] 01/31/2020 12:00:00 AM EDT [place] ([facility]) Name Value Range Interpretation Description Data Source(s ) Supporting Code Document(s ) Hepatitis B Negative Hep B Core SARAI virus core Ab Ab, Tot ([place] [Presence] in [facility] Serum or [facility] [place]) Plasma by Immunoassay ID Date Data Source [id number] 01/31/2020 12:00:00 AM EDT [place] ([facility]) Name Value Range Interpretation Description Data Source(s ) Supporting Code Document(s ) Hepatitis B Negative Hep Be Ag SARAI virus e Ag ([place] [Presence] in [facility] Serum or Health [place]) Plasma by Immunoassay ID Date Data Source [id number] 01/31/2020 12:00:00 AM EDT [place] ([facility]) Name Value Range Interpretation Description Data Source(s ) Supporting Code Document(s ) Ferritin 20 ng/mL Ferritin, SARAI ([place] [Mass/volum Serum Juan e] in Serum Neighborhood or Plasma Health Center) ID Date Data Source [id number] 01/31/2020 12:00:00 AM EDT SARAI ([facility]) Name Value Range Interpretation Description Data Source(s ) Supporting Code Document(s ) Hepatitis C 0.2 Hep C Virus SARAI virus Ab s/co_rat Ab ([place] Signal/Cutoff io Neighborhood in Serum or Health Center) Plasma by Immunoassay Note: Negative: < 0.8 Indeterm inate: 0.8 - 0.9 Positive: > 0.9 The CDC recommends that a positive HCV antibody result be followed up with a HCV Nucleic Acid Amplification test (28702 3). ID Date Data Source [id number] 01/31/2020 12:00:00 AM EDT SARAI ([facility]) Name Value Range Interpretation Description Data Source(s ) Supporting Code Document(s ) HIV 1+2 Non HIV Screen SRAAI Ab+HIV1 p24 Reactive 4th ([place] Ag [Presence] Generation Neighborhood in Serum or [facility]) Plasma by Immunoassay ID Date Data Source [id number] 01/31/2020 12:00:00 AM EDT [place] ([facility]) Name Value Range Interpretation Description Data Source(s ) Supporting Code Document(s ) Hepatitis B Non Hep B Surface SARAI virus Reactive Ab, Qual ([place] surface Ab [facility] [Presence] [facility]) in Serum Note: Non R eactive: Inconsistent with immunity, less th an 10 mIU/mL Reactive: Consistent with immunity, greater than 9.9 mIU/mL ID Date Data Source [id number] 01/31/2020 12:00:00 AM EDT SARAI ([facility]) Name Value Range Interpretation Description Data Source(s ) Supporting Code Document(s ) Thyrotropin 0.577 TSH SARAI ([facility] [Units/volume] uIU/mL Juan in Serum or [facility] Plasma by [facility] [place]) Detection limit <= 0.05 mIU/L ID Date Data Source [id number] 01/31/2020 12:00:00 AM EDT SARAI ([facility]) Name Value Range Interpretation Description Data Source(s ) Supporting Code Document(s ) Hemoglobin 5.0 % Hemoglobin A1c SARAI ([facility], 1928[facility]1983 A1c/Hemoglobi Juan n.total in [facility] Blood [facility]) Note: Prediabetes: 5.7 - 6.4 Diabetes: >6.4 Glycemic control for adults with diabetes: <7.0 ID Date Data Source [id number] 01/31/2020 12:00:00 AM EDT SARAI ([facility]) Name Value Range Interpretation Description Data Source(s ) Supporting Code Document(s ) Iron 41 ug/dL Iron SARAI ([facility] [Mass/volu Juan me] in [facility] Serum or Health Center) Plasma Note: Reference Range:>=10y: 37 - 145 ID Date Data Source [id number] 01/31/2020 12:00:00 AM EDT SARAI ([facility]) Name Value Range Interpretation Description Data Source(s ) Supporting Code Document(s ) Cobalamin 758 Vitamin B12 SARAI ([facility] (Vitamin pg/mL Juan B12) [facility] [Mass/volume Health Center) ] in Serum or Plasma Folate >20.0 Folate (Folic SARAI ([facility] [Mass/volume ng/mL Acid), Serum Juan ] in Serum [facility] or Plasma [facility]) Note: A serum folate concentration of le ss than 3.1 ng/mL isconsidered to represent clinical deficiency. ID Date Data Source [id number] 01/31/2020 12:00:00 AM EDT SARAI ([facility]) Name Value Range Interpretation Description Data Source(s ) Supporting Code Document(s ) Neisseria Negative Neisseria SARAI gonorrhoeae gonorrhoeae, ([place] rRNA [Presence] MAR[place] Neighborhood in [facility]) specimen by Probe and target amplification method Chlamydia Negative Chlamydia [place] trachomatis trachomatis, ([place] rRNA [Presence] MAREN [facility] in [facility]) specimen by Probe and target amplification method ID Date Data Source [id number] 01/31/2020 12:00:00 AM EDT SARAI ([facility]) Name Value Range Interpretation Description Data Source(s ) Supporting Code Document(s ) Cholesterol in 63 HDL Cholesterol SARAI HDL mg/dL ([place] [Mass/volume] [facility] in Serum or [facility] [place]) Plasma Cholesterol 199 Cholesterol, SARAI [Mass/volume] mg/dL Total ([place] in Serum or [facility] Plasma [facility]) Triglyceride 142 Triglycerides SARAI [Mass/volume] mg/dL ([place] in Serum or [facility]) Laboratory N/A Comment: SARAI comment [Text] ([place] in Report [facility]) Cholesterol in 1.7 LDL/HDL Ratio SARAI LDL/Cholestero ratio ([place] l in HDL [Mass Neighborhood Ratio] in [facility]) Serum or Plasma Note: LDL/HDL Ratio Men Women 1/2 Avg.Risk 1.0 1.5 Avg.Risk 3.6 3.2 2X Avg.Risk 6.2 5.0 3X Avg.Risk 8.0 6.1 Cholesterol in VLDL 28 mg/dL VLDL Cholesterol GRE ENWAY ([place] [Mass/volume] in [facility] Serum or Plasma by Health Cent er) calculation Cholesterol in LDL 108 mg/dL Above high LDL Cholesterol GREE NWAY ([place] [Mass/volume] in normal Calc [facility] Serum or Plasma by Health Cent er) calculation ID Date Data Source [id number] 01/31/2020 12:00:00 AM EDT SARAI ([facility]) Name Value Range Interpretation Description Data Sup porting Code Source(s) Document(s ) Glucose 88 Glucose SARAI [Mass/volume] in mg/dL ([place] Serum or Plasma [facility]) Calcium 9.6 Calcium SARAI [Mass/volume] in mg/dL ([facility] or [facility]) Urea nitrogen 9 mg/dL BUN SARAI [Mass/volume] in ([facility]) Albumin 4.5 Albumin SARAI [Mass/volume] in g/dL ([facility]) Protein 7.5 Protein, SARAI [Mass/volume] in g/dL Total ([facility] or [facility]) Alkaline 91 IU/L Alkaline SARAI phosphatase Phosphatase ([place] [Enzymatic [facility] activity/volume] [facility] in Serum or [facility]) Bilirubin.total 0.5 Bilirubin, SARAI [Mass/volume] in mg/dL Total ([facility] or [facility]) Potassium 4.3 Potassium SARAI [Moles/volume] in mmol/L ([facility]) Aspartate 27 IU/L AST (SGOT) SARAI aminotransferase ([place] [Enzymatic [facility] activity/volume] [facility] in Serum or [facility]) Sodium 141 Sodium SARAI [Moles/volume] in mmol/L ([facility]) Chloride 105 Chloride SARAI [Moles/volume] in mmol/L ([facility] or [facility]) Creatinine 0.65 Creatinine SARAI [Mass/volume] in mg/dL ([facility]) Alanine 45 IU/L Above high ALT (SGPT) [place] aminotransferase normal ([place] [Enzymatic [facility] activity/volume] [facility] in Serum or [facility]) Urea 14 BUN/Creatinin SARAI nitrogen/Creatinin e Ratio ([facility] on e [Mass Ratio] in [facility]) Carbon dioxide, 20 Carbon SARAI total mmol/L Dioxide, ([place] [Moles/volume] in Total [facility]) eGFR If NonAfricn 113 eGFR If SARAI Am mL/min/ NonAfricn Am ([address]) Globulin 3.0 Globulin, SARAI [Mass/volume] in g/dL Total ([facility] by [facility]) Albumin/Globulin 1.5 A/G Ratio SARAI [Mass Ratio] in ([facility] or [facility]) eGFR If Africn Am 130 eGFR If SARAI mL/min/ Africn Am ([place] [address]) ID Date Data Source [id number] 01/11/2020 03:55:00 PM EDT MEDENT ([facility] tive Disease & Nutrition [facility]) Name Value Range Interpretation Description Data Sup porting Code Source(s) Document(s ) Protein 7.8 5.7-8.2 Normal (applies [facility] [Mass/volume] in GM/DL to non-numeric (Digesti ve Serum or Plasma results) Disease & Nutrition [facility] ) Albumin 5.0 3.4-4.8 Above high MED[facility] [Mass/volume] in GM/DL normal (Digestive Serum or Plasma Disease & Nutrition [facility] ) Laboratory test 1.8 1.0-2.1 Normal (applies MEDENT finding to non-numeric (Digestive (navigational results) Disease & concept) Nutrition [facility] ) Bilirubin.total 0.9 0.3-1.2 Normal (applies [facility] [Mass/volume] in mg/dL to non-numeric (Digesti ve Serum or Plasma results) Disease & Nutrition [facility] ) Bilirubin.conjugate 0.4 Above high MEDENT d [Mass/volume] in mg/dL normal (Digestive Serum or Plasma Disease & Nutrition [facility] ) Alkaline 122 U/L 41-147 Normal (applies MEDENT phosphatase to non-numeric (Digestive [Enzymatic results) Disease & activity/volume] in Nutrition Serum or Plasma [facility] ) Alanine 185 U/L 8-35 Above high MEDENT aminotransferase normal (Digestive [Enzymatic Disease & activity/volume] in Nutrition Serum or Plasma [facility] ) Aspartate 72 U/L 10-48 Above high MED[facility] aminotransferase normal (Digestive [Enzymatic Disease & activity/volume] in Nutrition Serum or Plasma [facility] ) ID Date Data Source [id number] 01/03/2020 05:33:00 PM EDT MEDENT ([facility] ti Disease & Nutrition [facility]) Name Value Range Interpretation Description Data Sup porting Code Source(s) Document(s ) Laboratory Laboratory MEDENT test finding test result (Digestive (navigational Disease & concept) Nutrition [facility] ) ID Date Data Source [id number] 01/03/2020 03:26:00 AM EDT MEDENT ([facility] tive Disease & Nutrition [facility]) Name Value Range Interpretation Description Data Sup porting Code Source(s) Document(s ) Surgical Laboratory MEDENT pathology test result (Digestive study Disease & Nutrition Center [facility]) PATIENT: KAISER GOMEZ ACCT: [id number] LOC: WC14 U: [id number] AGE/SX: 39/F ROOM: RE 01/03/[address]: PRABHA MCKEON OB: 1980 BED: DIS: STATUS: REG REF TLOC: SPEC #: [id number] RECD: STATUS: KIMBERLY SCHROEDERAnne #: [id number] FER: 0-UNK ENTERED: 01/04/20 SP TYPE: MLW SURG SUBM DR: PRABHA MCKEON DR: FINAL PATHOLOGIC DIAGNOSIS GASTRIC BODY, BIOPSY: - GASTRIC ANTRAL GLAND MUCOSA WITH MIL DLY ACTIVE NONSPECIFIC GASTRITIS. NEGATIVE FOR H. PYLORI (GIEMSA STAIN). Cade Romo K29.60 Gross Description The specimen is labeled with the patient 's name, other identifying information, and "stomach body " . Received in formalin are multip le pieces of helms soft tissue ranging from 0.1-0.3 cm in maximum dimension, which are entirely submitted in one cassette. TISSUES: STOMACH BX. - BODY EPIGASTRIC PAIN, R/O H PYLORI, R/O INFLA MMATION, R/O NEOPLASM Signed (signature on file)____ Caed Romo 01/08/20 1458 ID Date Data Source Coagulation 12/29/2019 12:30:00 PM [facility] Rout.[id number] EDT Name Value Range Interpretation Description Data Sup porting Code Source(s) Document(s ) UNK 9.0-13.0 <content Saint styleCode="Bold" Freya >Protime Medical </content>11.7 Center SEC<content styleCode="Itali cs"> (9.0-13.0 SEC)</content> INR in 0.80-1.2 <content [facility] Platelet poor 0 styleCode="Bold" Freya plasma by >INR Medical Coagulation </content>1.05 Center assay #<content styleCode="Itali cs"> (0.80-1.20 #)</content> aPTT in 25.1-36. <content [facility] Platelet poor 5 styleCode="Bold" Freya plasma by >Partial Medical Coagulation Thromboplastin Center assay Time </content>33.6 SEC<content styleCode="Itali cs"> (25.1-36.5 SEC)</content> ID Date Data Source Liver 12/29/2019 11:39:00 AM EDT [facility] Profile.[id number] Name Value Range Interpretation Description Data Sup porting Code Source(s) Document(s ) Aspartate 14-36 Above high <content [facility] aminotransferase normal styleCode="Bold"> Jame hs [Enzymatic Aspartate Medical activity/volume] Aminotransferase Center in Serum or Plasma (AST) </content>370 IU/L H<content styleCode="Italic s"> (14-36 IU/L)</content> Alkaline 38-126 Above high <content [facility] phosphatase normal styleCode="Bold"> Freya [Enzymatic Alkaline Medical activity/volume] Phosphatase (ALP) Cente r in Serum or Plasma </content>154 IU/L H<content styleCode="Italic s"> (38-126 IU/L)</content> UNK 0.0-0.3 <content Saint styleCode="Bold"> Freya Bilirubin, Direct Medical </content>< 0.2 Center MG/DL<content styleCode="Italic s"> (0.0-0.3 MG/DL)</content> Alanine 7-30 Above high <content [facility] aminotransferase normal styleCode="Bold"> Jame hs [Enzymatic Alanine Medical activity/volume] Aminotransferase Center in Serum or Plasma (ALT) </content>640 IU/L H<content styleCode="Italic s"> (7-30 IU/L)</content> Bilirubin.total 0.2-1.3 <content [facility] [Mass/volume] in styleCode="Bold"> Jame hs Serum or Plasma Bilirubin Total Medical </content>1.0 Center MG/DL<content styleCode="Italic s"> (0.2-1.3 MG/DL)</content> Albumin 3.5-5.0 <content [facility] [Mass/volume] in styleCode="Bold"> Jame hs Serum or Plasma Albumin Medical </content>4.5 Center G/DL<content styleCode="Italic s"> (3.5-5.0 G/DL)</content> ID Date Data Source HematologyRou.[id number] 12/29/2019 11:39:00 AM EDT Ed [facility] 0400 Name Value Range Interpretation Description Data Sup porting Code Source(s) Document(s ) Erythrocytes 4.0-5.1 <content [facility] [#/volume] in styleCode="Bold Freya Blood by ">Red Blood Medical Automated count Cell Count Center </content>4.35 MCUMM<content styleCode="Ital ics"> (4.0-5.1 MCUMM)</content > Leukocytes 4.4-11.0 Below low normal <content Saint [#/volume] in styleCode="Bold Freya Blood by ">White Blood Medical Automated count Cell Count Center </content>3.76 KCUMM L<content styleCode="Ital ics"> (4.4-11.0 KCUMM)</content > Hemoglobin 12.3-16. Below low normal <content [facility] [Mass/volume] in 0 styleCode="Bold Freya Blood ">Hemoglobin Medical </content>9.8 Center G/DL L<content styleCode="Ital ics"> (12.3-16.0 G/DL)</content> Hematocrit 36.0-46. Below low normal <content [facility] [Volume 0 styleCode="Bold Freya Fraction] of ">Hematocrit Medical Blood by </content>33.1 Center Automated count % L<content styleCode="Ital ics"> (36.0-46.0 %)</content> Erythrocyte mean 32.0-37. Below low normal <content [facility] corpuscular 0 styleCode="Bold Freya hemoglobin ">Mean Corpus. Medical concentration Hgb Center [Mass/volume] by Concentration Automated count (MCHC) </content>29.6 G/DL L<content styleCode="Ital ics"> (32.0-37.0 G/DL)</content> Erythrocyte mean 26.0-34. Below low normal <content [facility] corpuscular 0 styleCode="Bold Freya hemoglobin ">Mean Medical [Entitic mass] Corposcular Center by Automated Hemoglobin count </content>22.5 PG L<content styleCode="Ital ics"> (26.0-34.0 PG)</content> Erythrocyte mean 80.0-100 <content [facility] corpuscular .0 styleCode="Bold Freya volume [Entitic ">Mean Medical volume] by Corpuscular Center Automated count Volume </content>76.1 FL<content styleCode="Ital ics"> (80.0-100.0 FL)</content> Erythrocyte 11.5-14. Above high <content [facility] distribution 5 normal styleCode="Bold Freya width [Ratio] by ">Red Cell Medical Automated count Distribution Center Width </content>20.4 % H<content styleCode="Ital ics"> (11.5-14.5 %)</content> Platelets 130-400 <content Saint [#/volume] in styleCode="Bold Freya Blood by ">Platelet Medical Automated count Count Center </content>315 KCUMM<content styleCode="Ital ics"> (130-400 KCUMM)</content > UNK 0 <content Saint styleCode="Bold Freya ">Nucleated Red Medical Blood Cell Center </content>0.0 /100<content styleCode="Ital ics"> (0 /100)</content> Platelet mean 8.0-11.0 Above high <content Saint volume [Entitic normal styleCode="Bold Freya volume] in Blood ">Mean Platelet Medical by Automated Volume Center count </content>11.7 FL H<content styleCode="Ital ics"> (8.0-11.0 FL)</content> UNK 0.0 <content Saint styleCode="Bold Freya ">Nucleated Red Medical Blood Cell Center Count </content>0.00 KCUMM<content styleCode="Ital ics"> (0.0 KCUMM)</content > ID Date Data Source GFR(Creatinine).[id number] 12/29/2019 11:39:00 AM EDT Ed [facility] 0-0400 Name Value Range Interpretation Code Description Data Nadia rce(s) Supporting Document(s ) UNK > 60 <content [facility] styleCode="Bold"> Medical Cent er EGFR </content>119 GFR<content styleCode="Italic s"> (> 60 GFR)</content> ID Date Data Source PRATIKMROUTLETYCCDA.[id number] 12/29/2019 11:39:00 AM EDT [facility] -0400 Name Value Range Interpretation Description Data Sup porting Code Source(s) Document(s ) UNK 30-110 <content [facility] [place] styleCode="Bold Medical ">Amylase Center </content>82 IU/L<content styleCode="Ital ics"> (30-110 IU/L)</content> Lipase 23-300 Above high normal <content [place] s [Enzymatic styleCode="Bold Medical activity/vo ">Lipase Center lume] in </content>315 Serum or IU/L H<content Plasma styleCode="Ital ics"> (23-300 IU/L)</content> ID Date Data Source [facility].[id number] 12/29/2019 11:39:00 AM EDT [facility] Name Value Range Interpretation Description Data Sup porting Code Source(s) Document(s ) Sodium 137-145 <content [facility] [Moles/volume] in styleCode="Bold"> Yifan phs Serum or Plasma Sodium Medical </content>139 Center MEQ/L<content styleCode="Italic s"> (137-145 MEQ/L)</content> Carbon dioxide, 22-30 <content [facility] total styleCode="Bold"> Freya [Moles/volume] in Carbon Dioxide Medical Serum or Plasma </content>25 Center MEQ/L<content styleCode="Italic s"> (22-30 MEQ/L)</content> Chloride 98-107 <content [facility] [Moles/volume] in styleCode="Bold"> Yifan phs Serum or Plasma Chloride Medical </content>105 Center MEQ/L<content styleCode="Italic s"> (98-107 MEQ/L)</content> UNK 7-17 Below low <content [facility] normal styleCode="Bold"> Freya BUN </content>4 Medical MG/DL L<content Center styleCode="Italic s"> (7-17 MG/DL)</content> Potassium 3.5-5.3 <content [facility] [Moles/volume] in styleCode="Bold"> Yifan phs Serum or Plasma Potassium Medical </content>4.3 Center MEQ/L<content styleCode="Italic s"> (3.5-5.3 MEQ/L)</content> Creatinine 0.5-1.3 <content [facility] [Mass/volume] in styleCode="Bold"> Jame hs Serum or Plasma Creatinine Medical </content>0.6 Center MG/DL<content styleCode="Italic s"> (0.5-1.3 MG/DL)</content> UNK > 60 <content Saint styleCode="Bold"> Freya EGFR Medical </content>119 Center GFR<content styleCode="Italic s"> (> 60 GFR)</content> Glucose 74-106 Above high <content Saint [Mass/volume] in normal styleCode="Bold"> Jame hs Serum or Plasma Glucose Medical </content>109 Center MG/DL H<content styleCode="Italic s"> (74-106 MG/DL)</content> Calcium 8.4-10. <content [facility] [Mass/volume] in 2 styleCode="Bold"> Jame hs Serum or Plasma Calcium Medical </content>9.6 Center MG/DL<content styleCode="Italic s"> (8.4-10.2 MG/DL)</content> Alkaline 38-126 Above high <content [facility] phosphatase normal styleCode="Bold"> Freya [Enzymatic Alkaline Medical activity/volume] Phosphatase (ALP) Cente r in Serum or Plasma </content>154 IU/L H<content styleCode="Italic s"> (38-126 IU/L)</content> Aspartate 14-36 Above high <content [facility] aminotransferase normal styleCode="Bold"> Jame hs [Enzymatic Aspartate Medical activity/volume] Aminotransferase Center in Serum or Plasma (AST) </content>370 IU/L H<content styleCode="Italic s"> (14-36 IU/L)</content> Bilirubin.total 0.2-1.3 <content [facility] [Mass/volume] in styleCode="Bold"> Jame hs Serum or Plasma Bilirubin Total Medical </content>1.0 Center MG/DL<content styleCode="Italic s"> (0.2-1.3 MG/DL)</content> Albumin 3.5-5.0 <content [facility] [Mass/volume] in styleCode="Bold"> Jame hs Serum or Plasma Albumin Medical </content>4.5 Center G/DL<content styleCode="Italic s"> (3.5-5.0 G/DL)</content> Alanine 7-30 Above high <content [facility] aminotransferase normal styleCode="Bold"> Jame hs [Enzymatic Alanine Medical activity/volume] Aminotransferase Center in Serum or Plasma (ALT) </content>640 IU/L H<content styleCode="Italic s"> (7-30 IU/L)</content> ID Date Data Source Urinalysis.[id number] 12/29/2019 09:40:00 AM EDT [facility] 0 Name Value Range Interpretation Description Data Sup porting Code Source(s) Document(s ) Color of Urine YELLOW <content [facility] styleCode="[facility] d">Color, Medical Urine Center </content>YELL OW <content styleCode="Sarika lics"> (YELLOW )</content> UNK CLEAR <content Saint styleCode="[facility] d">Urine Medical Clarity Center </content>MARYA R <content styleCode="Sarika lics"> (CLEAR )</content> Glucose NEGATIVE <content Saint [Mass/volume] styleCode="Torie Pillai in Urine by d">Urine Medical Test strip Glucose Center </content>NEGA TIVE MG/DL<content styleCode="Sarika lics"> (NEGATIVE MG/DL)</conten t> UNK NEGATIVE <content Saint styleCode="[place] d">Urine Medical Bilirubin Center </content>MODE RATE <content styleCode="Sarika lics"> (NEGATIVE )</content> Hemoglobin NEGATIVE <content Saint [Presence] in styleCode="[place]ie [place] Urine by Test d">Urine Blood Medical strip </content>NEGA Center TIVE <content styleCode="Sarika lics"> (NEGATIVE )</content> Ketones NEGATIVE <content Saint [Mass/volume] styleCode="Torie Freya in Urine by d">Urine Medical Test strip Ketone Center </content>40 MG/DL<content styleCode="Sarika lics"> (NEGATIVE MG/DL)</conten t> Specific 1.015-1.02 <content [facility] gravity of 5 styleCode="Torie Freya Urine by Test d">Urine Medical strip Specific Center [place] </content>1.02 5 <content styleCode="Sarika lics"> (1.015-1.025 )</content> pH of Urine by 4.5-8.0 <content Saint Test strip styleCode="Torie Freya d">Urine pH Medical </content>6.0 Center <content styleCode="Sarika lics"> (4.5-8.0 )</content> Urobilinogen 0.2-1.0 Above high <content Saint [Units/volume] normal styleCode="Torie Freya in Urine by d">Urine Medical Test strip Urobilinogen Center </content>2.0 MG/DL H<content styleCode="Sarika lics"> (0.2-1.0 MG/DL)</conten t> Leukocyte NEGATIVE <content Saint esterase styleCode="Torie Freya [Presence] in d">Urine Medical Urine by Test Leukocyte Center strip </content>MODE RATE <content styleCode="Sarika lics"> (NEGATIVE )</content> Protein NEGATIVE <content Saint [Mass/volume] styleCode="Torie Freya in Urine by d">Urine Medical Test strip Protein Center </content>30 MG/DL<content styleCode="Sarika lics"> (NEGATIVE MG/DL)</conten t> Nitrite NEGATIVE <content Saint [Presence] in styleCode="Torie Freya Urine by Test d">Urine Medical strip Nitrite Center </content>NEGA TIVE <content styleCode="Sarika lics"> (NEGATIVE )</content> UNK 0-3 <content Saint styleCode="Torie Freya d">Urine Red Medical Blood Cell Center </content>0-3 HPF<content styleCode="Sarika lics"> (0-3 HPF)</content> UNK NONE SEEN <content styleCode="Torie Freya d">Coarse Medical Granular Cast Center </content>1-3 LPF<content styleCode="Sarika lics"> (NONE SEEN LPF)</content> UNK 0-3 <content styleCode="Torie Freya d">Urine White Medical Blood Cell Center </content>20 - 50 HPF<content styleCode="Sarika lics"> (0-3 HPF)</content> UNK NEGATIVE <content styleCode="Torie Freya d">Urine Medical Bacteria Center </content>MANY HPF<content styleCode="Sarika lics"> (NEGATIVE HPF)</content> UNK NONE SEEN <content styleCode="Torie Pillai d">Epithelial Medical Cell Center </content>10 - 20 HPF<content styleCode="Sarika lics"> (NONE SEEN HPF)</content> ID Date Data Source Microbiology.[id number] 12/29/2019 09:40:00 AM EDT [facility] 400 Name Value Range Interpretation Code Description Data Nadia rce(s) Supporting Document(s ) UNK <item><content [facility] styleCode="Bold"> Medical Cent er Culture Report </content>
<t able><tbody><tr>< td>Specimen Number:</td><td>[id number]</td></tr ><tr><td>Sample Collection Date/Time: </td><td> 0 9:40 AM</td></tr><tr>< td>Specimen Source:</td><td>U RINE</td></tr><tr ><td>Urine Culture:</td><td> Collection Plate Date: 12/29/2019 09:52 </td></tr><tr><td >Culture Status:</td><td>F inal </td></tr><tr><td >Culture Report:</td><td>N O GROWTH </td></tr></tbody ></table></item> UNK <item><content [facility] styleCode="Bold"> Medical Cent er Culture Status </content>
<t able><tbody><tr>< td>Specimen Number:</td><td>[id number]</td></tr ><tr><td>Sample Collection Date/Time: </td><td> 0 9:40 AM</td></tr><tr>< td>Specimen Source:</td><td>U RINE</td></tr><tr ><td>Culture Status:</td><td>F inal </td></tr><tr><td >Culture Report:</td><td>N O GROWTH </td></tr><tr><td >Urine Culture:</td><td> Collection Plate Date: 12/29/2019 09:52 </td></tr></tbody ></table></item> ID Date Data Source [id number] 12/28/2019 03:12:00 PM EDT MEDENT (Diges tive Disease & Nutrition [facility]) Name Value Range Interpretation Description Data Sup porting Code Source(s) Document(s ) Glucose 118 74-106 Above high MEDENT [Mass/volume] in mg/dL normal (Digestive Serum or Plasma Disease [facility] Nutrition [facility] ) Sodium 141 136-145 Normal (applies MEDENT [Moles/volume] in mmol/L to non-numeric (Digest tate Serum or Plasma results) Disease & Nutrition [facility] ) Potassium 4.2 3.5-5.3 Normal (applies MEDENT [Moles/volume] in mmol/L to non-numeric (Digest tate Serum or Plasma results) Disease & Nutrition [facility] ) Chloride 105 98-107 Normal (applies MEDENT [Moles/volume] in mmol/L to non-numeric (Digest tate Serum or Plasma results) Disease & Nutrition [facility] ) Carbon dioxide, 26 23-29 Normal (applies MEDENT total mmol/L to non-numeric (Digestive [Moles/volume] in results) Disease & Serum or Plasma Nutrition [facility] ) Laboratory test 14 6-18 Normal (applies MEDENT finding to non-numeric (Digestive (navigational results) Disease & concept) Nutrition [facility] ) Laboratory test 7 mg/dL 6-20 Normal (applies MEDENT finding to non-numeric (Digestive (navigational results) Disease & concept) Nutrition [facility] ) Creatinine 0.8 0.6-1.1 Normal (applies MEDENT [Mass/volume] in mg/dL to non-numeric (Digesti ve Serum or Plasma results) Disease & Nutrition [facility] ) Laboratory test 8.8 6.0-20. Normal (applies MEDENT finding 0 to non-numeric (Digestive (navigational results) Disease & concept) Nutrition [facility] ) Calcium 9.0 8.3-10. Normal (applies MEDENT [Mass/volume] in mg/dL 6 to non-numeric (Digesti ve Serum or Plasma results) Disease & Nutrition [facility] ) Protein 7.3 5.7-8.2 Normal (applies MEDENT [Mass/volume] in GM/DL to non-numeric (Digesti ve Serum or Plasma results) Disease & Nutrition [facility] ) Albumin 4.7 3.4-4.8 Normal (applies MEDENT [Mass/volume] in GM/DL to non-numeric (Digesti ve Serum or Plasma results) Disease & Nutrition [facility] ) Laboratory test 1.8 1.0-2.1 Normal (applies MEDENT finding to non-numeric (Digestive (navigational results) Disease & concept) Nutrition [facility] ) Bilirubin.total 1.2 0.3-1.2 Normal (applies MEDENT [Mass/volume] in mg/dL to non-numeric (Digesti ve Serum or Plasma results) Disease & Nutrition [facility] ) Alanine 502 U/L 8-35 Above high MEDENT aminotransferase normal (Digestive [Enzymatic Disease & activity/volume] in Nutrition Serum or Plasma [facility] ) Alkaline 143 U/L 41-147 Normal (applies MEDENT phosphatase to non-numeric (Digestive [Enzymatic results) Disease & activity/volume] in Nutrition Serum or Plasma [facility] ) Aspartate 326 U/L 10-48 Above high MEDENT aminotransferase normal (Digestive [Enzymatic Disease & activity/volume] in Nutrition Serum or Plasma [facility] ) ID Date Data Source [id number] 12/28/2019 03:12:00 PM EDT MEDENT (Diges tive Disease & Nutrition [facility]) Name Value Range Interpretation Description Data Sup porting Code Source(s) Document(s ) Laboratory 4.0 K/UL 4.0-10.0 Normal (applies MEDENT test finding to non-numeric (Digestive (navigational results) Disease & concept) Nutrition [facility]) Laboratory 4.31 3.80-5.1 Normal (applies MEDENT test finding MIL/UL 0 to non-numeric (Digestive (navigational results) Disease & concept) Nutrition [facility]) Laboratory 9.8 11.8-15. Below low normal MEDENT test finding GM/DL 3 (Digestive (navigational Disease & concept) Nutrition [facility]) Laboratory 33.2 % 35.0-45. Below low normal MEDENT test finding 0 (Digestive (navigational Disease & concept) Nutrition [facility]) Laboratory 77.0 FL 80.0-96. Below low normal MEDENT test finding 0 (Digestive (navigational Disease & concept) Nutrition [facility]) Laboratory 22.7 pg 27.0-34. Below low normal MEDENT test finding 0 (Digestive (navigational Disease & concept) [facility]) Laboratory 29.5 31.0-36. Below low normal MEDENT test finding GM/DL 0 (Digestive (navigational Disease & concept) Nutrition [facility]) THIS TEST RESULT HAS BEEN CONFIRMED BY R EPEAT ANALYSIS. Laboratory test finding 20.5 % 11.5-14.5 Above high MEDEN T (Digestive (navigational concept) normal Disease & Nutrition [facility] r) Laboratory test finding 305 K/UL 150-400 Normal (applies MEDENT (Digestive (navigational concept) to non-numeric Di sease & Nutrition results) [facility]) Laboratory test finding 12.5 FL 9.6-12.8 Normal (applies MEDENT (Digestive (navigational concept) to non-numeric Di sease & Nutrition results) [facility]) ID Date Data Source [id number] 05/22/2019 02:27:00 PM EDT [place] ([facility]) Name Value Range Interpretation Description Data Source(s ) Supporting Code Document(s ) Thyrotropin 1.220 TSH [place] ([facility] [Units/volume] uIU/mL [place] in Serum or Neighborhood Plasma by [facility]) Detection limit <= 0.05 mIU/L ID Date Data Source [id number] 05/22/2019 02:27:00 PM EDT SARAI ([facility]) Name Value Range Interpretation Description Data Source(s ) Supporting Code Document(s ) Thyroxine 1.01 T4,Free(Direct [place] ([facility] (T4) free ng/dL ) Juan [Mass/volume Neighborhood ] in [facility]) or Plasma ID Date Data Source [id number] 05/22/2019 02:27:00 PM EDT [place] ([facility]) Name Value Range Interpretation Description Data Source(s ) Supporting Code Document(s ) Cholesterol 205 Above high Cholesterol, SARAI [Mass/volume] mg/dL normal Total ([place] in Serum or [facility] Plasma [facility]) Triglyceride 127 Triglycerides [place] [Mass/volume] mg/dL ([place] in Serum or [facility] Plasma [facility]) Cholesterol in 59 HDL Cholesterol [place] HDL mg/dL ([place] [Mass/volume] [facility] in Serum or [facility]) Plasma Cholesterol in 2.1 LDL/HDL Ratio [place] LDL/Cholestero ratio ([place] l in HDL [Mass Neighborhood Ratio] in [facility]) Serum or Plasma Note: LDL/HDL Ratio Men Women 1/2 Avg.Risk 1.0 1.5 Avg.Risk 3.6 3.2 2X Avg.Risk 6.2 5.0 3X Avg.Risk 8.0 6.1 Laboratory comment N/A Comment: SARAI ([place] [facility] [Text] in [facility]) Cholesterol in LDL 121 mg/dL Above high LDL Cholesterol GREE NWAY ([facility] [Mass/volume] in normal Calc [facility] Serum or Plasma by Health Cent er) calculation Cholesterol in VLDL 25 mg/dL VLDL Cholesterol GRE ENWAY ([facility] [Mass/volume] in [facility] Serum or Plasma by Health Cent er) calculation ID Date Data Source [id number] 05/22/2019 02:27:00 PM EDT SARAI ([facility]) Name Value Range Interpretation Description Data Sup porting Code Source(s) Document(s ) Calcium 9.1 Calcium SARAI [Mass/volume] in mg/dL ([place] Serum or Plasma [facility]) Urea nitrogen 10 BUN SARAI [Mass/volume] in mg/dL ([place] Serum or [facility]) Albumin 4.5 Albumin SARAI [Mass/volume] in g/dL ([place] Serum or [facility]) Protein 7.4 Protein, SARAI [Mass/volume] in g/dL Total ([place] Serum or [facility]) Glucose 85 Glucose SARAI [Mass/volume] in mg/dL ([facility]) Alkaline 75 IU/L Alkaline SARAI phosphatase Phosphatase ([place] [Enzymatic Neighborhood activity/volume] [facility] in Serum or Plasma [place]) Aspartate 13 IU/L AST (SGOT) SARAI aminotransferase ([place] [Enzymatic Neighborhood activity/volume] [facility] in Serum or Plasma [place]) Bilirubin.total 0.5 Bilirubin, SARAI [Mass/volume] in mg/dL Total ([facility] or [facility]) Potassium 4.2 Potassium SARAI [Moles/volume] in mmol/L ([facility] Serum or [facility]) Sodium 139 Sodium SARAI [Moles/volume] in mmol/L ([facility] Serum [facility]) Chloride 102 Chloride SARAI [Moles/volume] in mmol/L ([facility] Serum [facility]) Creatinine 0.67 Creatinine SARAI [Mass/volume] in mg/dL ([facility]) Urea 15 BUN/Creatinin SARAI nitrogen/Creatinin e Ratio ([facility] on e [Mass Ratio] in [facility] Serum or [facility] Globulin 2.9 Globulin, SARAI [Mass/volume] in g/dL Total ([place] Serum by [facility]) Carbon dioxide, 24 Carbon SARAI total mmol/L Dioxide, ([place] [Moles/volume] in Total [facility] Serum or [facility] Alanine 23 IU/L ALT (SGPT) SARAI aminotransferase ([place] [Enzymatic Neighborhood activity/volume] Health in Serum or Plasma Center) eGFR If Africn Am 130 eGFR If SARAI mL/min/ Africn Am ([address]) Albumin/Globulin 1.6 A/G Ratio SARAI [Mass Ratio] in ([place] Serum or Plasma [facility]) eGFR If NonAfricn 113 eGFR If SARAI Am mL/min/ NonAfricn Am ([address]) Procedure Social History Code Duration Value Status Description Data Source(s ) Smoking 01/31/2020 Never smoked completed Never smoked SARAI ( [facility] 02:56:42 PM EDT tobacco tobacco (finding) Ve [facility] ([facility]) [facility]) Smoking 12/29/2019 Denies Ever completed Denies Ever Smoked [facility] 01:11:00 PM EDT Smoked Medical C enter Smoking 12/29/2019 Denies Ever completed Denies Ever Smoked [facility] 08:58:00 AM EDT Smoked Medical C enter Smoking 12/29/2019 Denies Ever completed Denies Ever Smoked [facility] 08:38:00 AM EDT Smoked Medical C enter Smoking 12/28/2019 Patient has completed Patient has never MEDENT (Digestive 12:00:00 AM EDT never smoked smoked Disease & Nutrition Center [facility]) Vital Signs ID Date Data Source UNK Name Value Range Interpretation Code Description Data Source(s) Body surface 1.74 m2 1.74 m2 SARAI ([facility] area Derived [place] from [facility]) Body mass index 30.5 kg/m2 30.5 kg/m2 [place] ([facility] (BMI) [Ratio] [facility]) Body weight 163 [lb_av] 163 [lb_av] [place] ([facility]) Body height 61.25 61.25 [in_us] [place] ( [facility] [in_us] [facility]) PhenX - pain, 0 0 SARAI ([facility] abdominal - type [place] and [facility]) Patient here for result Body surface area Derived from 1.74 m2 1.74 m2 [place] ([facility]) Patient here for result Body mass index (BMI) 30.5 kg/m2 30.5 kg/m2 GRE [place] ([place] [Ratio] [facility]) Patient here for result Body weight 163 [lb_av] 163 [lb_av] SARAI ([facility]) Patient here for result Body height 61.25 [in_us] 61.25 [in_us] KETAN Peck ([facility]) Patient here for result Body temperature 98 [degF] 98 [degF] SARAI ([facility]) Patient here for result Heart rate 81 /min 81 /min SARAI ([facility]) Patient here for result Diastolic blood pressure 69 mm[Hg] 69 mm[Hg] SARAI ([facility]) Patient here for result Systolic blood pressure 95 mm[Hg] 95 mm[Hg] G REENWAY ([facility]) Patient here for result Body surface area 1.70 m2 1.70 m2 [facility] ([place] Derived from [facility]) Body mass index (BMI) 29.2 kg/m2 29.2 kg/m2 CYNDI [facility] ([place] [[facility]] [facility]) Body weight 156 [lb_av] 156 [lb_av] SARAI ([facility]) Body height 61.25 [in_us] 61.25 [in_us] WILDWOODANAMARIA Peck ([facility]) Body height 61.25 [in_us] 61.25 [in_us] [facility] ([facility]) Pt is here for Pelvic Non Obstetrical Ul trasound Body height 61.25 [in_us] 61.25 [in_us] [facility] ([facility]) Pt is here for Trasvaginal Ultrasound PhenX - pain, abdominal - type and 0 0 SARAI ([facility]) Pt here for Test Results Body surface area Derived from 1.71 m2 1.71 m2 [place] ([facility]) Pt here for Test Results Body mass index (BMI) 29.3 kg/m2 29.3 kg/m2 [facility] ([place] [[facility]] [facility]) Pt here for Test Results Body weight 156.125 [lb_av] 156.125 [lb_av] [facility] ([facility]) Pt here for Test Results Body height 61.25 [in_us] 61.25 [in_us] [facility] Y ([facility]) Pt here for Test Results Body temperature 97.4 [degF] 97.4 [degF] GREENW AY ([facility]) Pt here for Test Results Heart rate 67 /min 67 /min [place] ([facility]) Pt here for Test Results Diastolic blood pressure 67 mm[Hg] 67 mm[Hg] [place] ([facility]) Pt here for Test Results Systolic blood pressure 99 mm[Hg] 99 mm[Hg] [facility] ([facility]) Pt here for Test Results PhenX - pain, abdominal - type and 0 0 [place] ([facility]) Patient is here for test results. Body surface area Derived from 1.71 m2 1.71 m2 [place] ([facility]) Patient is here for test results. Body mass index (BMI) 29.4 kg/m2 29.4 kg/m2 [facility] ([place] [Ratio] [facility]) Patient is here for test results. Body weight 157.025 [lb_av] 157.025 [lb_av] [facility] ([facility]) Patient is here for test results. Body height 61.25 [in_us] 61.25 [in_us] [facility] Liv ([facility]) Patient is here for test results. Body temperature 98.8 [degF] 98.8 [degF] JOSE ARMANDOW ALYX ([facility]) Patient is here for test results. Heart rate rhythm 1 1 [facility] ([facility]) Patient is here for test results. Heart rate 71 /min 71 /min [place] ([facility]) Patient is here for test results. Diastolic blood pressure 67 mm[Hg] 67 mm[Hg] [place] ([facility]) Patient is here for test results. Systolic blood pressure 107 mm[Hg] 107 mm[Hg] [facility] ([facility]) Patient is here for test results. PhenX - pain, abdominal - type and 0 0 [place] ([facility]) Pt is here for Abdomen sono limited, sin gle organ Body height 61.25 [in_us] 61.25 [in_us] [place] Y ([facility]) Pt is here for Abdomen sono limited, sin gle organ PhenX - pain, abdominal - type and 0 0 SARAI ([facility]) Pt here for issure with the period pt bl eeding too much and stomach feels bloatedLMP 01-06-2020 Body surface area Derived from 1.71 m2 1.71 m2 [place] ([facility]) Pt here for issure with the period pt bl eeding too much and stomach feels bloatedLMP 01-06-2020 Body mass index (BMI) 29.6 kg/m2 29.6 kg/m2 GRE EN[place]AY ([place] [[facility]] [facility]) Pt here for issure with the period pt bl eeding too much and stomach feels bloatedLMP 01-06-2020 Body weight 158 [lb_av] 158 [lb_av] [facility] ([facility]) Pt here for issure with the period pt bl eeding too much and stomach feels bloatedLMP 01-06-2020 Body height 61.25 [in_us] 61.25 [in_us] WILDWOODANAMARIA Y ([facility]) Pt here for issure with the period pt bl eeding too much and stomach feels bloatedLMP 01-06-2020 Body temperature 98.4 [degF] 98.4 [degF] WILDWOODW AY ([facility]) Pt here for issure with the period pt bl eeding too much and stomach feels bloatedLMP 01-06-2020 Heart rate 71 /min 71 /min [place] ([facility]) Pt here for issure with the period pt bl eeding too much and stomach feels bloatedLMP 01-06-2020 Diastolic blood pressure 74 mm[Hg] 74 mm[Hg] [place] ([facility]) Pt here for issure with the period pt bl eeding too much and stomach feels bloatedLMP 01-06-2020 Systolic blood pressure 116 mm[Hg] 116 mm[Hg] G REENWAY ([facility]) Pt here for issure with the period pt bl eeding too [facility] and [facility] PhenX - pain, abdominal - type and 6 6 [place] ([facility] protocol [facility]) Pt presents today for CPEPt c/o abdomina l pain for 2 months Body surface area Derived from 1.73 m2 1.73 m2 [place] ([facility]) Pt presents today for CPEPt c/o abdomina l pain for 2 months Body mass index (BMI) 30.2 kg/m2 30.2 kg/m2 GRE ENWAY ([place] [Ratio] [facility] [place] Pt presents today for CPEPt c/o abdomina l pain for 2 months Body weight 161 [lb_av] 161 [lb_av] [place] ( [facility]) Pt presents today for CPEPt c/o abdomina l pain for 2 months Body height 61.25 [in_us] 61.25 [in_us] KETAN Y ([facility]) Pt presents today for CPEPt c/o abdomina l pain for 2 months Body temperature 98.8 [degF] 98.8 [degF] WILDWOODW AY ([facility]) Pt presents today for CPEPt c/o abdomina l pain for 2 months Heart rate 75 /min 75 /min [place] ([facility]) Pt presents today for CPEPt c/o abdomina l pain for 2 months Diastolic blood pressure 70 mm[Hg] 70 mm[Hg] [place] ([facility]) Pt presents today for CPEPt c/o abdomina l pain for 2 months Systolic blood pressure 103 mm[Hg] 103 mm[Hg] [facility]) Pt presents today for CPEPt c/o abdomina l pain for 2 months Body mass index (BMI) 29.9 kg/m2 29.9 kg/m2 MED ENT (Digestive Disease & [Ratio] Nutrition Cent [facility]) Body weight 158.00 [lb_av] 158.00 [lb_av] MEDEN T (Digestive Disease & Nutrition Cent er [facility]) Body height 61 [in_i] 61 [in_i] MEDENT (Diges tive Disease & Nutrition Cent er [facility]) 5'1" Respiratory rate 13 /min 13 /min MEDENT ( Digestive Disease & Nutrition Ce [facility]) Heart rate 92 /min 92 /min MEDENT (Digest tate Disease & Nutrition [facility]) Diastolic blood pressure 58 mm[Hg] 58 mm[Hg] MEDENT (Digestive Disease & Nutrition Ce [facility]) Systolic blood pressure 128 mm[Hg] 128 mm[Hg] M EDENT (Digestive Disease & Nutrition [facility]) Body weight Measured 65.302332 kg 65.762578 kg [facility] Body temperature 36.552024 Alison 36.193113 Alison [facility] Respiratory rate 18 /min 18 /min [facility] Oxygen saturation in 99 % 99 % [facility] Arterial blood by Pulse C enter oximetry Heart rate 79 /min 79 /min [facility] Body height 154.293783 cm 154.441149 cm [facility] Diastolic blood pressure 73 mm[Hg] 73 mm[Hg] [facility] Systolic blood pressure 126 mm[Hg] 126 mm[Hg] [facility] Body mass index (BMI) 27.0 kg/m2 27.0 kg/m2 [facility] [Ratio] [place] Body mass index (BMI) 31.9 kg/m2 31.9 kg/m2 MED ENT (Digestive Disease [Ratio] & Nutrition [facility]) Body weight 169.00 [lb_av] 169.00 [lb_av] MEDEN T (Digestive Disease & Nutrition [facility]) Body height 61 [in_i] 61 [in_i] MEDENT (Diges tive Disease & Nutrition [facility]) 5'1" Respiratory rate 12 /min 12 /min MEDENT ( Digestive Disease & Nutrition [facility]) Heart rate 59 /min 59 /min MEDENT (Digest tate Disease & Nutrition [facility]) Diastolic blood pressure 62 mm[Hg] 62 mm[Hg] MEDENT (Digestive Disease & Nutrition [facility]) Systolic blood pressure 122 mm[Hg] 122 mm[Hg] M EDENT (Digestive Disease & Nutrition [facility]) Diastolic blood pressure 80 mm[Hg] 80 mm[Hg] eCW2 ([facility]) Systolic blood pressure 121 mm[Hg] 121 mm[Hg] e CW2 ([facility]) Body mass index (BMI) 35.66 kg/m2 35.66 kg/m2 e CW2 ([facility] [Ratio[facility]) Body weight Measured 195 [lb_av] 195 [lb_av] eC W2 ([facility]) Body height 62 [in_us] 62 [in_us] eCW2 ([facility]) Diastolic blood pressure 73 mm[Hg] 73 mm[Hg] eCW2 ([facility]) Systolic blood pressure 112 mm[Hg] 112 mm[Hg] e CW2 ([facility]) Body mass index (BMI) 36.17 kg/m2 36.17 kg/m2 e CW2 ([facility] [Ratio] [facility]) Body weight Measured 197.8 [lb_av] 197.8 [lb_av ] eCW2 ([facility]) Body height 62 [in_us] 62 [in_us] eCW2 ([facility]) Diastolic blood pressure 80 mm[Hg] 80 mm[Hg] eCW2 ([facility]) Systolic blood pressure 120 mm[Hg] 120 mm[Hg] e CW2 ([facility]) Body mass index (BMI) 36.76 kg/m2 36.76 kg/m2 e CW2 ([facility] - [Ratio] [facility] [employer] [facility]) Body weight Measured 201 [lb_av] 201 [lb_av] eC W2 ([facility]) Body height 62 [in_us] 62 [in_us] eCW2 ([facility]) PhenX - pain, abdominal - 0 0 SARAI ([facility]) protocol Pt presents today with c/o dizziness and feeling tired for 2 weeksPt states that wants to check for anemia Body surface area Derived from 1.84 m2 1.84 m2 SARAI ([facility]) Pt presents today with c/o dizziness and feeling tired for 2 weeksPt states that wants to check for anemia Body mass index (BMI) 36.5 kg/m2 36.5 kg/m2 CYNDI LUIGI ([place] [[facility]] [facility]) Pt presents today with c/o dizziness and feeling tired for 2 weeksPt states that wants to check for anemia Body weight 190 [lb_av] 190 [lb_av] SARAI ( [facility]) Pt presents today with c/o dizziness and feeling tired for 2 weeksPt states that wants to check for anemia Body height 60.5 [in_us] 60.5 [in_us] SARAI ([facility]) Pt presents today with c/o dizziness and feeling tired for 2 weeksPt states that wants to check for anemia Body temperature 98.9 [degF] 98.9 [degF] REYMUNDO WISDOM ([facility]) Pt presents today with c/o dizziness and feeling tired for 2 weeksPt states that wants to check for anemia Heart rate 82 /min 82 /min [facility] ([facility]) Pt presents today with c/o dizziness and feeling tired for 2 weeksPt states that wants to check for anemia Diastolic blood pressure 77 mm[Hg] 77 mm[Hg] SARAI ([facility]) Pt presents today with c/o dizziness and feeling tired for 2 weeksPt states that wants to check for anemia Systolic blood pressure 116 mm[Hg] 116 mm[Hg] G LINDA ([facility]) Pt presents today with c/o dizziness and feeling tired for 2 weeksPt states that wants to check for anemia Patient Treatment Plan of Care Planned Activity Planned Date Details Description Data Source (s) lansoprazole 30 MG 02/20/2020 SARAI ([place] Delayed Release Oral 12:00:00 AM [facility]) Clarithromycin 500 MG 02/20/2020 REYMUNDO AY ([place] Oral Tablet 12:00:[address] [facility]) Amoxicillin 500 MG Oral 02/20/2020 BETSEY NWALYX ([place] Capsule 12:00:[address] [facility]) Pcniftytx-Hkphcqbdg-Yjshb 02/14/2020 GR EENWAY ([place] praz Oral Miscellaneous 12:00:00 AM EDT [facility]) Zofran (Ondansetron) 12/25/2019 [facility] 11:07:37 PM [facility]T [facility] Pantoprazole (Proton 12/25/2019 [facility] 11:07:35 PM [facility]T [facility] Mylanta(mag hydrox/a 12/25/2019 [facility] 10:56:19 PM EDT [facility] Lidocaine Viscous So 12/25/2019 [facility] 10:56:19 PM [facility]T [facility] Pepcid (Famotidine) 12/25/2019 [facility] 10:56:19 PM EDT [facility] Mylanta(mag hydrox/a 12/25/2019 [facility] 03:49:14 AM EDT [facility] Lidocaine Viscous So 12/25/2019 [facility] 03:49:14 AM [facility]T [facility] Pepcid (Famotidine) 12/25/2019 [facility] 03:49:14 AM EDT [facility] Multivitamins Oral 05/23/2019 SARAI ([place] Capsule 12:00:[address] [facility]) Tricor 48MG Oral Tablet 05/22/2019 GREE NWAY ([place] 12:00:[address] [facility]) Tricor 48MG Oral Tablet 01/23/2019 GREE NWAY ([place] 12:00:[address] [facility]) ferrous sulfate 325 MG 01/23/[address] ([place] Oral Tablet 12:00:[address] [facility]) Ascorbic Acid 500 MG Oral 01/23/2019 GR EENWAY ([place] Tablet 12:00:[address] [facility]) Ergocalciferol [id number] UNT 01/23/2019 GRE ENWAY ([place] Oral Capsule 12:00:[address] [facility])
[2020-05-30 06:36] VITALS: TEMP 98.3; BMI 30.1
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
[2020-05-30 12:28] VITALS: BP 127/88
[2020-06-01 18:35] VITALS: PULSE 82
== END 2020-05-30 12:27 | disposition home or self-care (01) ==
LOC: JER 06:06
DX: G50.1 Atypical facial pain (principal); Y04.0XXA Assault by unarmed brawl or fight, initial encounter
CPT/HCPCS: 70450-TC; 70486-TC; 72125-TC; 99285-25

== ENCOUNTER 2020-08-17 15:24 | Emergency (ER) | payer OTHER | END 2020-08-17 17:06 | disposition home or self-care (01) | LOC: JERFT 15:24 | DX: Z48.02 Encounter for removal of sutures (principal) | CPT/HCPCS: 99281-25 ==

== ENCOUNTER 2020-10-01 11:13 | Emergency (ER) | payer OTHER ==
[2020-10-01 11:19] VITALS: TEMP 98.1; BMI 28.3
[2020-10-01] MEDS ORDERED: MAG HYDROX/AL HYDROX/SIMETH 30 ML UNIT-DOSE CUP PO ONE (13:57)
[2020-10-01] MEDS ORDERED: ONDANSETRON *ODT* 4 MG TABLET SL ONE (13:57)
[2020-10-01] MEDS ORDERED: MAG HYDROX/AL HYDROX/SIMETH 30 ML UNIT-DOSE CUP ONE (14:10)
[2020-10-01] MEDS ORDERED: ONDANSETRON *ODT* 4 MG TABLET ONE (14:10)
[2020-10-01] MEDS ORDERED: ACETAMINOPHEN 325 MG TABLET (FP) PO ONE (14:23)
[2020-10-01] MEDS ORDERED: FAMOTIDINE 20 MG/50 ML IVPB 20 MG/50 ML MG IVPB ONE ×2 (14:23→14:43)
[2020-10-01] MEDS ORDERED: SODIUM CHLORIDE 0.9% 500 ML INFUS.BAG IV ONE (14:23)
[2020-10-01] MEDS ORDERED: ACETAMINOPHEN 325 MG TABLET (FP) ONE (14:43)
[2020-10-01 15:10] LABS: BASO % 0.5 % (0-2.0); EOS % 0.5 % (0-4.5); HEMATOCRIT 33.1 % (32.4-45.2); HEMOGLOBIN 10.7 GM/dL (10.7-15.3); LYMPH % 19.5 % (8-40); MCH 23.5 pg (25.7-33.7); MCHC 32.4 g/dl (32.0-36.0); MEAN CELL VOLUME 72.6 fl (80-96); MEAN PLT VOLUME 8.9 fl (7.5-11.1); MONO % 4.8 % (3.8-10.2); NEUT % 74.7 % (42.8-82.8); PLATELET COUNT 251 K/MM3 (134-434); RBC 4.56 M/mm3 (3.60-5.2); RDW 18.5 % (11.6-15.6); WHITE BLOOD COUNT 7.4 K/mm3 (4.0-10.0)
[2020-10-01 15:26] LABS: CHLORIDE 113 mmol/L (98-107); POTASSIUM 4.5 mmol/L (3.5-5.1); SODIUM 143 mmol/L (136-145)
[2020-10-01 15:41] LABS: ALBUMIN 3.8 g/dl (3.4-5.0); ALK PHOS 95 U/L (45-117); ANION GAP 7 MMOL/L (8-16); BILIRUBIN,TOTAL 0.4 mg/dL (0.2-1); BLOOD UREA NITROGEN 12.1 mg/dL (7-18); CALCIUM 8.6 mg/dL (8.5-10.1); CO2 24 mmol/L (21-32); CREATININE 0.8 mg/dL (0.55-1.3); GLUCOSE,RANDOM 102 mg/dL (74-106); LIPASE 165 U/L (73-393); SGOT/AST 11 U/L (15-37); SGPT/ALT 40 U/L (13-61); TOT PROT 8.1 g/dl (6.4-8.2)
[2020-10-01 17:10] VITALS: BP 112/67; PULSE 87
== END 2020-10-01 17:14 | disposition home or self-care (01) ==
LOC: JER 11:13
PROC: 3E033GC Introduction of Other Therapeutic Substance into Peripheral Vein, Percutaneous Approach (ICD-10-PCS; principal; 2020-10-01)
DX: K52.9 Noninfective gastroenteritis and colitis, unspecified (principal); K21.9 Gastro-esophageal reflux disease without esophagitis
CPT/HCPCS: 36415; 80053; 83690; 84484; 84703; 85025; 93005; 93010; 99284-25; Q0162

== ENCOUNTER 2022-04-04 10:56 | Emergency (ER) | payer OTHER ==
[2022-04-04 11:03] VITALS: BP 173/83; PULSE 124; RESP 20; TEMP 98.7; BMI 34.4
[2022-04-04] MEDS ORDERED: ACETAMINOPHEN 1000 MG/100 ML BAG IVPB ONE (11:46)
[2022-04-04] MEDS ORDERED: ONDANSETRON 4 MG/2 ML VIAL IVPUSH ONE (11:46)
[2022-04-04] MEDS ORDERED: SODIUM CHLORIDE 1,000 ML IV STA ×2 (11:46→14:07)
[2022-04-04] MEDS ORDERED: FAMOTIDINE 20 MG/50 ML IVPB 20 MG/50 ML MG IVPB ONE ×2 (11:47→11:56)
[2022-04-04] MEDS ORDERED: ONDANSETRON 4 MG/2 ML VIAL ONE (11:56)
[2022-04-04] MEDS ORDERED: ACETAMINOPHEN INJECTION 100 ML IVPB ONE (11:56)
[2022-04-04 12:27] LABS: BASO % 0.3 % (0-2.0); EOS % 1.3 % (0-4.5); HEMATOCRIT 29.6 % (32.4-45.2); HEMOGLOBIN 9.8 GM/dL (10.7-15.3); LYMPH % 32.3 % (8-40); MCH 21.6 pg (25.7-33.7); MCHC 33.1 g/dl (32.0-36.0); MEAN CELL VOLUME 65.3 fl (80-96); MEAN PLT VOLUME 8.6 fl (7.5-11.1); MONO % 9.1 % (3.8-10.2); PLATELET COUNT 261 10^3/uL (134-434); RBC 4.54 M/mm3 (3.60-5.2); RDW 17.2 % (11.6-15.6); WHITE BLOOD COUNT 5.9 K/mm3 (4.0-10.0)
[2022-04-04] MEDS ORDERED: METOCLOPRAMIDE HCL INJECTION 10 MG/2 ML VIAL IVPB ONE (12:46)
[2022-04-04 12:49] LABS: ALBUMIN 3.8 g/dl (3.4-5.0); CALCIUM 8.4 mg/dL (8.5-10.1)
[2022-04-04 12:50] LABS: BLOOD UREA NITROGEN 10.9 mg/dL (7-18)
[2022-04-04 12:53] LABS: CREATININE 0.7 mg/dL (0.55-1.3)
[2022-04-04] MEDS ORDERED: METOCLOPRAMIDE HCL INJECTION 10 MG/2 ML VIAL ONE (12:53)
[2022-04-04 12:54] LABS: BILIRUBIN,TOTAL 0.3 mg/dL (0.2-1); TOT PROT 8.1 g/dl (6.4-8.2)
[2022-04-04 13:53] LABS: PH,URINE 5.5 (5.0-8.0); URINE APPEARANCE CLEAR; URINE BILIRUBIN NEGATIVE (NEGATIVE); URINE COLOR YELLOW; URINE GLUCOSE (UA) NEGATIVE (NEGATIVE); URINE KETONE NEGATIVE (NEGATIVE); URINE LEUK ESTERASE NEGATIVE (NEGATIVE); URINE NITRITE NEGATIVE (NEGATIVE); URINE PROTEIN NEGATIVE (NEGATIVE); URINE UROBILINOGEN 0.2 mg/dL (0.2-1.0)
== END 2022-04-04 16:20 | disposition home or self-care (01) ==
LOC: JER 10:56
PROC: 3E033GC Introduction of Other Therapeutic Substance into Peripheral Vein, Percutaneous Approach (ICD-10-PCS; principal; 2022-04-04)
DX: K52.9 Noninfective gastroenteritis and colitis, unspecified (principal)
CPT/HCPCS: 36415; 80053; 81003; 83690; 84703; 85025; 87086; 99284-25

== ENCOUNTER 2022-08-15 19:19 | Emergency (ER) | payer OTHER ==
[2022-08-15 19:36] VITALS: BP 126/73; PULSE 93; RESP 20; TEMP 98.5; BMI 34.9
[2022-08-15] MEDS ORDERED: KETOROLAC TROMETHAMINE 15 MG/ML VIAL IVPUSH ONE (21:01)
[2022-08-15] MEDS ORDERED: ONDANSETRON 4 MG/2 ML VIAL IVPUSH ONE (21:01)
[2022-08-15] MEDS ORDERED: FAMOTIDINE 20 MG/50 ML IVPB 20 MG/50 ML MG IVPB ONE ×2 (21:02→21:16)
[2022-08-15] MEDS ORDERED: SODIUM CHLORIDE 0.9% 500 ML INFUS.BAG IV ONE (21:02)
[2022-08-15] MEDS ORDERED: KETOROLAC TROMETHAMINE 15 MG/ML VIAL ONE (21:16)
[2022-08-15] MEDS ORDERED: ONDANSETRON 4 MG/2 ML VIAL ONE (21:17)
[2022-08-15 22:08] LABS: BASO % 0.3 % (0-2.0); EOS % 0.4 % (0-4.5); HEMATOCRIT 31.6 % (32.4-45.2); HEMOGLOBIN 9.9 GM/dL (10.7-15.3); LYMPH % 17.7 % (8-40); MCH 21.4 pg (25.7-33.7); MCHC 31.3 g/dl (32.0-36.0); MEAN CELL VOLUME 68.5 fl (80-96); MEAN PLT VOLUME 8.9 fl (7.5-11.1); MONO % 6.9 % (3.8-10.2); NEUT % 74.7 % (42.8-82.8); PLATELET COUNT 288 10^3/uL (134-434); RBC 4.62 M/mm3 (3.60-5.2); RDW 16.7 % (11.6-15.6); WHITE BLOOD COUNT 9.6 K/mm3 (4.0-10.0)
[2022-08-15 22:14] LABS: EPI CELLS >36 /uL (0-25.1); HCG,QUALITATIVE URINE Negative; HYALINE CASTS 1 /uL (0-3.1); PH,URINE 5.5 (5.0-8.0); URINE APPEARANCE CLOUDY; URINE BACTERIA 2509 /uL (0-1359); URINE BILIRUBIN NEGATIVE (NEGATIVE); URINE COLOR YELLOW; URINE GLUCOSE (UA) NEGATIVE (NEGATIVE); URINE KETONE NEGATIVE (NEGATIVE); URINE LEUK ESTERASE 1+ (NEGATIVE); URINE NITRITE NEGATIVE (NEGATIVE); URINE PROTEIN TRACE (NEGATIVE); URINE UROBILINOGEN 0.2 mg/dL (0.2-1.0); URINE WBC 122 /uL (0-25.8)
[2022-08-15 22:18] LABS: URINE RBC 23 /uL (0-23.9)
[2022-08-15 22:24] LABS: ALBUMIN 3.8 g/dl (3.4-5.0); BLOOD UREA NITROGEN 10.7 mg/dL (7-18)
[2022-08-15 22:27] LABS: CREATININE 0.7 mg/dL (0.55-1.3)
[2022-08-15 22:28] LABS: BILIRUBIN,TOTAL 0.6 mg/dL (0.2-1); TOT PROT 8.2 g/dl (6.4-8.2)
[2022-08-16 00:30] LABS: ANISOCYTOSIS 2+; MACROCYTOSIS 0; OVALOCYTE 2+
== END 2022-08-15 22:55 | disposition home or self-care (01) ==
LOC: JER 19:19
PROC: 3E033GC Introduction of Other Therapeutic Substance into Peripheral Vein, Percutaneous Approach (ICD-10-PCS; principal; 2022-08-15)
PROC: 3E0333Z Introduction of Anti-inflammatory into Peripheral Vein, Percutaneous Approach (ICD-10-PCS; 2022-08-15)
PROC: 3E033GC Introduction of Other Therapeutic Substance into Peripheral Vein, Percutaneous Approach (ICD-10-PCS; 2022-08-15)
DX: N30.00 Acute cystitis without hematuria (principal)
CPT/HCPCS: 0241U-QW; 36415; 80053; 81003; 83690; 84703; 85025; 87086; 99284-25

== ENCOUNTER 2022-12-11 05:59 | Emergency (ER) | payer OTHER ==
[2022-12-11 06:05] VITALS: BP 143/85; RESP 19; TEMP 98.2; BMI 39.4
[2022-12-11] MEDS ORDERED: SODIUM CHLORIDE 0.9% 500 ML INFUS.BAG IV ONE (06:37)
[2022-12-11] MEDS ORDERED: METOCLOPRAMIDE HCL INJECTION 10 MG/2 ML VIAL IVPB ONE (06:37)
[2022-12-11] MEDS ORDERED: ACETAMINOPHEN 1000 MG/100 ML BAG IVPB ONE (06:37)
[2022-12-11 06:43] LABS: BASO % 0.5 % (0-2.0); EOS % 1.5 % (0-4.5); HEMATOCRIT 30.8 % (32.4-45.2); HEMOGLOBIN 10.1 GM/dL (10.7-15.3); LYMPH % 33.8 % (8-40); MCH 21.8 pg (25.7-33.7); MCHC 32.8 g/dl (32.0-36.0); MEAN CELL VOLUME 66.6 fl (80-96); MEAN PLT VOLUME 8.6 fl (7.5-11.1); MONO % 10.7 % (3.8-10.2); NEUT % 53.5 % (42.8-82.8); PLATELET COUNT 283 10^3/uL (134-434); RBC 4.62 M/mm3 (3.60-5.2); RDW 17.4 % (11.6-15.6); WHITE BLOOD COUNT 5.6 K/mm3 (4.0-10.0)
[2022-12-11] MEDS ORDERED: METOCLOPRAMIDE HCL INJECTION 10 MG/2 ML VIAL ONE (06:47)
[2022-12-11 06:51] LABS: INR 0.99 (0.83-1.09); PROTHROMBIN TIME (PATIENT) 11.5 SEC (9.7-13.0)
[2022-12-11 06:54] LABS: ACTIVATED PTT 30.2 SECONDS (25.2-36.5)
[2022-12-11 07:03] LABS: ALBUMIN 3.7 g/dl (3.4-5.0); BLOOD UREA NITROGEN 6.8 mg/dL (7-18); CALCIUM 8.8 mg/dL (8.5-10.1)
[2022-12-11 07:06] LABS: CREATININE 0.7 mg/dL (0.55-1.3)
[2022-12-11 07:08] LABS: BILIRUBIN,TOTAL 0.3 mg/dL (0.2-1); TOT PROT 8.2 g/dl (6.4-8.2)
[2022-12-11] MEDS ORDERED: ACETAMINOPHEN INJECTION 100 ML IVPB ONE (07:36)
[2022-12-11 08:43] LABS: ANISOCYTOSIS 2+; MACROCYTOSIS 0
[2022-12-11] MEDS ORDERED: ONDANSETRON 4 MG/2 ML VIAL IVPUSH ONE (09:24)
[2022-12-11] MEDS ORDERED: ONDANSETRON 4 MG/2 ML VIAL ONE (09:36)
[2022-12-11 10:20] VITALS: PULSE 95
== END 2022-12-11 11:00 | disposition home or self-care (01) ==
LOC: JER 05:59
PROC: 3E033GC Introduction of Other Therapeutic Substance into Peripheral Vein, Percutaneous Approach (ICD-10-PCS; principal; 2022-12-11)
PROC: 3E033GC Introduction of Other Therapeutic Substance into Peripheral Vein, Percutaneous Approach (ICD-10-PCS; 2022-12-11)
DX: R51.9 Headache, unspecified (principal); R06.02 Shortness of breath; R00.0 Tachycardia, unspecified; Y90.5 Blood alcohol level of 100-119 mg/100 ml; Z20.822 Contact with and (suspected) exposure to COVID-19
CPT/HCPCS: 0241U-QW; 36415; 70450-TC; 71045-TC-FY; 71046-TC-FY; 80053; 80307; 84484; 84703; 85025; 85379; 85610; 85730; 86850; 86900; 86901; 93005; 93010; 99285-25

== ENCOUNTER 2024-07-22 12:18 | Inpatient (IN) | payer OTHER ==
[2024-07-22 14:06] LABS: BASO % 0.4 % (0-2.0); EOS % 1.4 % (0-4.5); EPI CELLS 15 /uL (0-25.1); HEMATOCRIT 23.4 % (32.4-45.2); HYALINE CASTS 0 /uL (0-3.1); LYMPH % 20.1 % (8-40); MEAN CELL VOLUME 56.3 fl (80-96); MEAN PLT VOLUME 8.3 fl (7.5-11.1); MONO % 7.1 % (3.8-10.2); PH,URINE 5.5 (5.0-8.0); PLATELET COUNT 220 10^3/uL (134-434); RBC 4.17 M/mm3 (3.60-5.2); RDW 17.7 % (11.6-15.6); URINE APPEARANCE CLEAR; URINE BACTERIA 404 /uL (0-1359); URINE BILIRUBIN NEGATIVE (NEGATIVE); URINE COLOR YELLOW; URINE GLUCOSE (UA) NEGATIVE (NEGATIVE); URINE KETONE NEGATIVE (NEGATIVE); URINE LEUK ESTERASE TRACE (NEGATIVE); URINE NITRITE NEGATIVE (NEGATIVE); URINE PROTEIN NEGATIVE (NEGATIVE); URINE UROBILINOGEN 0.2 mg/dL (0.2-1.0); URINE WBC 33 /uL (0-25.8); WHITE BLOOD COUNT 6.3 K/mm3 (4.0-10.0)
[2024-07-22 14:07] LABS: MCH 16.9 pg (25.7-33.7)
[2024-07-22 14:09] LABS: INR 1.02 (0.83-1.09); PROTHROMBIN TIME (PATIENT) 11.7 SEC (9.7-13.0)
[2024-07-22 14:10] LABS: URINE RBC 32 /uL (0-23.9)
[2024-07-22 14:12] LABS: ACTIVATED PTT 31.1 SECONDS (25.2-36.5)
[2024-07-22 14:35] LABS: POTASSIUM 4.4 mmol/L (3.5-5.1)
[2024-07-22 14:37] LABS: ANISOCYTOSIS 2+; CALCIUM 8.5 mg/dL (8.5-10.1); MACROCYTOSIS 0; OVALOCYTE 1+
[2024-07-22 14:38] LABS: ALBUMIN 3.4 g/dl (3.4-5.0); BLOOD UREA NITROGEN 16.5 mg/dL (7-18)
[2024-07-22 14:41] LABS: CREATININE 0.7 mg/dL (0.55-1.3)
[2024-07-22 14:42] LABS: BILIRUBIN,TOTAL 0.4 mg/dL (0.2-1)
[2024-07-22 14:43] LABS: TOT PROT 7.4 g/dl (6.4-8.2)
[2024-07-22] MEDS: SODIUM CHLORIDE 1,000 ML IV SCH (22:52)
[2024-07-23 00:36] VITALS: RESP 18; BMI 34.2
[2024-07-23 09:27] LABS: BASO % 0.5 % (0-2.0); EOS % 2.7 % (0-4.5); HEMATOCRIT 28.4 % (32.4-45.2); HEMOGLOBIN 8.8 GM/dL (10.7-15.3); LYMPH % 31.7 % (8-40); MCHC 31.1 g/dl (32.0-36.0); MEAN CELL VOLUME 61.2 fl (80-96); MEAN PLT VOLUME 8.9 fl (7.5-11.1); MONO % 9.6 % (3.8-10.2); NEUT % 55.5 % (42.8-82.8); PLATELET COUNT 206 10^3/uL (134-434); RBC 4.63 M/mm3 (3.60-5.2); RDW 26.2 % (11.6-15.6)
[2024-07-23 09:32] LABS: MCH 19.1 pg (25.7-33.7)
[2024-07-23] MEDS ORDERED: ONDANSETRON 4 MG/2 ML VIAL IVPUSH PRN (11:43)
[2024-07-23] MEDS: IRON SUCROSE INJECTION 100 MG in SODIUM CHLORIDE 95 ML IVPB ONE (13:43)
[2024-07-23 14:59] VITALS: BP 104/64; PULSE 72; TEMP 98.8
[2024-07-24] MEDS ORDERED: FERROUS SO4 325 MG TABLET (FP) PO SCH (10:00)
== END 2024-07-23 16:19 | disposition home or self-care (01) | DRG 532 ==
LOC: JER 12:18 → JERBED 16:40 → INTOOBSV 16:40 → J8W 07-23 00:07 → OBSVTOIN 07-23 12:49
PROVIDERS: ADMIT Internal Medicine; ATTEND Internal Medicine
PROC: 30233N1 Transfusion of Nonautologous Red Blood Cells into Peripheral Vein, Percutaneous Approach (ICD-10-PCS; principal; 2024-07-23)
DX: N92.0 Excessive and frequent menstruation with regular cycle (principal); D62 Acute posthemorrhagic anemia; D50.9 Iron deficiency anemia, unspecified; R00.2 Palpitations; R10.13 Epigastric pain; R42 Dizziness and giddiness; R53.83 Other fatigue
CPT/HCPCS: 36415; 36430; 80053; 81003; 82272; 83540; 83550; 84443; 84703; 85025; 85610; 85730; 86850; 86900; 86901; 86922; 87086; 93005; 93010; 99285-25; G0378; J1756; P9058

== ENCOUNTER 2024-08-27 16:23 | Emergency (ER) | payer OTHER ==
[2024-08-27 16:45] VITALS: BMI 37.4
[2024-08-27 18:33] LABS: BASO % 0.2 % (0-2.0); EOS % 1.6 % (0-4.5); HEMOGLOBIN 7.9 GM/dL (10.7-15.3); MCH 20.9 pg (25.7-33.7); MCHC 31.7 g/dl (32.0-36.0); MEAN CELL VOLUME 65.9 fl (80-96); MEAN PLT VOLUME 8.3 fl (7.5-11.1); MONO % 11.1 % (3.8-10.2); NEUT % 55.1 % (42.8-82.8); PLATELET COUNT 261 10^3/uL (134-434); RBC 3.79 M/mm3 (3.60-5.2); RDW 30.9 % (11.6-15.6)
[2024-08-27 18:37] LABS: ADD RBC MORPHOLOGY YES
[2024-08-27 18:45] LABS: INR 1.01 (0.83-1.09); PROTHROMBIN TIME (PATIENT) 11.6 SEC (9.7-13.0)
[2024-08-27 18:49] LABS: URINE APPEARANCE CLEAR; URINE BILIRUBIN NEGATIVE (NEGATIVE); URINE COLOR YELLOW; URINE GLUCOSE (UA) NEGATIVE (NEGATIVE); URINE KETONE TRACE (NEGATIVE); URINE LEUK ESTERASE 1+ (NEGATIVE); URINE NITRITE NEGATIVE (NEGATIVE); URINE PROTEIN 3+ (NEGATIVE); URINE UROBILINOGEN 0.2 mg/dL (0.2-1.0)
[2024-08-27 18:59] LABS: POTASSIUM 4.2 mmol/L (3.5-5.1)
[2024-08-27 19:01] LABS: ALBUMIN 3.4 g/dl (3.4-5.0); BLOOD UREA NITROGEN 8.6 mg/dL (7-18); CALCIUM 8.6 mg/dL (8.5-10.1)
[2024-08-27 19:04] LABS: CREATININE 0.7 mg/dL (0.55-1.3)
[2024-08-27 19:07] LABS: TOT PROT 7.6 g/dl (6.4-8.2)
[2024-08-27 19:12] LABS: BILIRUBIN,TOTAL 0.6 mg/dL (0.2-1)
[2024-08-27 19:54] LABS: HIV INTERPRETATION NEGATIVE (NEGATIVE)
[2024-08-27 20:19] LABS: BASO % 0.4 % (0-2.0); EOS % 1.1 % (0-4.5); HEMATOCRIT 23.5 % (32.4-45.2); HEMOGLOBIN 7.4 GM/dL (10.7-15.3); LYMPH % 27.3 % (8-40); MCH 20.7 pg (25.7-33.7); MCHC 31.4 g/dl (32.0-36.0); MEAN CELL VOLUME 65.9 fl (80-96); MEAN PLT VOLUME 8.6 fl (7.5-11.1); MONO % 10.5 % (3.8-10.2); NEUT % 60.7 % (42.8-82.8); PLATELET COUNT 259 10^3/uL (134-434); RBC 3.56 M/mm3 (3.60-5.2); RDW 30.9 % (11.6-15.6); WHITE BLOOD COUNT 6.3 K/mm3 (4.0-10.0)
[2024-08-27 20:28] LABS: ADD RBC MORPHOLOGY YES
[2024-08-27 21:11] LABS: ANISOCYTOSIS 3+; OVALOCYTE 1+; PLATELET ESTIMATE ADEQUATE
[2024-08-27 22:58] VITALS: BP 115/74; PULSE 91; RESP 18; TEMP 98
== END 2024-08-27 23:03 | disposition home or self-care (01) ==
LOC: JER 16:23
DX: N93.9 Abnormal uterine and vaginal bleeding, unspecified (principal)
CPT/HCPCS: 36415; 80053; 81003; 84703; 85025; 85610; 86803; 86850; 86900; 86901; 87389; 99283-25

== ENCOUNTER 2024-08-29 10:51 | Inpatient (IN) | payer OTHER ==
[2024-08-29 12:20] LABS: BASO % 0.3 % (0-2.0); EOS % 1.3 % (0-4.5); HEMATOCRIT 24.2 % (32.4-45.2); HEMOGLOBIN 7.5 GM/dL (10.7-15.3); LYMPH % 22.6 % (8-40); MEAN CELL VOLUME 67.5 fl (80-96); MEAN PLT VOLUME 8.8 fl (7.5-11.1); MONO % 7.3 % (3.8-10.2); NEUT % 68.5 % (42.8-82.8); PLATELET COUNT 299 10^3/uL (134-434); RBC 3.58 M/mm3 (3.60-5.2); RDW 30.2 % (11.6-15.6); WHITE BLOOD COUNT 6.1 K/mm3 (4.0-10.0)
[2024-08-29 12:31] LABS: HCG,QUALITATIVE URINE Negative
[2024-08-29 12:32] LABS: ACTIVATED PTT 30.3 SECONDS (25.2-36.5); INR 0.95 (0.83-1.09); PH,URINE 6.5 (5.0-8.0); PROTHROMBIN TIME (PATIENT) 10.8 SEC (9.7-13.0); URINE APPEARANCE CLEAR; URINE BILIRUBIN NEGATIVE (NEGATIVE); URINE COLOR YELLOW; URINE GLUCOSE (UA) NEGATIVE (NEGATIVE); URINE KETONE NEGATIVE (NEGATIVE); URINE LEUK ESTERASE NEGATIVE (NEGATIVE); URINE NITRITE NEGATIVE (NEGATIVE); URINE PROTEIN NEGATIVE (NEGATIVE); URINE UROBILINOGEN 0.2 mg/dL (0.2-1.0)
[2024-08-29 12:40] LABS: POTASSIUM 4.4 mmol/L (3.5-5.1)
[2024-08-29 12:43] LABS: CALCIUM 8.9 mg/dL (8.5-10.1)
[2024-08-29 12:44] LABS: ALBUMIN 3.4 g/dl (3.4-5.0); BLOOD UREA NITROGEN 11.8 mg/dL (7-18)
[2024-08-29 12:47] LABS: CREATININE 0.7 mg/dL (0.55-1.3)
[2024-08-29 12:48] LABS: BILIRUBIN,TOTAL 0.4 mg/dL (0.2-1); TOT PROT 7.7 g/dl (6.4-8.2)
[2024-08-29 13:00] LABS: EPI CELLS 2.1 /uL (0-25.1); HYALINE CASTS 0.13 /uL (0-3.1); URINE BACTERIA 26.4 /uL (0-1359); URINE RBC 1210.9 /uL (0-23.9); URINE WBC 10.4 /uL (0-25.8)
[2024-08-29 13:36] LABS: HIV INTERPRETATION NEGATIVE (NEGATIVE)
[2024-08-29] MEDS ORDERED: FAMOTIDINE 20 MG/50 ML IVPB 20 MG/50 ML MG IVPB ONE (15:05)
[2024-08-29] MEDS ORDERED: ONDANSETRON 4 MG/2 ML VIAL ONE (15:05)
[2024-08-29] MEDS: SODIUM CHLORIDE 0.9% 1000 ML INFUS.BAG IV ONE (15:13)
[2024-08-29] MEDS: FAMOTIDINE 20 MG/50 ML IVPB 20 MG/50 ML MG IVPB ONE (15:13)
[2024-08-29] MEDS: ONDANSETRON 4 MG/2 ML VIAL IVPUSH ONE ×2 (15:13→22:10)
[2024-08-29] MEDS ORDERED: TRANEXAMIC ACID 1000 MG/10 ML VIAL ONE (15:16)
[2024-08-29 15:21] LABS: BASO % 0.2 % (0-2.0); EOS % 1.2 % (0-4.5); HEMATOCRIT 21.2 % (32.4-45.2); LYMPH % 26.8 % (8-40); MCH 20.6 pg (25.7-33.7); MCHC 31.1 g/dl (32.0-36.0); MEAN CELL VOLUME 66.1 fl (80-96); MEAN PLT VOLUME 8.4 fl (7.5-11.1); MONO % 7.4 % (3.8-10.2); NEUT % 64.4 % (42.8-82.8); PLATELET COUNT 256 10^3/uL (134-434); RBC 3.21 M/mm3 (3.60-5.2); RDW 30.5 % (11.6-15.6); WHITE BLOOD COUNT 6.1 K/mm3 (4.0-10.0)
[2024-08-29 15:30] LABS: HEMOGLOBIN 6.6 GM/dL (10.7-15.3)
[2024-08-29] MEDS: TRANEXAMIC ACID 1000 MG/10 ML VIAL IVPUSH ONE (15:30)
[2024-08-29 18:00] VITALS: BMI 37.3
[2024-08-29] MEDS: medroxyPROGESTERone ACET 5 MG TABLET PO ONE (22:34)
[2024-08-30 01:14] LABS: BASO % 0.2 % (0-2.0); EOS % 0.4 % (0-4.5); HEMATOCRIT 22.9 % (32.4-45.2); LYMPH % 13.2 % (8-40); MCH 20.3 pg (25.7-33.7); MCHC 30.6 g/dl (32.0-36.0); MEAN CELL VOLUME 66.4 fl (80-96); MEAN PLT VOLUME 8.3 fl (7.5-11.1); MONO % 5.6 % (3.8-10.2); NEUT % 80.6 % (42.8-82.8); PLATELET COUNT 287 10^3/uL (134-434); RBC 3.45 M/mm3 (3.60-5.2); RDW 30.8 % (11.6-15.6); WHITE BLOOD COUNT 9.8 K/mm3 (4.0-10.0)
[2024-08-30 01:45] LABS: POTASSIUM 4.2 mmol/L (3.5-5.1)
[2024-08-30 01:46] LABS: CALCIUM 8.7 mg/dL (8.5-10.1)
[2024-08-30 01:50] LABS: CREATININE 0.9 mg/dL (0.55-1.3)
[2024-08-30 08:04] LABS: URINE APPEARANCE CLEAR; URINE BILIRUBIN NEGATIVE (NEGATIVE); URINE COLOR YELLOW; URINE GLUCOSE (UA) NEGATIVE (NEGATIVE); URINE KETONE NEGATIVE (NEGATIVE)
[2024-08-30 08:05] LABS: PH,URINE 5.5 (5.0-8.0); URINE UROBILINOGEN 0.2 mg/dL (0.2-1.0)
[2024-08-30 08:06] LABS: EPI CELLS 14 /uL (0-25.1); HYALINE CASTS 1 /uL (0-3.1); URINE BACTERIA 79 /uL (0-1359); URINE LEUK ESTERASE TRACE (NEGATIVE); URINE NITRITE NEGATIVE (NEGATIVE); URINE PROTEIN NEGATIVE (NEGATIVE); URINE RBC 347 /uL (0-23.9); URINE WBC 69 /uL (0-25.8)
[2024-08-30 11:43] LABS: HEMOGLOBIN 7.3 GM/dL (10.7-15.3); MCH 21.7 pg (25.7-33.7); MEAN CELL VOLUME 65.9 fl (80-96); MEAN PLT VOLUME 8.7 fl (7.5-11.1); PLATELET COUNT 285 10^3/uL (134-434); RBC 3.34 M/mm3 (3.60-5.2); RDW 30.5 % (11.6-15.6); WHITE BLOOD COUNT 7.2 K/mm3 (4.0-10.0)
[2024-08-30] MEDS: MULTIVITAMINS (DAILY MVI) TABLET (FP) PO ONE (12:15)
[2024-08-30] MEDS: IRON SUCROSE INJECTION 100 MG in SODIUM CHLORIDE 95 ML IVPB ONE (12:15)
[2024-08-30] MEDS ORDERED: ACETAMINOPHEN 325 MG TABLET (FP) PO PRN (13:56)
[2024-08-30] MEDS: FOLIC ACID 1 MG TABLET (FP) PO SCH (14:32)
[2024-08-31 05:24] VITALS: TEMP 99.1
[2024-08-31] MEDS: IRON SUCROSE INJECTION 200 MG in SODIUM CHLORIDE 100 ML IVPB ONE (06:46)
[2024-08-31 09:38] LABS: BASO % 0.2 % (0-2.0); EOS % 0.9 % (0-4.5); HEMATOCRIT 24.1 % (32.4-45.2); HEMOGLOBIN 7.5 GM/dL (10.7-15.3); LYMPH % 18.9 % (8-40); MEAN CELL VOLUME 67.6 fl (80-96); MEAN PLT VOLUME 8.5 fl (7.5-11.1); MONO % 5.3 % (3.8-10.2); NEUT % 74.7 % (42.8-82.8); PLATELET COUNT 329 10^3/uL (134-434); RBC 3.57 M/mm3 (3.60-5.2); WHITE BLOOD COUNT 7.2 K/mm3 (4.0-10.0)
[2024-08-31] MEDS: MULTIVITAMINS (DAILY MVI) TABLET (FP) PO SCH (09:49)
[2024-08-31] MEDS: PANTOPRAZOLE 40 MG TABLET PO SCH (09:49)
[2024-08-31 09:57] LABS: POTASSIUM 4.3 mmol/L (3.5-5.1)
[2024-08-31 10:04] LABS: ALBUMIN 3.2 g/dl (3.4-5.0)
[2024-08-31 10:05] LABS: BLOOD UREA NITROGEN 9.1 mg/dL (7-18); CALCIUM 8.6 mg/dL (8.5-10.1); MAGNESIUM 2.3 mg/dL (1.8-2.4)
[2024-08-31 10:08] LABS: CREATININE 0.8 mg/dL (0.55-1.3); TOT PROT 7.3 g/dl (6.4-8.2)
[2024-08-31 10:09] LABS: BILIRUBIN,TOTAL 0.6 mg/dL (0.2-1)
[2024-08-31 10:12] LABS: ANISOCYTOSIS 3+; MACROCYTOSIS 1+
[2024-08-31 11:39] VITALS: BP 108/74; PULSE 76; RESP 16
[2024-08-31] MEDS: ONDANSETRON 4 MG TABLET PO ONE (12:37)
== END 2024-08-31 14:53 | disposition home or self-care (01) | DRG 663 ==
LOC: JER 10:51 → JERBED 15:54 → J5S 17:45 → OBSVTOIN 08-30 13:55
PROVIDERS: ADMIT Internal Medicine; ATTEND Nurse Practitioner Family
DX: D62 Acute posthemorrhagic anemia (principal); N92.1 Excessive and frequent menstruation with irregular cycle; R00.0 Tachycardia, unspecified; R00.2 Palpitations; R42 Dizziness and giddiness; R53.83 Other fatigue; R73.03 Prediabetes; N93.9 Abnormal uterine and vaginal bleeding, unspecified; T80.89XA Other complications following infusion, transfusion and therapeutic injection, initial encounter; Y84.9 Medical procedure, unspecified as the cause of abnormal reaction of the patient, or of later complication, without mention of misadventure at the time of the procedure; N83.209 Unspecified ovarian cyst, unspecified side
CPT/HCPCS: 0241U-QW; 36415; 36430; 76830-TC; 80048; 80053; 81003; 82607; 82728; 82746; 82962; 83540; 83550; 83735; 84703; 85025; 85027; 85610; 85730; 86078; 86803; 86850; 86900; 86901; 86922; 87040; 87077; 87086; 87389; 99285-25; G0378; J1756; P9058